=== PATIENT | female | born 1970 | race Caucasian/White ===

== ENCOUNTER 2019-09-27 11:13 | Outpatient (CLI) | payer OTHER, SELFPAY ==
--- NOTE | ~2019-09-27 | XR_ITS ---
EXAMINATION: XR chest 1V EXAM DATE: 09/27/2019 11:37 INDICATION: Left upper quadrant pain. TECHNIQUE: Frontal and lateral projections of the chest obtained and reviewed. Comparison is made to prior examination from 05/06/2005. FINDINGS: The lungs are clear. There are no pleural effusions. The cardiomediastinal silhouette is within normal limits. There is no pneumothorax suspected. Mild thoracic dextroscoliosis. IMPRESSION: No acute cardiopulmonary findings. Reviewed, dictated and finalized at location B.
--- NOTE | ~2019-09-27 | XR_ITS ---
EXAMINATION: XR abdomen obstructive series EXAM DATE: 09/27/2019 11:37 INDICATION: Left upper quadrant pain. TECHNIQUE: Frontal upright projection of the upper abdomen, frontal projection of the lower abdomen f or interpretation. There is no prior study for comparison. FINDINGS: There is expected amount of colonic stool and gas. No small bowel dilation, nonobstructiv e bowel gas pattern. There are no suspicious calcifications identified. There is no organomegaly suspected. Mild lumbar levoscoliosis. IMPRESSION: Unremarkable abdomen x-ray exam. Reviewed, dictated and finalized at location B.
== END 2019-09-27 11:14 | disposition home or self-care (01) ==
LOC: ANHIMG 11:23
PROVIDERS: PCP Nurse Practitioner; Visit Provider Nurse Practitioner
DX: R10.12 Left upper quadrant pain (principal)
CPT/HCPCS: 71045; 74019

== ENCOUNTER 2019-11-22 15:55 | Outpatient (CLI) | payer OTHER, SELFPAY ==
--- NOTE | ~2019-11-22 | MM_ITS ---
EXAMINATION: MM screening [facility] BI w ayesha HISTORY: Screening TECHNIQUE: Craniocaudal and mediolateral oblique 3-D tomosynthesis images were obtained and synthetic 2-D images were generated. CAD analysis was submitted and interpreted. COMPARISON: Comparison to multiple prior studies sequentially, with oldest reviewed study dated 09/2011. BREAST PARENCHYMAL COMPOSITION: There are scattered areas of fibroglandular density. FINDINGS: There is no evidence of suspicious mass, calcification, or architectural distortion to sugg est malignancy in either breast. There has been no suspicious interval change. IMPRESSION: 1. No mammographic evidence of malignancy. 2. Recommend routine screening mammography in one year. BI-RADS Category 1: Negative Reviewed, dictated and finalized at location A.
== END 2019-11-22 15:56 | disposition home or self-care (01) ==
LOC: ANHIMG 15:58
PROVIDERS: PCP Nurse Practitioner; Visit Provider Obstetrics & Gynecology
DX: Z12.31 Encounter for screening mammogram for malignant neoplasm of breast (principal)
CPT/HCPCS: 77063; 77067

== ENCOUNTER 2020-09-25 12:35 | Observation (INO) | payer OTHER, SELFPAY ==
--- NOTE | ~2020-09-25 | XR_ITS ---
XR chest 2V DATE: 09/25/2020 18:12 INDICATION: Syncope x2. Sternal chest pain towards the left side. TECHNIQUE: AP and lateral views COMPARISON: 09/27/2019 PA chest FINDINGS: There is dextro scoliosis of the thoracic spine. Normal heart size. No hilar or mediastinal enlargement. No pulmonary infiltrate or consolidation, ple ural effusion or pulmonary congestion or pneumothorax. IMPRESSION: No active cardiopulmonary disease Reviewed, dictated and finalized at location A.
--- NOTE | ~2020-09-25 | US_ITS ---
US renal BI 09/26/2020 09:50 Procedure: Realtime transabdominal ultrasound of the kidneys and bladder. Indication: Acute renal insufficiency. Comparison: 08/12/2016 Findings: Renal echotexture is normal bilaterally without hydronephrosis, contour deforming mass or r enal calculus. The right kidney measures 9.5 cm and left kidney measures 9.5 cm. Bladder is not well distended for evaluation. Impression: 1: Unremarkable renal ultrasound. No stones, masses or hydronephrosis. Reviewed, dictated and finalized at location A. Impression: 1: Unremarkable renal ultrasound. No stones, masses or hydronephrosis.
--- NOTE | ~2020-09-25 | CT_ITS ---
EXAMINATION: CT cervical spine wo con DATE: 09/25/2020 13:54 INDICATION: Syncope. TECHNIQUE: Computed tomography (CT) of the cervical spine was performed without intravenous contrast. Automated exposure control and iterative reconstruction technique were employed. The dose-length pro duct was 477.94 mGy-cm. COMPARISON: None FINDINGS: C1 ring is ununited posteriorly, a normal variant. Vertebral body heights are normal. There is mildly decreased disc height at C4-C5, severely decreased disc height at C5-C6, and moderately de creased disc height at C6-C7. The following disc levels are specifically discussed: C2-C3: There is no uncovertebral joint osteoarthritis. There is mild bilateral facet joint osteoarthr itis. There is no neural foraminal stenosis. There is no central canal stenosis. C3-C4: There is mild right and moderate left uncovertebral joint osteoarthritis. There is mild left f acet joint osteoarthritis. There is mild left neural foraminal stenosis. There is no central canal st enosis. C4-C5: There is severe right and mild left uncovertebral joint osteoarthritis. There is no facet join t osteoarthritis. There is mild bilateral neural foraminal stenosis. There is mild central canal sten osis. C5-C6: There is severe bilateral uncovertebral joint osteoarthritis. There is mild right facet joint osteoarthritis. There is moderate bilateral neural foraminal stenosis. There is mild central canal st enosis. C6-C7: There is severe bilateral uncovertebral joint osteoarthritis. There is mild right and severe l eft facet joint osteoarthritis. There is moderate right and mild left neural foraminal stenosis. Ther e is mild central canal stenosis. C7-T1: There is no uncovertebral joint osteoarthritis. There is severe bilateral facet joint osteoart hritis. There is mild bilateral neural foraminal stenosis. There is no central canal stenosis. IMPRESSION: 1. No fracture. 2. Severe cervical spondylosis. Reviewed, dictated and finalized at location B.
--- NOTE | ~2020-09-25 | CT_ITS ---
EXAMINATION: CT brain wo con DATE: 09/25/2020 13:54 INDICATION: Syncope. TECHNIQUE: Computed tomography (CT) of the head was performed without intravenous contrast. The mA wa s adjusted according to patient size. Iterative reconstruction technique was employed. The dose-lengt h product was 605.33 mGy-cm. COMPARISON: Head CT 07/01/2015 FINDINGS: There is no intracranial hemorrhage, acute infarction, or abnormal intracranial mass lesion . There are scattered areas of low attenuation in the cerebral white matter. The ventricles are chana l in size. There is complete opacification of the right frontal, right anterior ethmoid, and right ma xillary sinuses with thickening and sclerosis of the sinus alvarado, consistent with chronic sinusitis. The mastoid air cells are normal. The orbits are normal. IMPRESSION: 1. Mild nonspecific cerebral white matter disease, which likely represents chronic small vessel ische rafael disease. 2. Chronic sinusitis. Reviewed, dictated and finalized at location B. IMPRESSION: 1. Mild nonspecific cerebral white matter disease, which likely represents nail maker naomie small vessel ischemic disease. 2. Chronic sinusitis.
[2020-09-25 12:42] VITALS: PULSE 84; RESP 16; TEMP 36.4; O2SAT 100
[2020-09-25 15:36] VITALS: BP 103/70; PULSE 88; RESP 16; TEMP 36.3; O2SAT 99
[2020-09-25 17:48] VITALS: BP 114/76; PULSE 84; RESP 20; O2SAT 97
--- NOTE | 2020-09-25 17:50 | ECG_ITS ---
Measurements Intervals [place] Rate: 76 P: 50 RI: 173 QRS: -33 QRSD: 83 T: 201 QT: 384 QTc: 434 Interpretive Statements SINUS RHYTHM LEFT AXIS DEVIATION LEFT VENTRICULAR HYPERTROPHY WITH ST-T CHANGE CANNOT RULE OUT SEPTAL INFARCT, AGE INDETERMINATE BORDERLINE ST-T WAVE ABNORMALITY- ANTEROLAT/INF LEADS BASELINE ARTIFACT- I, II, AVR, V1 ABNORMAL ECG Electronically Signed On 09-25-2020 20:09:39 CDT by Renny Dai D.O.
--- NOTE | 2020-09-25 17:51 | ED.SYNCOPE ---
HPI - Syncope General Chief Complaint: Syncope Stated Complaint: syncope Time Seen by Provider: 09/25/20 17:35 Source: patient and RN notes reviewed Mode of arrival: ambulatory Limitations: no limitations History of Present Illness HPI narrative: This is a 50 year old female with history of migraines, fibromyalgia who presents for evaluation of syncopal episode. Patient states this morning she had a syncopal episode. She states she was walking to the kitchen to feed her cat. She reports opening the refrigeratory and she started feeling lightheaded and she passed out. She reports her was trying to help her up and she passed out again. Patient also reports intermittent nonradiating midsternal chest pain. She denies having chest at time of syncopal episode. She also reports her chest pain is not exertional and it only last 5 minutes. Related Data Home Medications Medication Instructions Recorded Confirmed testosterone 50 mg/5 gram (1 %) See Rx Instructions TRANSDERMAL 03/21/20 09/25/20 transdermal gel DAILY buspirone 15 mg PO HS 09/25/20 09/25/20 buspirone 30 mg PO BID 09/25/20 09/25/20 cetirizine [Zyrtec] 10 mg PO DAILY 09/25/20 09/25/20 clonazepam 0.5 mg PO QID PRN 09/25/20 09/25/20 cyclobenzaprine 10 mg PO QID PRN 09/25/20 09/25/20 dicyclomine 10 mg PO DAILY 09/25/20 09/25/20 fenofibrate 54 mg PO DAILY 09/25/20 09/25/20 gabapentin 300 mg PO TID 09/25/20 09/25/20 hydrocodone-acetaminophen 10 tablet PO Q4H PRN 09/25/20 09/25/20 hydroxyzine HCl 50 mg PO HS 09/25/20 09/25/20 levothyroxine [Euthyrox] 25 mcg PO DAILY 09/25/20 09/25/20 losartan-hydrochlorothiazide 50 tablet PO DAILY 09/25/20 09/25/20 meloxicam 7.5 mg PO DAILY 09/25/20 09/25/20 metformin 1,000 mg PO BID 09/25/20 09/25/20 omeprazole 40 mg PO DAILY 09/25/20 09/25/20 propranolol 120 mg PO HS 09/25/20 09/25/20 ropinirole 1 mg PO DAILY PRN 09/25/20 09/26/20 topiramate 50 mg PO DAILY 09/25/20 09/25/20 vilazodone [Viibryd] 40 mg PO HS 09/25/20 09/25/20 Allergies Allergy/AdvReac Type Severity Reaction Status Date / Time Penicillins Allergy Unknown Rash Verified 09/26/20 00:15 sumatriptan AdvReac Intermediate gi upset Verified 09/26/20 00:15 Review of Systems Review of Systems: All systems reviewed & are unremarkable except as noted in HPI and below Constitutional: Constitutional: Denies chills and Denies fever(s) Eyes: Eyes: Denies change in vision and Denies photophobia ENT: Reports nasal congestion and Denies sore throat Cardiovascular: Cardiovascular: Reports chest pain, Denies rapid heart rate and Denies radiating jaw, neck or arm pain Respiratory: Respiratory: Denies cough, Denies dyspnea and Denies wheezing Gastrointestinal: Gastrointestinal: Denies abdominal pain, Denies diarrhea, Denies nausea and Denies vomiting Neurologic: Reports syncope [facility] Past Medical History Medical History (Updated 09/26/20 @ 01:45 by Heidy Garcia MD) Acid reflux Anxiety Asthma Disorder of thyroid Fibromyalgia High cholesterol Surgical History Surgical History (Updated 12/03/19 @ 09:54 by Ingrid Craft) H/O removal of cyst tailbone H/O tubal ligation History of appendectomy History of colposcopy Family History Family History Mother Diabetes mellitus Hypertension Hyperlipidemia Father Hyperlipidemia Hypertension Social History Social History (Updated 12/03/19 @ 09:55 by Ingrid Craft) Smoking status: Never smoker Alcohol intake: never Substance use: current Substance use type: does not use Spiritual care concerns: No Exam Const: General: no acute distress and alert Nutritional Appearance: obese Eyes: Pupils: Equal, round and reactive pupils present EOM: EOMs intact bilaterally Chest: Chest palpation & inspection: normal inspection of the chest Resp: Effort & Inspection: normal respiratory effort and no retractions Auscultatio
[2020-09-25 18:09] LABS: Basophils Absolute Auto 0.1 K/mm3 (0.0-0.1); Basophils Percent Auto 0.5 % (0.2-1.2); Eosinophils Absolute Auto 0.2 K/mm3 (0-0.3); Eosinophils Percent Auto 1.6 % (0-4.4); Hematocrit 49.7 % (37.0-47.0); Hemoglobin 15.9 g/dL (12.0-15.0); Immature Granulocyte Absolute 0.03 K/mm3 (0.00-0.031); Immature Granulocyte Percent A 0.3 % (0-0.5); Lymphocytes Absolute Auto 6.43 K/mm3 (0.9-3.2); Lymphocytes Percent Auto 56.5 % (18.3-44.2); Mean Corpuscular Volume 90.5 fl (80-100); Mean Platelet Volume 10.6 fl (7.4-10.4); Monocytes Absolute Auto 0.9 K/mm3 (0.1-0.6); Monocytes Percent Auto 7.8 % (2.6-8.5); Neutrophils Absolute Auto 3.8 K/mm3 (1.3-6.7); Neutrophils Percent Auto 33.3 % (45.5-73.1); Platelet Count Result 359 k/mm3 (150-375); Red Blood Count 5.49 M/mm3 (4.2-5.4); Red Cell Distribution Width 12.8 % (11.5-14.5); White Blood Count 11.4 K/mm3 (4.5-10.0)
[2020-09-25 18:21] LABS: INR 0.9; Prothrombin Time 11.9 Seconds (11.1-14.7)
[2020-09-25 18:22] LABS: Partial Thromboplastin Time 24.6 SECONDS (22.3-36.8)
[2020-09-25 18:24] LABS: Alanine Aminotransferase 33 U/L (4-35); Albumin Level 4.8 g/dL (3.5-5.1); Alkaline Phosphatase 80 U/L (38-126); Anion Gap 12 mmol/L (8-16); Aspartate Amino Transferase 62 U/L (14-36); Bilirubin,Total 0.7 mg/dL (0.2-1.3); Blood Urea Nitrogen 29 mg/dL (7-17); Calcium 10.6 mg/dL (8.4-10.2); Carbon Dioxide 23 mmol/L (22-30); Chloride 108 mmol/L (98-107); D Dimer 0.36 ug/mL (<0.48); Estimated CRCL calculation 37 ml/min; Estimated Glomerular Filt Rate 25; Glucose 127 mg/dL (65-110); Potassium 4.6 mmol/L (3.4-5.0); Sodium 143 mmol/L (137-145)
[2020-09-25 18:36] LABS: Troponin I < 0.012 ng/mL (0.000-0.034)
[2020-09-25] MEDS: SODIUM CHLORIDE 0.9% IV 1,000 ML 999 ML IV CONT ×2 (18:42)
[2020-09-25 19:57] LABS: Add Urine Microscopic? YES; Appearance Urine Cloudy (Clear); Bilirubin Urine 2+ (Negative); Blood Urine Negative (Negative); Color Urine Amber (Yellow); Glucose Urine UA Negative (Negative); Ketones Urine Negative (Negative); Leukocyte Esterase Ur 3+ LEU/UL (Negative); Nitrate Urine Negative (Negative); Protein Urine 2+ mg/dL (Negative); RBC Urine 0-2 /hpf (0-2); Specific Grav Ur 1.027 (1.001-1.035); Squamous Epithelial Cell Urine Rare /hpf (Few); WBC Urine 0-3 /hpf
[2020-09-25 20:00] VITALS: PULSE 83
--- NOTE | 2020-09-25 20:41 | PM.IMHP ---
H&P: HPI History of Present Illness Date/Time: 09/25/20 20:41 Chief Complaint: Syncope Narrative: This is a 50-year-old female with past medical history significant for type 2 diabetes mellitus on metformin, hypertension, hypothyroidism, fibromyalgia, dyslipidemia, asthma, anxiety, GERD. Patient presented to the emergency room after she had a syncopal episode according to patient she was standing feeding the cat when she felt every sitting in turning black around her aunt neck is thin she was found laying on the floor by her who was in the house. Patient states that she has been her usual state of health prior to this. She denies any fevers, rigors ,chills, nausea, vomiting, diarrhea, shortness of breath, cough, sputum production, chest pain, dizziness, lightheadedness, headaches, tremors. Preliminary workup has been essentially nonrevealing. Patient has been placed in observation. Review of Systems Review of Systems: Patient brought to the hospital due to syncopal episode. Constitutional: Constitutional: Denies chills, Denies fatigue, Denies fever(s), Denies frequent falls, Denies headache(s), Denies malaise and Denies weakness Eyes: Eyes: Denies change in vision ENT: Denies dysphagia, Denies vertigo, Denies dizziness, Denies nasal congestion, Denies nasal discharge, Denies nasal obstruction and Denies odynophagia Cardiovascular: Cardiovascular: Reports syncope, Denies irregular heart rhythm, Denies leg edema, Reports lightheadedness, Denies radiating jaw, neck or arm pain, Denies palpitations, Denies dyspnea, Denies dyspnea on exertion and Denies orthopnea Respiratory: Respiratory: Denies cough and Denies dyspnea Gastrointestinal: Gastrointestinal: Denies dyspepsia, Denies heartburn, Denies diarrhea, Denies nausea and Denies vomiting Genitourinary: Genitourinary: Reports no additional female genitourinary complaints Musculoskeletal: Musculoskeletal: Reports no additional musculoskeletal complaints Integumentary/Breasts: Skin/Breast: Reports system reviewed and no additional complaints, except as docu Neurologic: Reports system reviewed and no additional complaints, except as documented Psychiatric: Psychiatric: Reports no additional psychiatric complaints Endocrine: Endocrine: Reports no additional endocrine complaints Hematologic/Lymphatic: Hematologic/Lymphatic: Reports no additional hematologic/lymphatic complaints Allergic/Immunologic: Allergic/Immunologic: Reports no additional allergic/immunologic complaints PMFSH Past Medical History Medical History (Updated 09/25/20 @ 22:47 by Aram Patricio MD) Acid reflux Anxiety Asthma Disorder of thyroid Fibromyalgia High cholesterol Surgical History Surgical History (Updated 12/03/19 @ 09:54 by Ingrid Craft) H/O removal of cyst tailbone H/O tubal ligation History of appendectomy History of colposcopy Family History Family History (Updated 12/03/19 @ 09:55 by Ingrid Craft) Mother Diabetes mellitus Hypertension Hyperlipidemia Father Hyperlipidemia Hypertension Social History Social History (Updated 12/03/19 @ 09:55 by Ingrid Craft) Smoking status: Never smoker Alcohol intake: never Substance use: never Meds Home Medications and Allergies Home Medications Medication Instructions Recorded Confirmed Type estradiol 1 g VAGINAL 3XW #42.5 g 12/28/19 09/25/20 Rx testosterone 50 mg/5 gram (1 %) See Rx Instructions TRANSDERMAL 03/21/20 09/25/20 History transdermal gel DAILY buspirone 15 mg PO HS 09/25/20 09/25/20 History buspirone 30 mg PO BID 09/25/20 09/25/20 History cetirizine [Zyrtec] 10 mg PO DAILY 09/25/20 09/25/20 History clonazepam 0.5 mg PO QID PRN 09/25/20 09/25/20 History cyclobenzaprine 10 mg PO QID PRN 09/25/20 09/25/20 History dicyclomine 10 mg PO DAILY 09/25/20 09/25/20 History fenofibrate 54 mg PO DAILY 09/25/20 09/25/20 History gabapentin 300 mg PO TID 09/25/20 09/25/20 History hydrocodone-
[2020-09-25 22:19] VITALS: PULSE 84; RESP 20; O2SAT 97
[2020-09-25 22:30] VITALS: BP 151/94; PULSE 78; RESP 20; TEMP 36.1; O2SAT 98; BMI 41.0
[2020-09-25] MEDS: SODIUM CHLORIDE 0.9% IV 1,000 ML 125 ML IV CONT (23:30)
[2020-09-26] VITALS (13 sets, daily range): BP systolic 111–145; BP diastolic 63–84; PULSE 63–86; RESP 18–20; TEMP 35.8–36.7; O2SAT 98–100
[2020-09-26] MEDS: GABAPENTIN 300 MG CAPSULE PO ×4 (00:06→16:43)
[2020-09-26] MEDS: PROPRANOLOL HCL 60 MG CAPSULE CR 120 MG PO ×2 (00:06→20:53)
[2020-09-26] MEDS: hydrOXYzine HCL 25 MG TABLET 50 MG PO ×2 (00:06→20:53)
[2020-09-26] MEDS: busPIRone HCL 5 MG TABLET 15 MG PO ×2 (00:08→20:53)
--- NOTE | 2020-09-26 00:12 | ADMGEN ---
This patient, Amrita Hartman, was admitted to Medical Room 252-01. Patient/family oriented to hospital policies and general routines including ID bracelet, bed and alarms, visiting hours, pain management, procedures, bathroom and other care routines, personal items, smoking policy, room service/diet, and visiting hours. Information on how to activate the Rapid Response Team has been discussed. Patient/Family are encouraged to report perceived risks to care and to ask questions if they do not understand what they are told or what they should do.
[2020-09-26] MEDS: LEVOTHYROXINE SODIUM 25 MCG TABLET PO (05:36)
[2020-09-26 05:54] LABS: Hematocrit 40.2 % (37.0-47.0); Hemoglobin 12.7 g/dL (12.0-15.0); Mean Corpuscular HGB Conc 31.6 g/dl (32-36); Mean Corpuscular Volume 91.8 fl (80-100); Mean Platelet Volume 10.3 fl (7.4-10.4); Platelet Count Result 280 k/mm3 (150-375); Red Blood Count 4.38 M/mm3 (4.2-5.4); Red Cell Distribution Width 12.8 % (11.5-14.5); White Blood Count 9.5 K/mm3 (4.5-10.0)
--- NOTE | 2020-09-26 07:16 | PM.IMPN ---
Progress Note: A&P Assessment and Plan (1) Syncope and collapse: Code(s): R55 - Syncope and collapse Status: Acute Assessment and Plan: Receiving IV fluids Unclear etiology. Need to rule out cardiac etiologies. Suspect secondary to large amount of psychotropic medications and sedatives that patient is taking. CT head reviewed which is negative for any acute intracranial pathology. Echocardiogram is pending. Cardiology has been consulted. Supportive care Up with assistance. PT OT will be consulted. (2) EZEQUIEL (acute kidney injury): Code(s): N17.9 - Acute kidney failure, unspecified Status: Acute Assessment and Plan: Renal parameters improving with creatinine of 1.6 today which is down from 2.1 yesterday. Holding lisinopril and hydrochlorothiazide Renal ultrasound has been ordered. Receiving IV fluids which will be continued. Repeat BMP in a.m. Subjective Date/time seen: 09/26/20 07:16 She is feeling better. She denied have any further episodes of syncope. He denied have any cough shortness of breath chest pain palpitation dizziness or lightheadedness. Review of Systems Review of Systems: A comprehensive review of systems has been reviewed with the patient and most of the symptoms are negative except the one's mentioned above in HPI. 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 oriented x3 Psychiatric cooperative appropriate mood and affect Extremities no edema Objective Data Vital Signs Vital Signs: Vital Signs - 24 hr 09/25/20 12:42 09/25/20 15:36 09/25/20 17:48 Temperature 36.4 C 36.3 C L Pulse Rate 84 88 84 Respiratory Rate 16 16 20 Blood Pressure 103/70 114/76 Pulse Oximetry 100 99 97 09/25/20 20:00 09/25/20 22:19 09/25/20 22:30 Temperature 36.1 C L Pulse Rate 83 84 78 Respiratory Rate 20 20 Blood Pressure 151/94 H Pulse Oximetry 97 98 09/26/20 00:00 09/26/20 00:06 09/26/20 04:00 Temperature Pulse Rate 85 74 71 Respiratory Rate Blood Pressure Pulse Oximetry Intake/Output Intake/Output: Intake & Output 08/17/21 08/18/21 08/19/21 08/20/21 23:59 23:59 23:59 23:59 Intake Total 1999 Balance 1999 Meds/Results Medications: Active Medications Generic Name Dose Route Start Last Admin Trade Name Freq PRN Reason Stop Dose Admin Hydrocodone Bitart/Acetaminophen 1 tab 09/26/20 05:02 Hydrocodone/Acetaminophen (*Crx) 10-325 Mg Tablet PO Q4H PRN Pain Rated 7-10 Buspirone HCl 30 mg 09/26/20 09:00 Buspirone Hcl 10 Mg Tablet PO BID ELLIS Buspirone HCl 15 mg 09/25/20 22:40 09/26/20 00:08 Buspirone Hcl 5 Mg Tablet PO 15 mg HS ELLIS Administration Clonazepam 0.5 mg 09/25/20 22:29 Clonazepam (*Crx) 0.5 Mg Tablet PO QID PRN Anxiety Cyclobenzaprine HCl 10 mg 09/25/20 22:29 Cyclobenzaprine Hcl 10 Mg Tablet PO QID PRN Muscle Spasm Dicyclomine HCl 10 mg 09/26/20 09:00 Dicyclomine Hcl 10 Mg Capsule PO DAILY ELLIS Gabapentin 300 mg 09/25/20 23:00 09/26/20 00:06 Gabapentin 300 Mg Capsule PO 300 mg TID ELLIS Administration Hydroxyzine HCl 50 mg 09/25/20 23:00 09/26/20 00:06 Hydroxyzine Hcl 25 Mg Tablet PO 50 mg HS ELLIS Administration Sodium Chloride 1,000 mls @ 125 mls/hr 09/25/20 19:00 09/25/20 23:30 Normal Saline Iv IV CONT 125 mls/hr .Q8H ELLIS Administration Levothyroxine Sodium 25 mcg 09/26/20 06:30 09/26/20 05:36 Levothyroxine Sodium 25 Mcg Tablet PO 25 mcg DAILY@0630 ELLIS Administration Loratadine 10 mg 09/26/20 09:00 Loratadine 10 Mg Tablet PO QAM ELLIS Non-Formulary Medication 54 mg 09/26/20 09:00 Fenofibrate PO 10/26/20 09:01 DAILY ELLIS Non-Formulary Medication 40 mg 09/26/20 21:00 Vilazodone [Viibryd] PO 10/26/20 21:01 H
[2020-09-26] MEDS: SODIUM CHLORIDE 0.9% IV 1,000 ML 125 ML IV CONT ×2 (08:39→17:31)
[2020-09-26] MEDS: PANTOPRAZOLE 40 MG TABLET PO (08:41)
[2020-09-26] MEDS: LORATADINE 10 MG TABLET PO (08:41)
[2020-09-26] MEDS: DICYCLOMINE HCL 10 MG CAPSULE PO (08:41)
[2020-09-26] MEDS: busPIRone HCL 10 MG TABLET 30 MG PO ×2 (08:41→16:43)
[2020-09-26] MEDS: TOPIRAMATE 25 MG TABLET 50 MG PO (08:41)
[2020-09-26 08:44] LABS: Alanine Aminotransferase 24 U/L (4-35); Albumin Level 3.7 g/dL (3.5-5.1); Alkaline Phosphatase 57 U/L (38-126); Anion Gap 7 mmol/L (8-16); Aspartate Amino Transferase 38 U/L (14-36); Bilirubin,Total 0.6 mg/dL (0.2-1.3); Blood Urea Nitrogen 27 mg/dL (7-17); Calcium 9.2 mg/dL (8.4-10.2); Carbon Dioxide 23 mmol/L (22-30); Chloride 109 mmol/L (98-107); Estimated CRCL calculation 48 ml/min; Estimated Glomerular Filt Rate 34; Glucose 105 mg/dL (65-110); Potassium 3.5 mmol/L (3.4-5.0); Sodium 139 mmol/L (137-145)
[2020-09-26 09:06] LABS: Glucose Point of Care 111 mg/dl (65-105)
[2020-09-26 09:47] LABS: Band Neutrophils Percent 1 % (0-6); Eosinophils Absolute Manual 0.47 K/mm3 (0.02-0.5); Eosinophils Percent Manual 5 % (0-4); Lymphocytes Absolute Manual 4.37 K/mm3 (1.1-4.5); Monocytes Absolute Manual 0.28 K/mm3 (0.1-0.90); Monocytes Percent Manual 3 % (3-9); Neutrophils Absolute Manual 4.37 K/mm3 (1.7-7.2); Neutrophils Percent Manual 45 % (46-73); Total Cells Counted 100
[2020-09-26 09:48] LABS: Platelet Estimate Adequate (Adequate)
[2020-09-26 12:46] LABS: Glucose Point of Care 150 mg/dl (65-105)
[2020-09-26] MEDS: FENOFIBRATE,MICRONIZED 48 MG TABLET PO (14:10)
--- NOTE | 2020-09-26 14:11 | PM.CNCAR ---
Assessment and Plan Assessment and plan (1) Syncope and collapse: Code(s): R55 - Syncope and collapse <STARLA Barlow - Last Filed: 09/26/20 14:47> Status: Acute <STARLA Barlow - Last Filed: 09/26/20 14:47> Assessment and Plan: Two episodes of syncope with brief periods of loss of consciousness per the who witnessed both events. Dizziness, diaphoresis, flushing associated with the first occurrence of syncope. She does report a history of palpitations but denies feeling any palpitations associated with either of these recent syncopal events. She is in normal sinus rhythm currently and has not had any tachy or carlos arrhythmias noted on telemetry. Unlikely that syncope has a cardiac cause. Continue to monitor on telemetry Check orthostatic vitals BUN/Cr elevated. Could be dehydrated although she says she drinks plenty of water. No excessive diuretic use. She's receiving IV fluids. Echo pending OP quality assurance monitor final Further recommendations to follow after echo reviewed. <STARLA Barlow - Last Filed: 09/26/20 14:47> (2) Hypertension: Code(s): I10 - Essential (primary) hypertension <STARLA Barlow - Last Filed: 09/26/20 14:47> Status: Acute <STARLA Barlow - Last Filed: 09/26/20 14:47> Assessment and Plan: At goal. Continue home antihypertensives. <STARLA Barlow - Last Filed: 09/26/20 14:47> (3) High cholesterol: Code(s): E78.00 - Pure hypercholesterolemia, unspecified <STARLA Barlow - Last Filed: 09/26/20 14:47> Status: Acute <STARLA Barlow - Last Filed: 09/26/20 14:47> Assessment and Plan: Continue Fenofibrate <STARLA Barlow - Last Filed: 09/26/20 14:47> Additional Plan Attending addendum: I have personally seen and examined patient at bedside. I agree with the above documentation and plan of care as outlined. Patient presents with 2 episodes of syncope most likely vasovagal etiology symptomatic initially. Earlier vitals this morning document mild orthostasis. Patient presented with acute renal insufficiency with evidence of prerenal azotemia, hemoconcentration with elevated hemoglobin appropriately reduced with IV fluids which are continue at this time. Patient denies dizziness lightheadedness currently. Urinalysis with 3+ leukocyte esterase no wbc's Or symptoms. Patient denies chest pain, palpitations or shortness of breath. Patient has no complaints. examination: no apparent distress alert orient x3 breathing comfortably speaking full sentences sitting upright in bed. Lungs clear to auscultation cardiac regular rate and rhythm normal S1-S2 no murmurs clicks rubs gallops. Abdomen is soft obese nontender extremities no edema clubbing or cyanosis neurologic nonfocal exam psychiatric mood, appropriate impression/plan most likely vasovagal etiology of syncope with evidence of acute renal insufficiency, mild orthostasis and multiple psychotropic medications as well as antihypertensives with hydrochlorothiazide. Discontinue diuretic. Adjustment antihypertensives as appropriate. Discontinue IV fluids, check orthostatics. Will review echocardiogram unavailable which has not yet been performed. Recommendation to follow after review of echo. If echo unremarkable patient remains asymptomatic discharge home to follow-up with primary care physician as an outpatient. Primary service to assess urinalysis. Telemetry unremarkable without pauses and/or tachyarrhythmias. Thank for this consultation. <Myles Ghotra MD - Last Filed: 09/26/20 17:14> History of Present Illness History of Present Illness Consult date/time: 09/26/20 14:11 <STARLA Barlow - Last Filed: 09/26/20 14:47> Requesting physician: Fredo Kirkpatrick MD <STARLA Barlow - Last Filed: 09/26/20 14:47> Consult reason: Other ([facility]co
[2020-09-26] MEDS: HYDROcodone/acetaminophen (*CRX) 10-325 MG TABLET 1 TAB PO (14:15)
[2020-09-26 16:59] LABS: Glucose Point of Care 132 mg/dl (65-105)
[2020-09-26] MEDS: rOPINIRole HCL 1 MG TABLET PO (20:54)
[2020-09-26 21:05] LABS: Glucose Point of Care 154 mg/dl (65-105)
[2020-09-27] VITALS: PULSE 73
[2020-09-27] MEDS: SODIUM CHLORIDE 0.9% IV 1,000 ML 125 ML IV CONT ×2 (01:03→08:31)
[2020-09-27 04:00] VITALS: PULSE 73
[2020-09-27] MEDS: LEVOTHYROXINE SODIUM 25 MCG TABLET PO (05:11)
[2020-09-27 06:00] VITALS: BP 154/82; PULSE 73; RESP 18; TEMP 36.5; O2SAT 99
--- NOTE | 2020-09-27 06:00 | ECHO_ITS ---
Patient Info Name: Amrita Hartman Age: 50 years : 1970 Gender: Female Ht: 66 in Wt: 254 lbs BSA: 2.37 m2 HR: 73 bpm BP: 136 / 74 mmHg Technical Quality: Good Exam Date: 09/27/2020 8:31 AM Exam Location: [facility] Patient Status: Outpatient Admit Date: 09/25/2020 Staff Ordering Physician: Heidy Garcia MD Industrial Hygiene Manager: Argenis Valenzuela RDCS Attending Provider: Fredo Kirkpatrick MD Referring Physician: Radha CONCEPCION; Exam Type: CA echo doppler color flow Study Info Complete two-dimensional, color flow and Doppler transthoracic echocardiogram is performed. Summary 1. Complete two-dimensional, color flow and Doppler transthoracic echocardiogram is performed. 2. Left ventricular chamber dimension is normal. 3. Left ventricular systolic function is normal, estimated at 55-60%. 4. Left ventricular septal wall motion is normal. 5. There is mildly increased left ventricular wall thickness. 6. The left ventricular diastolic function is normal. 7. Right ventricular chamber dimension is mildly enlarged. 8. Right ventricular systolic function is normal. Left Ventricle Left ventricular chamber dimension is normal. Left ventricular systolic function is normal, estimated at 55-60%. There is mildly increased left ventricular wall thickness. Left ventricular septal wall motion is normal. The left ventricular diastolic function is normal. Right Ventricle Right ventricular chamber dimension is mildly enlarged. Right ventricular systolic function is normal. Left Atria Left atrial chamber dimension is normal. Right Atria Right atrial chamber dimension is normal. Aortic Valve The aortic valve is trileaflet. There is no aortic valve sclerosis. There is no aortic valve stenosis. There is no aortic valve regurgitation. Pulmonic Valve The pulmonic valve is normal. There is no pulmonic valve stenosis. There is no pulmonic regurgitation. Mitral Valve The mitral valve has normal leaflets. There is no mitral valve stenosis. There is no mitral valve regurgitation. Tricuspid Valve The tricuspid valve leaflets are normal. There is no significant tricuspid valve stenosis. There is trace tricuspid valve regurgitation. No pulmonary hypertension, estimated pulmonary arterial systolic pressure is 26 mmHg. Pericardium/Pleural The pericardium appears normal. There is no pericardial effusion. Inferior Vena Cava Inferior vena cava is not well visualized. Aorta The aortic root size at the sinus of Valsalva is normal. The prox ascending aorta size is normal. Left Ventricular Outflow Tract Name Value Normal LVOT 2D LVOT Diameter 2.2 cm LVOT Doppler LVOT Peak Gradient 5 mmHg LVOT Mean Gradient 3 mmHg LVOT VTI 23 cm LVOT VTI/AV VTI Ratio 1.1 LVOT Stroke Volume 85 ml LVOT CO 4.2 l/min LVOT CI 1.8 l/min/m2 Pulmonic Valve
[2020-09-27 06:13] LABS: Basophils Absolute Auto 0.1 K/mm3 (0.0-0.1); Basophils Percent Auto 0.7 % (0.2-1.2); Eosinophils Absolute Auto 0.3 K/mm3 (0-0.3); Eosinophils Percent Auto 4.1 % (0-4.4); Hematocrit 37.4 % (37.0-47.0); Immature Granulocyte Absolute 0.01 K/mm3 (0.00-0.031); Immature Granulocyte Percent A 0.1 % (0-0.5); Lymphocytes Absolute Auto 4.78 K/mm3 (0.9-3.2); Lymphocytes Percent Auto 62.6 % (18.3-44.2); Mean Corpuscular HGB Conc 32.1 g/dl (32-36); Mean Corpuscular Hemoglobin 29.6 pg (26-34); Mean Corpuscular Volume 92.3 fl (80-100); Mean Platelet Volume 10.9 fl (7.4-10.4); Monocytes Absolute Auto 0.8 K/mm3 (0.1-0.6); Monocytes Percent Auto 10.7 % (2.6-8.5); Neutrophils Absolute Auto 1.7 K/mm3 (1.3-6.7); Neutrophils Percent Auto 21.8 % (45.5-73.1); Platelet Count Result 249 k/mm3 (150-375); Red Blood Count 4.05 M/mm3 (4.2-5.4); Red Cell Distribution Width 12.9 % (11.5-14.5); White Blood Count 7.6 K/mm3 (4.5-10.0)
[2020-09-27 06:29] LABS: Hemoglobin A1C 5.6 % (<5.7)
[2020-09-27 06:44] LABS: Anion Gap 6 mmol/L (8-16); Blood Urea Nitrogen 15 mg/dL (7-17); Carbon Dioxide 25 mmol/L (22-30); Chloride 111 mmol/L (98-107); Estimated CRCL calculation 69 ml/min; Estimated Glomerular Filt Rate 52; Glucose 102 mg/dL (65-110); Potassium 3.5 mmol/L (3.4-5.0); Sodium 142 mmol/L (137-145)
[2020-09-27] MEDS: busPIRone HCL 10 MG TABLET 30 MG PO (08:23)
[2020-09-27] MEDS: GABAPENTIN 300 MG CAPSULE PO ×2 (08:24→12:40)
[2020-09-27] MEDS: LORATADINE 10 MG TABLET PO (08:24)
[2020-09-27] MEDS: TOPIRAMATE 25 MG TABLET 50 MG PO (08:24)
[2020-09-27] MEDS: FENOFIBRATE,MICRONIZED 48 MG TABLET PO (08:24)
[2020-09-27] MEDS: DICYCLOMINE HCL 10 MG CAPSULE PO (08:24)
[2020-09-27] MEDS: PANTOPRAZOLE 40 MG TABLET PO (08:24)
[2020-09-27 08:25] VITALS: PULSE 71
[2020-09-27 08:45] LABS: Glucose Point of Care 102 mg/dl (65-105)
[2020-09-27 10:15] VITALS: BP 133/72; BP 146/81; BP 150/91
[2020-09-27 12:00] VITALS: PULSE 70
[2020-09-27 13:05] LABS: Glucose Point of Care 102 mg/dl (65-105)
--- NOTE | 2020-09-27 15:13 | PM.DS ---
DS: Admitting Diagnosis Admitting Diagnosis Syncope Fibromyalgia Hypothyroidism Asthma Anxiety GERD Acute kidney injury Dehydration Hypercholesterolemia DS: Discharge Diagnosis Discharge Diagnosis (1) Syncope and collapse: Code(s): R55 - Syncope and collapse Status: Acute Assessment and Plan: Unclear etiology. Seems vasovagal syncope in nature. Suspect secondary to large amount of psychotropic medications, dehydration and sedatives that patient is taking. She was mildly orthostatic as well. She was hydrated with IV fluids. CT head reviewed which is negative for any acute intracranial pathology. Echocardiogram was performed which did not show any significant findings. Ejection fraction was 55-60%. Cardiology has been consulted with no further workup recommended. She was hydrated with IV fluids. Diuretics was discontinued at the time of discharge. No significant event reported on telemetry. Supportive care She is ambulating with PT OT without any difficulty. (2) EZEQUIEL (acute kidney injury): Code(s): N17.9 - Acute kidney failure, unspecified Status: Acute Assessment and Plan: Renal parameters improved. Her creatinine was 1.1 today which was 2.1 at the time of presentation. Lisinopril will be resumed. Will continue to hold hydrochlorothiazide. Renal ultrasound was done which was negative for any obstructive uropathy. She was resuscitated with IV fluids. DS: Summary Hospital Course Hospital Course: As above Time Spent with Patient Time attestation: Total time spent providing and/or coordinating discharge services: > 35 minutes Exam Narrative: General awake and alert not in acute distress Neck supple CVS S1-S2 no murmur Respiratory no wheezes or crepitation GI soft nontender nondistended NOVELTY TWISTER TENDER alert oriented x3 Psychiatric cooperative appropriate mood and affect Extremities no edema DS: Data Data Completed and Pending Labs on day of discharge: Labs from last 24 hours 09/27/20 09/27/20 09/27/20 12:39 08:22 05:21 WBC RBC Hgb Hct MCV MCH MCHC RDW Plt Count MPV Immature Gran % (Auto) Neut % (Auto) Lymph % (Auto) Hanson % (Auto) Eos % (Auto) Baso % (Auto) Lymph # (Auto) Hanson # (Auto) Eos # (Auto) Baso # (Auto) Abs Immat Gran (auto) Absolute Neuts (auto) Absolute Nucleated RBC Nucleated RBC % Sodium Potassium Chloride Carbon Dioxide Anion Gap BUN Creatinine Estim Creat Clear Calc Estimated GFR Glucose POC Capillary Glucose 102 102 Hemoglobin A1c 5.6 Calcium 09/27/20 09/27/20 09/26/20 05:21 05:21 20:52 WBC 7.6 RBC 4.05 L Hgb 12.0 Hct 37.4 MCV 92.3 MCH 29.6 MCHC 32.1 RDW 12.9 Plt Count 249 MPV 10.9 H Immature Gran % (Auto) 0.1 Neut % (Auto) 21.8 L Lymph % (Auto) 62.6 H Hanson % (Auto) 10.7 H Eos % (Auto) 4.1 Baso % (Auto) 0.7 Lymph # (Auto) 4.78 H Hanson # (Auto) 0.8 H Eos # (Auto) 0.3 Baso # (Auto) 0.1 Abs Immat Gran (auto) 0.01 Absolute Neuts (auto) 1.7 Absolute Nucleated RBC 0.0 Nucleated RBC % 0.0 Sodium 142 Potassium 3.5 Chloride 111 H Carbon Dioxide 25 Anion Gap 6 L BUN 15 D Creatinine 1.10 H Estim Creat Clear Calc 69 Estimated GFR 52 L Glucose 102 POC Capillary Glucose 154 H Hemoglobin A1c Calcium 9.0 09/26/20 16:57 WBC RBC Hgb Hct MCV MCH MCHC RDW Plt Count MPV Immature Gran % (Auto) Neut % (Auto) Lymph % (Auto) Hanson % (Auto) Eos % (Auto) Baso % (Auto) Lymph # (Auto) Hanson # (Auto) Eos # (Auto) Baso # (Auto) Abs Immat Gran (auto) Absolute Neuts (auto) Absolute Nucleated RBC Nucleated RBC % Sodium Potassium Chloride Carbon Dioxide Anion Gap BUN Creatinine Estim Creat Clear Calc Estimated GFR Glucose POC Capillary Glucose 132 H Hemogl
== END 2020-09-27 15:20 | disposition home or self-care (01) ==
LOC: ANHED 18:26 → ANH2MED 20:30
PROVIDERS: Admitting Provider Internal Medicine Critical Care Medicine; Emergency Provider General Practice; PCP Nurse Practitioner; Visit Provider Internal Medicine Critical Care Medicine
DX: R55 Syncope and collapse (principal); N17.9 Acute kidney failure, unspecified; E11.9 Type 2 diabetes mellitus without complications; E03.9 Hypothyroidism, unspecified; E78.5 Hyperlipidemia, unspecified; F41.9 Anxiety disorder, unspecified; I10 Essential (primary) hypertension; J45.909 Unspecified asthma, uncomplicated; K21.9 Gastro-esophageal reflux disease without esophagitis; M79.7 Fibromyalgia; Z79.84 Long term (current) use of oral hypoglycemic drugs
CPT/HCPCS: 36415; 70450; 71046; 72125; 76775; 80048; 80053; 81001; 82948; 83036; 84484; 85025; 85380; 85610; 85730; 93005; 93306; 96360; 96361; 99285; A9270; G0378; G0379; J7030

== ENCOUNTER 2020-12-10 12:56 | Outpatient (CLI) | payer OTHER, SELFPAY ==
--- NOTE | ~2020-12-10 | MM_ITS ---
EXAMINATION: MM screening [facility] BI w ayesha HISTORY: Screening TECHNIQUE: Craniocaudal and mediolateral oblique 3-D tomosynthesis images were obtained and synthetic 2-D images were generated. CAD analysis was submitted and interpreted. COMPARISON: Comparison to multiple prior studies sequentially, with oldest reviewed study dated 09/2011. BREAST PARENCHYMAL COMPOSITION: There are scattered areas of fibroglandular density. FINDINGS: There is no evidence of suspicious mass, calcification, or architectural distortion to sugg est malignancy in either breast. There has been no suspicious interval change. IMPRESSION: 1. No mammographic evidence of malignancy. 2. Recommend routine screening mammography in one year. BI-RADS Category 1: Negative Reviewed, dictated and finalized at location A.
== END 2020-12-10 12:57 | disposition home or self-care (01) ==
LOC: ANHIMG 12:59
PROVIDERS: PCP Nurse Practitioner; Visit Provider Obstetrics & Gynecology
DX: Z12.31 Encounter for screening mammogram for malignant neoplasm of breast (principal)
CPT/HCPCS: 77063; 77067

== ENCOUNTER 2021-08-22 11:55 | Emergency (ER) | payer OTHER, SELFPAY ==
--- NOTE | ~2021-08-22 | CT_ITS ---
EXAMINATION: CT brain wo con DATE: 08/22/2021 14:01 INDICATION: Intermittent headache for one month. Hypertension. TECHNIQUE: Computed tomography (CT) of the head was performed without intravenous contrast. The mA wa s adjusted according to patient size. Iterative reconstruction technique was employed. Exam dose: 60 5.33 mGy-cm total exam DLP. COMPARISON: 09/25/2020 CT brain FINDINGS: No intracranial mass lesion or hemorrhage or cerebrovascular accident is detected. No midli ne shift or mass effect effect. There is nonspecific mild diminished attenuation of the cerebral white matter, likely due to chronic small vessel ischemic changes. No subdural or epidural hematoma is detected. The orbital contents are unremarkable. Chronic opacification of right maxillary sinus, right ethmoid air cells and right frontal sinus, unch anged since 09/25/2020. The remaining paranasal sinuses and the mastoid air cells are normally develop ed and aerated. No fracture or bone destruction of the cranial vault. IMPRESSION: Chronic opacification of right frontal, ethmoid and maxillary sinuses No acute intracranial finding Reviewed, dictated and finalized at Location [facility]. Reviewed, dictated and finalized at location A. IMPRESSION: Chronic opacification of right frontal, ethmoid and maxillary sinu ses No acute intracranial finding
[2021-08-22 11:56] VITALS: BP 185/104; PULSE 95; RESP 16; TEMP 36.5; O2SAT 97
[2021-08-22 12:37] VITALS: BP 167/100; O2SAT 92
[2021-08-22 13:01] VITALS: BP 186/100; PULSE 79; RESP 18; O2SAT 94
--- NOTE | 2021-08-22 13:05 | ECG_ITS ---
Measurements Intervals [place] Rate: 74 P: 48 SD: 161 QRS: -18 QRSD: 107 T: 27 QT: 390 QTc: 435 Interpretive Statements SINUS RHYTHM LEFT VENTRICULAR HYPERTROPHY AND ST-T CHANGE BORDERLINE R WAVE PROGRESSION, ANTERIOR LEADS INFERIOR INFARCT, AGE INDETERMINATE BORDERLINE ST-T WAVE ABNORMALITY- ANTEROLATERAL LEADS ABNORMAL ECG Electronically Signed On 08-22-2021 15:26:22 CDT by Renny Dai D.O.
--- NOTE | 2021-08-22 13:25 | ED.RECABL ---
HPI - Recheck/Abnormal Lab/Rx General Chief Complaint: Recheck/Abnormal Lab/Rx <Lisa Nugent PA-C - Last Filed: 08/22/21 16:53> Stated Complaint: HTN <Lisa Nugent PA-C - Last Filed: 08/22/21 16:53> Time Seen by Provider: 08/22/21 12:33 <Lisa Nugent PA-C - Last Filed: 08/22/21 16:53> Source: patient <Lisa Nugent PA-C - Last Filed: 08/22/21 16:53> Mode of arrival: ambulatory <LAZ Kerr Last Filed: 08/22/21 16:53> Limitations: no limitations <Lisa Nugent PA-C - Last Filed: 08/22/21 16:53> History of Present Illness HPI narrative: This is a 51-year-old female that presents to the emergency department for hypertension. Reports she saw her primary doctor a couple of days ago. Her blood pressure was noted to be elevated at that time. She told her to continue to monitor at home. It has continued to be elevated which prompted her to be seen. She has had intermittent headaches associated with this. She has been taking her antihypertensive as prescribed. Denies chest pain, shortness of breath, or lower extremity edema. <Lisa Nugent PA-C - Last Filed: 08/22/21 16:53> Related Data Home Medications: Home Medications Medication Instructions Recorded Confirmed testosterone 50 mg/5 gram (1 %) See Rx Instructions transdermal 03/21/20 12/24/20 transdermal gel DAILY buspirone 15 mg tablet 15 mg PO HS 09/25/20 12/24/20 buspirone 30 mg tablet 30 mg PO BID 09/25/20 12/24/20 cetirizine 10 mg capsule (Zyrtec) 10 mg PO DAILY 09/25/20 12/24/20 clonazepam 0.5 mg tablet 0.5 mg PO QID PRN Anxiety 09/25/20 12/24/20 cyclobenzaprine 10 mg tablet 10 mg PO QID PRN Muscle Spasm 09/25/20 12/24/20 dicyclomine 10 mg capsule 10 mg PO DAILY 09/25/20 12/24/20 fenofibrate 54 mg tablet 54 mg PO DAILY 09/25/20 12/24/20 gabapentin 100 mg capsule 300 mg PO TID 09/25/20 12/24/20 hydrocodone 10 mg-acetaminophen 10 tablet PO Q4H PRN Pain (Scale 09/25/20 12/24/20 325 mg tablet Score 4-6) hydroxyzine HCl 50 mg tablet 50 mg PO HS 09/25/20 12/24/20 levothyroxine 25 mcg tablet 25 mcg PO DAILY 09/25/20 12/24/20 (Euthyrox) meloxicam 7.5 mg tablet 7.5 mg PO DAILY 09/25/20 12/24/20 metformin 1,000 mg tablet 1,000 mg PO BID 09/25/20 12/24/20 omeprazole 40 mg capsule,delayed 40 mg PO DAILY 09/25/20 12/24/20 release propranolol 120 mg capsule,24 120 mg PO HS 09/25/20 12/24/20 hr,extended release ropinirole 1 mg tablet 1 mg PO DAILY PRN Restless Leg(S) 09/25/20 12/24/20 topiramate 50 mg tablet 50 mg PO DAILY 09/25/20 12/24/20 vilazodone 40 mg tablet (Viibryd) 40 mg PO HS 09/25/20 12/24/20 <Lisa Nugent PA-C - Last Filed: 08/22/21 16:53> Allergies/Adverse Reactions: Allergies Allergy/AdvReac Type Severity Reaction Status Date / Time Penicillins Allergy Unknown Rash Verified 12/24/20 12:15 <Lisa Nugent PA-C - Last Filed: 08/22/21 16:53> Review of Systems Review of Systems: CONSTITUTIONAL: Denies fever EYES: Denies visual changes CARDIOVASCULAR: Denies chest pain, or edema. RESPIRATORY: Denies dyspnea. GASTROINTESTINAL: Denies vomiting NEUROLOGIC: Reports headache. Denies numbness, or weakness. <Lisa Nugent PA-C - Last Filed: 08/22/21 16:53> All systems reviewed & are unremarkable except as noted in HPI and below <Lisa Nugent PA-C - Last Filed: 08/22/21 16:53> [facility] Past Medical History Medical History: Medical History (Updated 08/22/21 @ 16:49 by Lisa Nugent PA-C) Acid reflux Anxiety Asthma Disorder of thyroid Fibromyalgia High cholesterol Vaginal delivery x2 <Lisa Nugent PA-C - Last Filed: 08/22/21 16:53> Surgical History Surgical History: Surgical History H/O removal of cyst tailbone H/O tubal ligation History of appendectomy History of colposcopy <Lisa Nugent PA-C - Last Filed: 08/22/21 16:53> Family History Family History:
[2021-08-22 13:29] LABS: Basophils Percent Auto 0.6 % (0.2-1.2); Eosinophils Absolute Auto 0.4 K/mm3 (0-0.3); Eosinophils Percent Auto 5.4 % (0-4.4); Hematocrit 42.3 % (37.0-47.0); Hemoglobin 13.4 g/dL (12.0-15.0); Immature Granulocyte Absolute 0.03 K/mm3 (0.00-0.031); Immature Granulocyte Percent A 0.5 % (0-0.5); Lymphocytes Absolute Auto 3.25 K/mm3 (0.9-3.2); Mean Corpuscular HGB Conc 31.7 g/dl (32-36); Mean Corpuscular Hemoglobin 29.1 pg (26-34); Mean Corpuscular Volume 91.8 fl (80-100); Mean Platelet Volume 10.4 fl (7.4-10.4); Monocytes Absolute Auto 0.7 K/mm3 (0.1-0.6); Neutrophils Absolute Auto 2.2 K/mm3 (1.3-6.7); Neutrophils Percent Auto 33.5 % (45.5-73.1); Platelet Count Result 300 k/mm3 (150-375); Red Blood Count 4.61 M/mm3 (4.2-5.4); White Blood Count 6.6 K/mm3 (4.5-10.0)
[2021-08-22 13:42] LABS: Alanine Aminotransferase 24 U/L (6-35); Albumin Level 4.1 g/dL (3.5-5.1); Alkaline Phosphatase 70 U/L (38-126); Anion Gap 8 mmol/L (8-16); Aspartate Amino Transferase 40 U/L (14-36); Bilirubin,Total 0.3 mg/dL (0.2-1.3); Blood Urea Nitrogen 20 mg/dL (7-17); Calcium 9.5 mg/dL (8.4-10.2); Carbon Dioxide 26 mmol/L (22-30); Chloride 108 mmol/L (98-107); Estimated CRCL calculation 63 ml/min; Estimated Glomerular Filt Rate 47; Glucose 113 mg/dL (65-110); Potassium 4.1 mmol/L (3.4-5.0); Sodium 142 mmol/L (137-145)
[2021-08-22 14:10] VITALS: BP 168/111; PULSE 74; RESP 13; O2SAT 93
[2021-08-22 14:31] VITALS: BP 160/93; PULSE 70; RESP 18; O2SAT 93
[2021-08-22 14:35] LABS: Troponin I < 0.012 ng/mL (0.000-0.034)
--- NOTE | 2021-08-22 15:18 | PC.NURSE ---
Patient resting with eyes closed, equal chest rise and fall noted.
== END 2021-08-22 17:04 | disposition home or self-care (01) ==
PROVIDERS: Physician Assistant; Emergency Provider Emergency Medicine; PCP Nurse Practitioner
DX: I10 Essential (primary) hypertension (principal); J45.909 Unspecified asthma, uncomplicated; E78.00 Pure hypercholesterolemia, unspecified; M79.7 Fibromyalgia; E07.9 Disorder of thyroid, unspecified; K21.9 Gastro-esophageal reflux disease without esophagitis; F41.9 Anxiety disorder, unspecified; Z79.84 Long term (current) use of oral hypoglycemic drugs; R94.31 Abnormal electrocardiogram [ECG] [EKG]; I51.7 Cardiomegaly
CPT/HCPCS: 36415; 70450; 80053; 84484; 85025; 93005; 99284

== ENCOUNTER 2022-01-21 17:19 | Outpatient (CLI) | payer OTHER, SELFPAY ==
--- NOTE | ~2022-01-21 | MM_ITS ---
EXAMINATION: MM screening [facility] BI w ayesha HISTORY: Screening TECHNIQUE: Craniocaudal and mediolateral oblique 3-D tomosynthesis images were obtained and synthetic 2-D images were generated. CAD analysis was submitted and interpreted. COMPARISON: Comparison to multiple prior studies sequentially, with oldest reviewed study dated 08/30. BREAST PARENCHYMAL COMPOSITION: The breasts are almost entirely fatty. FINDINGS: There is no evidence of suspicious mass, calcification, or architectural distortion to sugg est malignancy in either breast. There has been no suspicious interval change. IMPRESSION: 1. No mammographic evidence of malignancy. 2. Recommend routine screening mammography in one year. BI-RADS Category 1: Negative Reviewed, dictated and finalized at location B. [employer]TAIN
== END 2022-01-21 17:20 | disposition home or self-care (01) ==
PROVIDERS: PCP Nurse Practitioner; Visit Provider Student in an Organized Health Care Education/Training Program
DX: Z12.31 Encounter for screening mammogram for malignant neoplasm of breast (principal)
CPT/HCPCS: 77063; 77067

== ENCOUNTER 2023-05-31 09:34 | Outpatient (CLI) | payer OTHER, SELFPAY ==
--- NOTE | ~2023-05-31 | MM_ITS ---
EXAMINATION: MM screening [facility] BI w ayesha HISTORY: Screening mammogram TECHNIQUE: Craniocaudal and mediolateral oblique 3-D tomosynthesis images were obtained and synthetic 2-D images were generated. CAD analysis was submitted and interpreted. COMPARISON: 01/21/2022, 12/27/2020 bilateral screening mammogram examinations BREAST PARENCHYMAL COMPOSITION: The breasts are almost entirely fatty. FINDINGS: There is no evidence of suspicious mass, calcification, or architectural distortion to sugg est malignancy in either breast. There has been no suspicious interval change. IMPRESSION: 1. No mammographic evidence of malignancy. 2. Recommend routine screening mammography in one year. BI-RADS Category 1: Negative Reviewed, dictated and finalized at location A.
== END 2023-05-31 09:35 | disposition home or self-care (01) ==
LOC: ANHIMG 09:36
PROVIDERS: PCP Nurse Practitioner; Visit Provider Registered Nurse
DX: Z12.31 Encounter for screening mammogram for malignant neoplasm of breast (principal)
CPT/HCPCS: 77063; 77067

== ENCOUNTER 2023-08-08 16:54 | Emergency (ER) | payer OTHER, SELFPAY ==
--- NOTE | ~2023-08-08 | CT_ITS ---
EXAMINATION: CT cervical spine wo con DATE: 08/08/2023 18:07 INDICATION: fall, hi TECHNIQUE: Computed tomography (CT) of the cervical spine was performed without intravenous contrast. Automated exposure control and iterative reconstruction technique were employed. The dose-length pro duct was 605.33 mGy-cm. COMPARISON: 09/25/2020. FINDINGS: Vertebral Body Alignment: Intact. Craniocervical and atlantoaxial alignment: Mild degenerative change. Alignment intact. Osseous structures/fracture: No evidence of a lytic or blastic process in the visualized spine. No e vidence of acute fracture. Unfused posterior C1 arch Cervical soft tissues: The paraspinal soft tissues planes are maintained. Degenerative changes: Multilevel degenerative disc disease. Bilateral C5-6 and right-sided C6-7 moder ate-severe neural foraminal narrowing secondary to degenerative disc and uncovertebral joint change. No severe central canal narrowing. IMPRESSION: No acute fracture or traumatic malalignment in the cervical spine. Reviewed, dictated and finalized at location K.
--- NOTE | ~2023-08-08 | XR_ITS ---
EXAM: XR tibia fibula LT 2V DATE: 08/08/2023 17:57 HISTORY: fall, pain . COMPARISON: None available. FINDINGS: Normal mineralization. No fracture or dislocation. No lytic or blastic lesion. Joint space s are maintained. No erosion or periosteal change. Soft tissues within normal limits. IMPRESSION: No acute osseous finding in the left tibia/fibula. Reviewed, dictated and finalized at location K.
--- NOTE | ~2023-08-08 | XR_ITS ---
EXAM: XR ankle RT min 3V, XR foot RT min 3V DATE: 08/08/2023 17:57 HISTORY: fall, pain . COMPARISON: None available. FINDINGS: Normal mineralization. Oblique, minimally displaced fracture of the distal right fibula ex tending to the joint line. No lytic or blastic lesion. Mild lateral widening of the ankle joint space . Achilles and plantar enthesopathy. Small os navicularis. No erosion or periosteal change. Lateral s oft tissue swelling. IMPRESSION: Oblique minimally displaced distal right fibular fracture (Sebastian B fracture). Reviewed, dictated and finalized at location K. IMPRESSION: Oblique minimally displaced distal right fibular fracture (Sebastian B fracture).
--- NOTE | ~2023-08-08 | CT_ITS ---
EXAMINATION: CT brain wo con DATE: 08/08/2023 18:07 INDICATION: fall, hi . TECHNIQUE: Computed tomography (CT) of the head was performed without intravenous contrast. The mA wa s adjusted according to patient size. Iterative reconstruction technique was employed. The dose-lengt h product was 605.33 mGy-cm. COMPARISON: 08/22/2021. FINDINGS: No acute intracranial hemorrhage or extra-axial fluid collection. No hydrocephalus, mass, or herniation. No acute ischemic infarct. Unremarkable dural venous sinus attenuation. No acute osseous abnormality. Right frontal, ethmoid, sphenoid, and maxillary sinus opacification with sclerosis, aerated spaces ar e clear. IMPRESSION: No acute intracranial process. Chronic right frontal, ethmoid, sphenoid, and maxillary sinusitis. Reviewed, dictated and finalized at location K. IMPRESSION: No acute intracranial process. Chronic right frontal, ethmoid, sphenoid, and ma xillary sinusitis.
[2023-08-08 16:56] VITALS: BP 132/81; PULSE 76; RESP 16; TEMP 36.5; O2SAT 97
--- NOTE | 2023-08-08 18:04 | ED.FALL ---
HPI - Fall General Chief Complaint: Fall Stated Complaint: fall Time Seen by Provider: 08/08/23 17:26 Source: patient Mode of arrival: ambulatory Limitations: no limitations History of Present Illness HPI Narrative: patient is a 53-year-old female who presents to the ED with report of a fall. Patient reports she was standing up from her table when her right leg gave out on her causing her to fall. States she felt as though the wind knocked her over. She rolled her right ankle in the fall. Did hit her head. Denied LOC. Denies syncope, prodromal symptoms prior to the fall. denies dizziness, lightheadedness, vision changes. Denies chest pain, shortness of breath, palpitations. complains of pain to her right ankle, left posterior calf. Related Data Home Medications Medication Instructions Recorded Confirmed fenofibrate 54 mg tablet 54 mg PO DAILY 09/25/20 12/24/20 gabapentin 100 mg capsule 300 mg PO TID 09/25/20 12/24/20 hydrocodone 10 mg-acetaminophen 10 tablet PO Q4H PRN Pain (Scale 09/25/20 12/24/20 325 mg tablet Score 4-6) hydroxyzine HCl 50 mg tablet 50 mg PO HS 09/25/20 12/24/20 levothyroxine 25 mcg tablet 25 mcg PO DAILY 09/25/20 12/24/20 (Euthyrox) meloxicam 7.5 mg tablet 7.5 mg PO DAILY 09/25/20 12/24/20 metformin 1,000 mg tablet 1,000 mg PO BID 09/25/20 12/24/20 omeprazole 40 mg capsule,delayed 40 mg PO DAILY 09/25/20 12/24/20 release propranolol 120 mg capsule,24 120 mg PO HS 09/25/20 12/24/20 hr,extended release topiramate 50 mg tablet 50 mg PO DAILY 09/25/20 12/24/20 vilazodone 40 mg tablet (Viibryd) 40 mg PO HS 09/25/20 12/24/20 amlodipine 10 mg tablet 10 mg PO DAILY 01/07/22 metoclopramide HCl 10 mg tablet 10 mg PO Q6H PRN 01/07/22 ropinirole 1 mg tablet 2 mg PO DAILY PRN Restless Leg(S) 01/07/22 buspirone 30 mg tablet 30 mg PO TID 01/11/23 Allergies Allergy/AdvReac Type Severity Reaction Status Date / Time Penicillins Allergy Unknown Rash Verified 08/08/23 17:17 Review of Systems Review of Systems: CONSTITUTIONAL: Denies fever, chills, or sweats. CARDIOVASCULAR: Denies chest pain, palpitations, or edema. RESPIRATORY: Denies dyspnea. MUSCULOSKELETAL: See HPI. NEUROLOGIC: See HPI. All systems reviewed & are unremarkable except as noted in HPI and below PMFSH Past Medical History Medical History Acid reflux Anxiety Asthma Disorder of thyroid Fibromyalgia High cholesterol Vaginal delivery x2 Surgical History Surgical History H/O removal of cyst tailbone H/O tubal ligation History of appendectomy History of colposcopy Family History Family History Mother Diabetes mellitus Hypertension Hyperlipidemia Father Hyperlipidemia Hypertension Social History Social History Smoking status: Never smoker Alcohol intake: never Substance use: current Substance use type: does not use Lack of Transportation: No Lack of Food: Never True Current Housing: I Have Housing Concerned About Future Housing: No Difficulty Paying Gas/Electric Bills: No Difficulty Paying for Meds: No Currently Unemployed: No Education: High School Diploma/GED Difficulty w/ Childcare or Family Care: No Spiritual care concerns: No Exam Narrative: GENERAL: Well appearing, morbidly obese with BMI of 40.2, non-toxic, in no acute distress. HEAD: Normocephalic, atraumatic. RESPIRATORY: Airway patent, respirations nonlabored. Clear to auscultation bilaterally, no rales, rhonchi, wheezing. CARDIOVASCULAR: Regular rate and rhythm without murmurs, rubs, or gallops. pedal pulses intact. MUSCULOSKELETAL: Moves all extremities. No gross deformities. No midline cervical, thoracic, lumbar spinal tenderness. No palpable bony deformities.
[2023-08-08] MEDS: HYDROcodone/acetaminophen (*CRX) 5-325 MG TABLET 1 TAB PO (18:48)
--- NOTE | 2023-08-09 15:21 | PCCARD ---
EKG ORDERED 08/08/23 @1747 WAS CHARTED BEING DONE AND SHOWN TO ER DOCTOR. NO EKG TRACING WAS SCANNED INTO ECHART AND EKG NOT ON MACHINES IN THE ED. ALSO, WAS NOT TRANSMITTED INTO THE EKG SYSTEM. I HAVE NO CHOICE BUT TO CANCEL EKG 'NOT DONE'.
--- NOTE | 2023-08-17 20:06 | PC.NURSE ---
Late Entry Note: Pt had a short leg posterior fiber glass splint applied to the right leg on 08/08/23 around 5.
== END 2023-08-08 19:34 | disposition home or self-care (01) ==
PROVIDERS: Emergency Provider Physician Assistant; PCP Nurse Practitioner
DX: S82.831A Other fracture of upper and lower end of right fibula, initial encounter for closed fracture (principal); S09.90XA Unspecified injury of head, initial encounter; W19.XXXA Unspecified fall, initial encounter
CPT/HCPCS: 29515; 70450; 72125; 73590; 73610; 73630; 99284; A9270

== ENCOUNTER 2023-08-12 01:26 | Day surgery (SDC) | payer OTHER, SELFPAY ==
[2023-08-10 10:57] VITALS: BMI 41.2
--- NOTE | 2023-08-10 11:03 | PC.NURSE ---
Report to the Outpatient Waiting Room, entrance under the green pavilion located off [facility], at time _0600_ on date _[id number]_. Planned Procedure Time: _0730_. Time changes happen often and if your time is changed the preop area will call you the afternoon before. - You and your visitor will be asked to self-screen and do not enter if you have any COVID symptoms. - A mask is optional within the hospital at this time. Patients may have clear liquids (water, carbonated beverages, clear teas, apple juice) until 3 hours prior to surgery with a maximum of 20 ounces. - No food from midnight until time of surgery Take the following medications with a SIP of water the morning of surgery: ___Amlodipine, Aripiprazole, Buspirone, Flonase, Levothyroxine and topiramate. DO NOT STOP ANY OF YOUR OTHER PRESCRIPTION MEDICATIONS PRIOR TO SURGERY ?EXCEPT THE FOLLOWING Medications to discontinue per physician ____All vitamins and supplements Date to take last dose____Stop now. Please no make-up, nail french, hairspray, perfume, deodorant, or body powder the day of surgery. No jewelry (including any body piercings) or valuables the day of surgery, leave them at home. Please take a shower or bath the night before, or the morning of, surgery with an antibacterial soap. Wear comfortable, loose fitting clothing. - Jewelry must be removed prior to entering the operating room. Rings and piercings that are not removed may be cut off. - The hospital will not accept responsibility for valuables. - Please leave all valuables, including medications, at home the day of surgery. If you are going home after surgery, a licensed industrial truck driver must drive you home. - NO public transportation without another adult if you receive anesthesia. - We recommend that an adult stay with you for 24 hours following discharge. - We also recommend that you do not drive, make important decision, drink alcoholic beverages, or take any drugs that were not prescribed by your health care provider for at least 24 hours after your discharge time. Follow any additional instructions given to you from your surgeon. If you or anyone in your household have experienced Covid symptoms in the past week, please notify your surgeon or the nurse liaison at the phone number below for possible testing. Telephone instructions given to __Robert/husband____and asked if any additional questions and then verbalized understanding. Patient advised to call surgeon office or pre surgery nurse liaison [phone] if any additional questions.
[2023-08-12] VITALS (18 sets, daily range): BP systolic 79–115; BP diastolic 52–73; PULSE 65–79; RESP 12–20; TEMP 35.8–36.1; O2SAT 90–97
--- NOTE | ~2023-08-12 | XR_ITS ---
EXAMINATION: XR surgery orthopedic DATE: 08/16/2023 08:23 INDICATION: ORIF right ankle fracture TECHNIQUE: 5 fluoroscopic images of the right ankle were obtained during procedure performed by Dr. Nathaly evans. Radiologist was not present for the imaging or procedure. The amount of fluoroscopy time use d during this procedure was 0.6 minutes. COMPARISON: None. FINDINGS: Interval open reduction internal fixation of an oblique fracture of the lateral malleolus with interf ragmentary screw and lateral plate and screws. Alignment post fixation appears near-anatomic. No othe r fractures identified. Joint spaces are normal. IMPRESSION: 1. Near-anatomic alignment post internal fixation of a lateral malleolar fracture, negative for posto perative purposes. Reviewed, dictated and finalized at location A. IMPRESSION: 1. Near-anatomic alignment post internal fixation of a lateral malleolar fractu re, negative for postoperative purposes.
--- NOTE | 2023-08-12 05:56 | ECG_ITS ---
Test Date: 2023-08-12 06:56:19 Measurements Intervals Pound Rate: 74 P: 40 WA: 178 QRS: -18 QRSD: 98 T: 7 QT: 400 QTc: 444 Interpretive Statements SINUS RHYTHM LEFT VENTRICULAR HYPERTROPHY AND ST-T CHANGE BORDERLINE R WAVE PROGRESSION, ANTERIOR LEADS INFERIOR INFARCT, AGE INDETERMINATE BORDERLINE ST-T WAVE ABNORMALITY- ANTEROLATERAL LEADS ABNORMAL ECG No previous ECG available for comparison Electronically Signed On 08-12-2023 07:28:52 CDT by Renny Dai D.O.
--- NOTE | 2023-08-12 06:40 | WPDHPUPDATE1 ---
History and Physical Update Update Date/Time: 08/12/23 06:40 History and Physical has been reviewed, including an updated exam of the patient. There are NO changes in the patient's condition. Risks, benefits, and alternatives have been discussed and questions answered. Patient agrees to proceed with procedure. Plan is Open Reduction, Internal Fixation of her Right ankle. Discussed and reemphasized Obesity with wound problems and Non weight bearing with compliance.
--- NOTE | 2023-08-12 06:41 | PM.IMHP ---
H&P: HPI History of Present Illness Date/Time: 08/12/23 06:41 Chief Complaint: Bimalleolar Ankle Fracture RIGHT Review of Systems Musculoskeletal: Musculoskeletal: Reports arthralgias, Reports joint swelling and Reports stiffness [facility] Past Medical History Medical History Acid reflux Anxiety Asthma Disorder of thyroid Fibromyalgia High cholesterol Vaginal delivery x2 Surgical History Surgical History H/O removal of cyst tailbone H/O tubal ligation History of appendectomy History of colposcopy Family History Family History Mother Diabetes mellitus Hypertension Hyperlipidemia Father Hyperlipidemia Hypertension Social History Social History (Updated 08/09/23 @ 13:53 by Yudy Sow CMA) Smoking status: Never smoker Alcohol intake: never Substance use: current Substance use type: does not use Do You Feel Safe in your Home?: Yes Lack of Transportation: No Lack of Food: Never True Current Housing: I Have Housing Concerned About Future Housing: No Difficulty Paying Gas/Electric Bills: No Difficulty Paying for Meds: No Currently Unemployed: No Education: High School Diploma/GED Difficulty w/ Childcare or Family Care: No Living arrangements: with family Occupation/Education: unemployed Additional occupation/education comments: disabled Gender identity (if verbalized by the patient): Female Spiritual care concerns: No Meds Home Medications and Allergies Home Medications Medication Instructions Recorded Confirmed Type fenofibrate 54 mg tablet 54 mg PO DAILY 09/25/20 08/10/23 History hydroxyzine HCl 50 mg tablet 50 mg PO HS 09/25/20 08/10/23 History levothyroxine 25 mcg tablet 25 mcg PO DAILY 09/25/20 08/10/23 History (Euthyrox) metformin 1,000 mg tablet 1,000 mg PO BID 09/25/20 08/10/23 History omeprazole 40 mg capsule,delayed 40 mg PO DAILY 09/25/20 08/10/23 History release propranolol 120 mg capsule,24 120 mg PO HS 09/25/20 08/10/23 History hr,extended release topiramate 50 mg tablet 50 mg PO DAILY 09/25/20 08/10/23 History vilazodone 40 mg tablet (Viibryd) 40 mg PO HS 09/25/20 08/10/23 History losartan 100 mg tablet 100 mg PO DAILY 1 week #7 tabs 08/22/21 08/10/23 Rx amlodipine 10 mg tablet 10 mg PO DAILY 01/07/22 08/10/23 History metoclopramide HCl 10 mg tablet 10 mg PO Q6H PRN Abdominal Pain 01/07/22 08/10/23 History ropinirole 1 mg tablet 2 mg PO DAILY PRN Restless Leg(S) 01/07/22 08/10/23 History buspirone 30 mg tablet 30 mg PO TID 01/11/23 08/10/23 History nystatin 100,000 unit/gram topical 1 applic topical DAILY #30 grams 01/13/23 08/10/23 Rx powder nystatin 100,000 unit/gram topical 1 applic topical BID #30 grams 08/04/23 08/10/23 Rx cream hydrocodone 5 mg-acetaminophen 325 1 tablet PO Q6H PRN pain #15 tabs 08/08/23 08/10/23 Rx mg tablet albuterol sulfate 90 mcg/actuation 1 inh inhalation Q4H PRN Dyspnea 08/09/23 08/10/23 History aerosol inhaler aripiprazole 5 mg tablet 5 mg PO DAILY 08/09/23 08/10/23 History aspirin 81 mg tablet,delayed 81 mg PO DAILY 08/09/23 08/10/23 History release cyclobenzaprine 10 mg tablet 10 mg PO TID PRN Spasms 08/09/23 08/10/23 History dicyclomine 10 mg capsule 10 mg PO TID 08/09/23 08/10/23 History fluticasone propionate 50 1 spray intranasal DAILY 08/09/23 08/10/23 History mcg/actuation nasal spray,suspension (Flonase Allergy Relief) pregabalin 100 mg capsule 100 mg PO TID 08/09/23 08/10/23 History trazodone 50 mg tablet 50 mg PO QHS PRN Insomnia 08/09/23 08/10/23 History ascorbic acid (vitamin C) 500 mg 500 mg PO DAILY 08/10/23 08/10/23 History tablet (Vitamin C) cholecalciferol (vitamin D3) 25 25 mcg PO DAILY 07/03/24 07/03/24 History mcg (1,000 unit) capsule (Vitamin D3) magnesium 250 mg tablet 250 mg
[2023-08-12] MEDS: ACETAMINOPHEN 500 MG TABLET 1000 MG PO (06:45)
[2023-08-12] MEDS: LACTATED RINGERS 1,000 ML 30 ML IV CONT ×2 (06:50→08:56)
[2023-08-12] MEDS: KETOROLAC 15 MG/ML VIAL (*BKC) IV PUSH (06:52)
[2023-08-12 06:55] LABS: Glucose Point of Care 137 mg/dl (65-105)
--- NOTE | 2023-08-12 07:12 | WPDANESEPPF ---
Anes - Initial Pre Proc Eval Procedure: Operation Date: 08/12/23 07:30 Proposed Procedures p Open Reduction Internal Fixation Right Ankle Fracture - Sudeep Calvin MD Date/Time: 08/12/23 07:12 Surgeon: Sudeep Calvin MD Pre Op Diagnosis: bimalleolar right ankle fracture Patient Data Age: 53 Gender: F Height: 1.68 m Weight: 116.2 kg Last Vital Signs Temp 36.1 C L 08/12/23 06:36 Pulse 79 08/12/23 06:36 Resp 18 08/12/23 06:36 BP 115/73 08/12/23 06:36 Pulse Ox 96 08/12/23 06:36 O2 Del Method Room Air 08/12/23 06:36 Allergies Allergy/AdvReac Type Severity Reaction Status Date / Time Penicillins Allergy Unknown Rash Verified 08/12/23 06:59 Home Medications Medication Instructions Recorded Confirmed Type fenofibrate 54 mg tablet 54 mg PO DAILY 09/25/20 08/12/23 History hydroxyzine HCl 50 mg tablet 50 mg PO HS 09/25/20 08/12/23 History levothyroxine 25 mcg tablet 25 mcg PO DAILY 09/25/20 08/12/23 History (Euthyrox) metformin 1,000 mg tablet 1,000 mg PO BID 09/25/20 08/12/23 History omeprazole 40 mg capsule,delayed 40 mg PO DAILY 09/25/20 08/12/23 History release propranolol 120 mg capsule,24 120 mg PO HS 09/25/20 08/12/23 History hr,extended release topiramate 50 mg tablet 50 mg PO DAILY 09/25/20 08/12/23 History vilazodone 40 mg tablet (Viibryd) 40 mg PO HS 09/25/20 08/12/23 History losartan 100 mg tablet 100 mg PO DAILY 1 week #7 tabs 08/22/21 08/12/23 Rx amlodipine 10 mg tablet 10 mg PO DAILY 01/07/22 08/12/23 History metoclopramide HCl 10 mg tablet 10 mg PO Q6H PRN Abdominal Pain 01/07/22 08/12/23 History ropinirole 1 mg tablet 2 mg PO DAILY PRN Restless Leg(S) 01/07/22 08/12/23 History buspirone 30 mg tablet 30 mg PO TID 01/11/23 08/12/23 History nystatin 100,000 unit/gram topical 1 applic topical DAILY #30 grams 01/13/23 08/12/23 Rx powder nystatin 100,000 unit/gram topical 1 applic topical BID #30 grams 08/04/23 08/12/23 Rx cream hydrocodone 5 mg-acetaminophen 325 1 tablet PO Q6H PRN pain #15 tabs 08/08/23 08/12/23 Rx mg tablet albuterol sulfate 90 mcg/actuation 1 inh inhalation Q4H PRN Dyspnea 08/09/23 08/12/23 History aerosol inhaler aripiprazole 5 mg tablet 5 mg PO DAILY 08/09/23 08/12/23 History aspirin 81 mg tablet,delayed 81 mg PO DAILY 08/09/23 08/12/23 History release cyclobenzaprine 10 mg tablet 10 mg PO TID PRN Spasms 08/09/23 08/12/23 History dicyclomine 10 mg capsule 10 mg PO TID 08/09/23 08/12/23 History fluticasone propionate 50 1 spray intranasal DAILY 08/09/23 08/12/23 History mcg/actuation nasal spray,suspension (Flonase Allergy Relief) pregabalin 100 mg capsule 100 mg PO TID 08/09/23 08/12/23 History trazodone 50 mg tablet 50 mg PO QHS PRN Insomnia 08/09/23 08/12/23 History ascorbic acid (vitamin C) 500 mg 500 mg PO DAILY 08/10/23 08/12/23 History tablet (Vitamin C) cholecalciferol (vitamin D3) 25 25 mcg PO DAILY 08/10/23 08/12/23 History mcg (1,000 unit) capsule (Vitamin D3) magnesium 250 mg tablet 250 mg PO DAILY 08/10/23 08/12/23 History melatonin 10 mg tablet 10 mg PO HS PRN Insomnia 08/10/23 08/12/23 History multivitamin 1 tablet PO DAILY 08/10/23 08/12/23 History vitamin B complex 1 tablet PO DAILY 08/10/23 08/12/23 History Laboratory Tests 08/12/23 08/12/23 06:50 06:53 Sodium Pending Potassium Pending Chloride Pending Carbon Dioxide Pending Anion Gap Pending BUN Pending Creatinine Pending Estim Creat Clear Calc Pending Estimated GFR Pending Glucose Pending POC Capillary Glucose 137 H mg/dl (65-105) Calcium Pending Patient hx anesthesia problems: none Family hx anesthesia problems: none Results Review: All pre-operative results and documents have been reviewed as part of the pre-operative evaluation. FOR[facility], [facility] Past Medical History Medical History (Reviewed 08/12/23 @ 07:12 by
[2023-08-12 07:24] LABS: Anion Gap 12 mmol/L (4-12); Blood Urea Nitrogen 27 mg/dL (7-17); Calcium 9.5 mg/dL (8.4-10.2); Carbon Dioxide 18 mmol/L (22-30); Chloride 113 mmol/L (98-107); Estimated CRCL calculation 57 ml/min; Estimated Glomerular Filt Rate 43; Glucose 140 mg/dL (65-110); Potassium 4.4 mmol/L (3.4-5.0); Sodium 143 mmol/L (137-145)
[2023-08-12] MEDS: ceFAZolin 2 GM/D5W 50 ML 2 GM/50 ML BAG IVPB (07:30)
--- NOTE | 2023-08-12 08:21 | W.PM.PROC2 ---
Procedure Note - Detailed Date of Procedure 08/12/23 Pre-op Diagnosis Bimalleolar right ankle fracture Post-op Diagnosis Same Procedure Performed Open reduction internal fixation right ankle Surgeon Sudeep Calvin MD Anesthesia General Findings Ankle Fracture RIGHT Description of Procedure Patient brought to operating room 8. A general anesthetic was administered. She was sterilely prepped and draped fracture table. A longitudinal incision made over the lateral malleolus. Dissection carried down to the bone. The fracture was identified. The fracture was reduced and held with a lobster claw. A 6 hole plate was placed with an interfragmentary screw. This gave excellent alignment and fixation of the fracture. At this point the ankle did not open medially hence I did not repair the medial side. The wound irrigated and closed 2-0 Vicryl and palma a sterile dressing and splint were applied. Patient tolerated procedure well left the operating room satisfactory condition. The patient was placed in a cam walker boot for further fixation. Implants Synthesis Estimated Blood Loss 50 Packing No Complications No immediate complications Condition Stable Disposition PACU [facility] Billing Surgery - Charge Forward: Surgery Billing ([place] [id number]. Fixation lateral malleoulus)
[2023-08-12 08:51] LABS: Glucose Point of Care 135 mg/dl (65-105)
== END 2023-08-12 12:20 | disposition home or self-care (01) ==
PROVIDERS: Anesthesiology; PCP Nurse Practitioner; Visit Provider Orthopaedic Surgery
PROC: (CPT 27814; principal; 2023-08-12 07:30)
DX: S82.841A Displaced bimalleolar fracture of right lower leg, initial encounter for closed fracture (principal); K21.9 Gastro-esophageal reflux disease without esophagitis; F41.9 Anxiety disorder, unspecified; J45.909 Unspecified asthma, uncomplicated; E78.00 Pure hypercholesterolemia, unspecified; E66.01 Morbid (severe) obesity due to excess calories; Z68.41 Body mass index [BMI] 40.0-44.9, adult; Z79.84 Long term (current) use of oral hypoglycemic drugs; Z79.891 Long term (current) use of opiate analgesic; Z79.51 Long term (current) use of inhaled steroids; Z79.82 Long term (current) use of aspirin; Z98.890 Other specified postprocedural states; Z98.51 Tubal ligation status; X58.XXXA Exposure to other specified factors, initial encounter
CPT/HCPCS: 27814; 36415; 80048; 82948; 93005; 99199; A9270; C1713; J0690; J1885; J2250; J2270; J2371; J2704; J7120; L2116

== ENCOUNTER 2023-10-12 16:10 | Inpatient (IN) | payer OTHER, SELFPAY ==
--- NOTE | ~2023-10-12 | XR_ITS ---
EXAMINATION: XR foot RT 2V DATE: 10/12/2023 20:35 INDICATION: Right foot infection and swelling. TECHNIQUE: 2 views of right foot were obtained. COMPARISON: Right foot radiographs 08/08/2023 FINDINGS: Alignment is normal. There is plate and screw fixation of distal fibula. No acute fracture. There is mild osteoarthritis of first metatarsophalangeal joint and some of the midfoot joints. Ther e are enthesophytes at the posterior and plantar aspects of calcaneal tuberosity. IMPRESSION: 1. Mild polyarticular osteoarthritis. Reviewed, dictated and finalized at location A.
--- NOTE | ~2023-10-12 | CT_ITS ---
EXAMINATION: CTA chest PE protocol DATE: 10/12/2023 21:47 INDICATION: Elevated d-dimer. Lower extremity swelling. TECHNIQUE: Computed tomography angiography (CTA) of the chest was performed with 100 mL Omnipaque-350 intravenous contrast timed to evaluate the pulmonary arteries. Coronal maximum intensity projection 3D-reconstructions were created by the technologist. Automated exposure control and iterative reconst ruction technique were employed. The dose-length product was 763.26 mGy-cm. COMPARISON: None. FINDINGS: The lung volumes are small. The lungs demonstrate mild atelectasis. No pleural effusion. Th e heart size is normal. No pericardial effusion. There is no pulmonary embolus. There is a gallstone in the gallbladder, which is normal in size. There is mild thoracic spondylosis. IMPRESSION: 1. No pulmonary embolus. Reviewed, dictated and finalized at location A. IMPRESSION: 1. No pulmonary embolus.
--- NOTE | ~2023-10-12 | US_ITS ---
EXAMINATION: US venous doppler LE RT DATE: 10/12/2023 21:05 INDICATION: Right lower limb swelling. TECHNIQUE: Grayscale ultrasound images without and with compression and Doppler ultrasound images of the right lower extremity veins were obtained. COMPARISON: None. FINDINGS: The visualized portions of right common femoral vein, profunda (deep) femoral vein, femoral vein, pop liteal vein, peroneal veins, posterior tibial veins, and greater saphenous vein outflow are patent. IMPRESSION: 1. No deep venous thrombosis. Reviewed, dictated and finalized at location A.
[2023-10-12 16:23] VITALS: BP 142/99; PULSE 92; RESP 18; TEMP 36.8; O2SAT 98
--- NOTE | 2023-10-12 20:04 | ED.GENADULT ---
HPI - General Adult General Chief complaint: Skin/Abscess/Foreign Body Stated complaint: r ankle incision infection? Time Seen by Provider: 10/12/23 18:28 Source: patient and family Mode of arrival: wheelchair Limitations: physical limitation History of Present Illness HPI narrative: Pt is a 53-year-old female who presents to the ER with concerns for infection in her R lower extremity. She reports she broke her R ankle on August 07 and had surgery to repair it on August 11. Her reports they placed a plate and seven screws in her R foot. Pt reports this morning she woke up and her sheets were covered in blood. She reports her RLE is swollen, red, and oozing. Pt reports she has kept it covered with a bandaid all day. She reports she had the surgery done at this hospital and called her surgeon, who advised her to come into the ER. Pt denies shortness of breath, chest pain, numbness/tingling in her extremities. She reports she has just started learning how to walk again. Related Data Home Medications Medication Instructions Recorded Confirmed fenofibrate 54 mg tablet 54 mg PO DAILY 09/25/20 10/13/23 hydroxyzine HCl 50 mg tablet 50 mg PO BID PRN Anxiety 09/25/20 10/13/23 levothyroxine 25 mcg tablet 25 mcg PO DAILY 09/25/20 10/13/23 (Euthyrox) metformin 1,000 mg tablet 1,000 mg PO BID 09/25/20 10/13/23 omeprazole 40 mg capsule,delayed 40 mg PO DAILY 09/25/20 10/13/23 release propranolol 120 mg capsule,24 120 mg PO DAILY 09/25/20 10/13/23 hr,extended release topiramate 50 mg tablet 100 mg PO BID 09/25/20 10/13/23 vilazodone 40 mg tablet (Viibryd) 40 mg PO HS 09/25/20 10/13/23 amlodipine 10 mg tablet 10 mg PO DAILY 01/07/22 10/13/23 metoclopramide HCl 10 mg tablet 10 mg PO BID 01/07/22 10/13/23 ropinirole 1 mg tablet 4 mg PO DAILY 01/07/22 10/13/23 buspirone 30 mg tablet 30 mg PO TID 01/11/23 10/13/23 albuterol sulfate 90 mcg/actuation 1 inh inhalation Q4H PRN Dyspnea 08/09/23 10/13/23 aerosol inhaler aripiprazole 5 mg tablet 5 mg PO DAILY 08/09/23 10/13/23 aspirin 81 mg tablet,delayed 81 mg PO DAILY 08/09/23 10/13/23 release dicyclomine 10 mg capsule 10 mg PO TID 08/09/23 10/13/23 fluticasone propionate 50 1 spray intranasal DAILY 08/09/23 10/13/23 mcg/actuation nasal spray,suspension (Flonase Allergy Relief) pregabalin 100 mg capsule 100 mg PO TID 08/09/23 10/13/23 trazodone 50 mg tablet 50 mg PO QHS PRN Insomnia 08/09/23 10/13/23 ascorbic acid (vitamin C) 500 mg 500 mg PO DAILY 08/10/23 10/13/23 tablet (Vitamin C) cholecalciferol (vitamin D3) 25 25 mcg PO DAILY 08/10/23 10/13/23 mcg (1,000 unit) capsule (Vitamin D3) magnesium 250 mg tablet 250 mg PO DAILY 08/10/23 10/13/23 multivitamin 1 tablet PO DAILY 08/10/23 10/13/23 vitamin B complex 1 tablet PO DAILY 08/10/23 10/13/23 biotin 1,000 mcg chewable tablet 1,000 mcg PO DAILY 10/13/23 10/13/23 Allergies Allergy/AdvReac Type Severity Reaction Status Date / Time Penicillins Allergy Unknown Rash Verified 09/27/23 11:12 Review of Systems Review of Systems: All systems reviewed & are unremarkable except as noted in HPI and below PMFSH Past Medical History Medical History Acid reflux Anxiety Asthma Disorder of thyroid Fibromyalgia High cholesterol Vaginal delivery x2 Surgical History Surgical History H/O removal of cyst tailbone H/O tubal ligation History of appendectomy History of colposcopy Family History Family History Mother Diabetes mellitus Hypertension Hyperlipidemia Father Hyperlipidemia Hypertension ALS (amyotrophic lateral sclerosis) Sibling , MVC No problems noted. Sibling No problems noted. Social History Social History (Updated 10/13/23 @ 14:21 by Maryana Ferrera, [employer]) Social History: Patient live
[2023-10-12] MEDS: SODIUM CHLORIDE 0.9% IV 1,000 ML 999 ML IV CONT (20:17)
[2023-10-12] MEDS: HYDROcodone/acetaminophen (*CRX) 5-325 MG TABLET 1 TAB PO (20:18)
[2023-10-12 20:21] LABS: Basophils Absolute Auto 0.1 K/mm3 (0.0-0.1); Basophils Percent Auto 0.6 % (0.2-1.2); Eosinophils Absolute Auto 0.3 K/mm3 (0-0.3); Eosinophils Percent Auto 2.2 % (0-4.4); Hematocrit 41.8 % (37.0-47.0); Hemoglobin 13.8 g/dL (12.0-15.0); Immature Granulocyte Absolute 0.03 K/mm3 (0.00-0.031); Immature Granulocyte Percent A 0.2 % (0-0.5); Lymphocytes Percent Auto 29.2 % (18.3-44.2); Mean Corpuscular Hemoglobin 29.6 pg (26-34); Mean Corpuscular Volume 89.5 fl (80-100); Mean Platelet Volume 11.2 fl (7.4-10.4); Monocytes Percent Auto 7.6 % (2.6-8.5); Neutrophils Absolute Auto 7.7 K/mm3 (1.3-6.7); Neutrophils Percent Auto 60.2 % (45.5-73.1); Platelet Count Result 374 k/mm3 (150-375); Red Blood Count 4.67 M/mm3 (4.2-5.4); Red Cell Distribution Width 13.4 % (11.5-14.5); White Blood Count 12.7 K/mm3 (4.5-10.0)
[2023-10-12 20:29] LABS: Lactic Acid Reflex 1.2 mmol/L (0.7-2.0); Prothrombin Time 13.9 Seconds (11.1-14.7)
[2023-10-12 20:30] LABS: Partial Thromboplastin Time 30.4 Seconds (22.3-36.8)
[2023-10-12 20:32] LABS: Alanine Aminotransferase 15 U/L (6-35); Albumin Level 4.3 g/dL (3.5-5.1); Alkaline Phosphatase 98 U/L (38-126); Anion Gap 12 mmol/L (4-12); Aspartate Amino Transferase 31 U/L (14-36); Bilirubin,Total 0.6 mg/dL (0.2-1.3); Blood Urea Nitrogen 20 mg/dL (7-17); CRP 7.3 mg/dL (<1.0); Calcium 9.7 mg/dL (8.4-10.2); Carbon Dioxide 24 mmol/L (22-30); Chloride 104 mmol/L (98-107); Estimated CRCL calculation 72 ml/min; Estimated Glomerular Filt Rate 58; Glucose 125 mg/dL (65-110); Potassium 3.8 mmol/L (3.4-5.0); Sodium 140 mmol/L (137-145)
[2023-10-12 20:33] LABS: D Dimer 0.72 ug/mL (<0.48)
[2023-10-12 21:12] VITALS: BP 153/109; PULSE 84; RESP 14; TEMP 36.6; O2SAT 91
[2023-10-12 23:00] VITALS: BP 148/70; PULSE 87; RESP 16; TEMP 36.6; O2SAT 95; O2SAT 96
[2023-10-12] MEDS: VANCOMYCIN 1,500 MG/NS 500 ML 1,500 MG/500 ML BAG 250 MG IVPB (23:06)
[2023-10-13 00:53] VITALS: BP 142/89; PULSE 90; RESP 16; TEMP 36.6; O2SAT 93
[2023-10-13 00:54] LABS: Estimated CRCL calculation 66 ml/min; Estimated Glomerular Filt Rate 52
[2023-10-13 02:30] VITALS: BMI 40.3
--- NOTE | 2023-10-13 02:30 | ADMGEN ---
This patient, Amrita Hartman, was admitted to Medical Room 259-01. Patient/family oriented to hospital policies and general routines including ID bracelet, bed and alarms, visiting hours, pain management, procedures, bathroom and other care routines, personal items, smoking policy, room service/diet, and visiting hours. Information on how to activate the Rapid Response Team has been discussed. Patient/Family are encouraged to report perceived risks to care and to ask questions if they do not understand what they are told or what they should do.
--- NOTE | 2023-10-13 02:57 | PC.NURSE ---
PT DOES NOT KNOW HOME MEDICATIONS AND UNABLE TO GET TO ANSWER HIS PHONE, WILL CONTINUE TO ATTEMPT TO GET AHOLD OF
[2023-10-13] MEDS: HYDROcodone/acetaminophen (*CRX) 5-325 MG TABLET 1 TAB PO ×3 (03:40→16:28)
[2023-10-13 04:57] VITALS: BP 147/95; PULSE 85; RESP 20; TEMP 35.9; O2SAT 96
--- NOTE | 2023-10-13 06:57 | PM.CNOR ---
Assessment and Plan Assessment and plan (1) History of ankle surgery: Code(s): Z98.890 - Other specified postprocedural states Status: Acute Assessment and Plan: Patient prevents with presents with cellulitis of the right ankle small bit of drainage from the wound. This happened over the last several days. She did not call for some reason until yesterday afternoon. She went to the emergency room was admitted. She is getting antibiotics at this time. I think it is reasonable chance she will need surgical debridement if this does not settle down. Will try antibiotics and elevation first. (2) Infected surgical wound: Code(s): T81.49XA - Infection following a procedure, other surgical site, initial encounter Status: Acute History of Present Illness HPI Consult date: 10/13/23 Chief complaint: Cellulitis RLE Review of Systems Review of Systems: All systems reviewed & are unremarkable except as noted in HPI and below PMFSH Past Medical History Medical History Acid reflux Anxiety Asthma Disorder of thyroid Fibromyalgia High cholesterol Vaginal delivery x2 Surgical History Surgical History H/O removal of cyst tailbone H/O tubal ligation History of appendectomy History of colposcopy Family History Family History Mother Diabetes mellitus Hypertension Hyperlipidemia Father Hyperlipidemia Hypertension ALS (amyotrophic lateral sclerosis) Sibling , MVC No problems noted. Sibling No problems noted. Social History Social History Smoking status: Never smoker Second hand tobacco smoke exposure: Yes Alcohol intake: never Substance use: never Substance use type: does not use Do You Feel Safe in your Home?: Yes Lack of Transportation: No Lack of Food: Never True Current Housing: I Have Housing Concerned About Future Housing: No Difficulty Paying Gas/Electric Bills: YES Difficulty Paying for Meds: No Currently Unemployed: No Education: High School Diploma/GED Difficulty w/ Childcare or Family Care: No Living arrangements: with family Occupation/Education: unemployed Additional occupation/education comments: disabled Gender identity (if verbalized by the patient): Female Spiritual care concerns: No Meds Home Medications and Allergies Home Medications Medication Instructions Recorded Confirmed Type fenofibrate 54 mg tablet 54 mg PO DAILY 09/25/20 09/27/23 History hydroxyzine HCl 50 mg tablet 50 mg PO HS 09/25/20 09/27/23 History levothyroxine 25 mcg tablet 25 mcg PO DAILY 09/25/20 09/27/23 History (Euthyrox) metformin 1,000 mg tablet 1,000 mg PO BID 09/25/20 09/27/23 History omeprazole 40 mg capsule,delayed 40 mg PO DAILY 09/25/20 09/27/23 History release propranolol 120 mg capsule,24 120 mg PO HS 09/25/20 09/27/23 History hr,extended release topiramate 50 mg tablet 50 mg PO DAILY 09/25/20 09/27/23 History vilazodone 40 mg tablet (Viibryd) 40 mg PO HS 09/25/20 09/27/23 History losartan 100 mg tablet 100 mg PO DAILY 1 week #7 tabs 08/22/21 09/27/23 Rx amlodipine 10 mg tablet 10 mg PO DAILY 01/07/22 09/27/23 History metoclopramide HCl 10 mg tablet 10 mg PO Q6H PRN Abdominal Pain 01/07/22 09/27/23 History ropinirole 1 mg tablet 2 mg PO DAILY PRN Restless Leg(S) 01/07/22 09/27/23 History buspirone 30 mg tablet 30 mg PO TID 01/11/23 09/27/23 History nystatin 100,000 unit/gram topical 1 applic topical BID #30 grams 08/04/23 09/27/23 Rx cream albuterol sulfate 90 mcg/actuation 1 inh inhalation Q4H PRN Dyspnea 08/09/23 09/27/23 History aerosol inhaler aripiprazole 5 mg tablet 5 mg PO DAILY 08/09/23 09/27/23 History aspirin 81 mg tablet,delayed 81 mg PO DAILY 08/09/23
[2023-10-13 06:59] LABS: Hematocrit 37.4 % (37.0-47.0); Mean Corpuscular HGB Conc 32.1 g/dl (32-36); Mean Corpuscular Hemoglobin 29.1 pg (26-34); Mean Corpuscular Volume 90.8 fl (80-100); Mean Platelet Volume 11.5 fl (7.4-10.4); Platelet Count Result 326 k/mm3 (150-375); Red Blood Count 4.12 M/mm3 (4.2-5.4); Red Cell Distribution Width 13.2 % (11.5-14.5); White Blood Count 11.7 K/mm3 (4.5-10.0)
[2023-10-13 07:08] LABS: Anion Gap 10 mmol/L (4-12); Blood Urea Nitrogen 18 mg/dL (7-17); Calcium 9.3 mg/dL (8.4-10.2); Carbon Dioxide 24 mmol/L (22-30); Chloride 107 mmol/L (98-107); Estimated CRCL calculation 72 ml/min; Estimated Glomerular Filt Rate 58; Glucose 128 mg/dL (65-110); Potassium 3.3 mmol/L (3.4-5.0); Sodium 141 mmol/L (137-145)
[2023-10-13 08:00] VITALS: O2SAT 96
--- NOTE | 2023-10-13 08:14 | PM.IMHP ---
H&P: HPI History of Present Illness Date/Time: 10/13/23 08:14 Chief Complaint: Right lower extremity swelling and drainage Narrative: This is a 53-year-old female with a past medical history significant for GERD, anxiety, asthma, hypothyroidism, fibromyalgia, high cholesterol, hypertension, and depression. The patient provides the following history which is limited as she is stressed regarding her hospitalization and has delayed responses as she has not had her normal medications today. She also reports that she is tired from not sleeping. Back and in August on 08/07 the patient presented to the emergency room after a fall. She says she was standing at her kitchen table and she she heard a pop which caused her to fall. She was found to have a right comminuted fracture of the lateral malleolus. Dr. Calvin with Orthopedics performed an ORIF of the right ankle. She had repeat imaging completed on 08/24 and 09-26 which showed healed showed a with good alignment. She was seen on 09/26 in clinic for her 6 week postop appointment and was cleared for full weight-bearing as tolerated. Yesterday 10/11 the patient states that her right ankle exploded with bloody drainage. She states she was told by Dr. Calvin to call if she had concerns for infection but she states she did not take him for his word as she did not think it would be possible for the ankle to become infected as she had surgery and the incision was healed. The patient states her ankle has been becoming more red and edematous over the course of a few weeks. She did not seek medical treatment until yesterday when the drainage started. She denies fever or chills. She reports some increased pain to the ankle that she describes as sharp and shooting at times. She thinks she may have been having some numbness but she is not sure. She is up independently home with a cane and can complete all ADLs. In the ED labs were fairly insignificant this by a leukocytosis of 12.7 and elevated CRP of 7.3. Lactic acid was normal and procalcitonin 0.1. She did have an elevated D-dimer 0.72. A Venous Doppler was performed which showed no DVT. Foot x-ray showed mild polyarticular osteoarthritis. CTA of the chest was completed which showed no pulmonary embolism. A wound culture was obtained as well as blood cultures which are pending. She was started on vancomycin and received a bolus of normal saline. She was admitted to the floor with orthopedic consult. Review of Systems Review of Systems: All systems reviewed & are unremarkable except as noted in HPI and below PMFSH Past Medical History Medical History Acid reflux Anxiety Asthma Disorder of thyroid Fibromyalgia High cholesterol Vaginal delivery x2 Surgical History Surgical History H/O removal of cyst tailbone H/O tubal ligation History of appendectomy History of colposcopy Family History Family History Mother Diabetes mellitus Hypertension Hyperlipidemia Father Hyperlipidemia Hypertension ALS (amyotrophic lateral sclerosis) Sibling , MVC No problems noted. Sibling No problems noted. Social History Social History (Updated 10/13/23 @ 14:21 by Maryana Ferrera APRN) Social History: Patient lives with her Jaun mendenhallates as her emergency contact. She is disabled and does not work. She has 2 living children. she reports smoking in the past but stopped 20 years ago. Smoking status: Former smoker Tobacco type: cigarettes Second hand tobacco smoke exposure: Yes Alcohol intake: never Substance use: never Substance use type: does not use Do You Feel Safe in your Home?: Yes Lack of Transportation: No Lack of Food: Never True Current Housing: I Have Housing Concerned About Future Housing: No
[2023-10-13] MEDS: GENTAMICIN SULFATE INJ 405 MG in DEXTROSE 5% 100 ML 100 MG IVPB (08:22)
[2023-10-13] MEDS: POTASSIUM CHLORIDE 20 MEQ ER TABLET 40 MEQ PO (09:27)
[2023-10-13 10:24] LABS: Procalcitonin 0.1 ng/mL
[2023-10-13] MEDS: hydrOXYzine HCL 25 MG TABLET 50 MG PO (11:37)
[2023-10-13] MEDS: amLODIPine BESYLATE 10 MG TABLET PO (11:52)
[2023-10-13] MEDS: LOSARTAN POTASSIUM 100 MG TABLET PO (11:52)
[2023-10-13] MEDS: LEVOTHYROXINE SODIUM 25 MCG TABLET PO (11:52)
[2023-10-13] MEDS: ARIPiprazole 5 MG TABLET PO (11:52)
[2023-10-13] MEDS: ASPIRIN 81 MG ENTERIC TABLET PO (11:52)
[2023-10-13] MEDS: ASCORBIC ACID 500 MG TABLET PO (11:52)
[2023-10-13] MEDS: metFORMIN HCL 500 MG TABLET 1000 MG PO ×2 (11:52→16:24)
[2023-10-13] MEDS: CHOLECALCIFEROL 1,000 UNITS TABLET 1000 UNITS PO (11:52)
[2023-10-13] MEDS: PREGABALIN (*CRX) 50 MG CAPSULE 100 MG PO ×2 (11:53→16:24)
[2023-10-13] MEDS: TOPIRAMATE 100 MG TABLET PO ×2 (11:53→17:09)
[2023-10-13] MEDS: MULTIVITAMINS THERAPEUTIC TAB (*BKC) 1 TABLET PO (11:53)
[2023-10-13] MEDS: PANTOPRAZOLE 40 MG TABLET PO (11:53)
[2023-10-13] MEDS: busPIRone HCL 10 MG TABLET 30 MG PO ×2 (11:53→16:24)
[2023-10-13] MEDS: MAGNESIUM OXIDE 200 MG TABLET PO (11:53)
[2023-10-13] MEDS: VITAMIN B COMPLEX CAPSULE 1 CAP PO (11:53)
[2023-10-13] MEDS: DICYCLOMINE HCL 10 MG CAPSULE PO ×2 (11:54→16:24)
[2023-10-13 14:00] VITALS: BP 141/73; PULSE 94; RESP 20; TEMP 35.7; O2SAT 94
[2023-10-13 15:09] VITALS: PULSE 90
[2023-10-13] MEDS: PROPRANOLOL HCL 60 MG CAPSULE CR 120 MG PO (15:09)
[2023-10-13] MEDS: FENOFIBRATE,MICRONIZED 48 MG TABLET PO (15:09)
--- NOTE | 2023-10-13 15:50 | PHAR ---
Pharmacy verified home med: * Use from home * Vilazodone [Viibryd] 40 mg tablet take 1 tablet by mouth at bedtime
[2023-10-13] MEDS: VANCOMYCIN 1,500 MG/NS 500 ML 1,500 MG/500 ML BAG 250 MG IVPB (16:22)
[2023-10-13 16:55] LABS: Glucose Point of Care 114 mg/dl (65-105)
[2023-10-13] MEDS: METOCLOPRAMIDE HCL 10 MG TABLET PO (17:09)
[2023-10-13 20:02] LABS: Gentamicin Random 3.6 ug/mL (5.0-12.0)
[2023-10-13] MEDS: SODIUM CHLORIDE 0.9% IV 1,000 ML 999 ML IV CONT (20:04)
[2023-10-13 20:45] VITALS: BP 142/92; PULSE 87; RESP 22; TEMP 36.7; O2SAT 96
[2023-10-13] MEDS: TOLNAFTATE 1% POWDER 45 GM BTL 1 APPLIC TOPICAL (21:02)
[2023-10-13] MEDS: MICONAZOLE NITRATE 2% CREAM 30 GM TUBE 1 APPLIC TOPICAL (21:02)
[2023-10-13] MEDS: SODIUM CHLORIDE 0.9% IV 1,000 ML 100 ML IV CONT (21:05)
[2023-10-13 21:09] LABS: Glucose Point of Care 99 mg/dl (65-105)
[2023-10-14] MEDS: HYDROcodone/acetaminophen (*CRX) 5-325 MG TABLET 1 TAB PO ×3 (00:36→14:19)
[2023-10-14] MEDS: traZODone HCL 50 MG TABLET PO ×2 (01:35→22:14)
[2023-10-14] MEDS: hydrOXYzine HCL 25 MG TABLET 50 MG PO (01:35)
[2023-10-14 05:56] VITALS: BP 128/72; PULSE 85; RESP 20; TEMP 36.6; O2SAT 95
[2023-10-14] MEDS: LEVOTHYROXINE SODIUM 25 MCG TABLET PO (06:30)
[2023-10-14] MEDS: METOCLOPRAMIDE HCL 10 MG TABLET PO ×2 (06:30→17:40)
[2023-10-14 06:46] LABS: Basophils Absolute Auto 0.1 K/mm3 (0.0-0.1); Basophils Percent Auto 0.7 % (0.2-1.2); Eosinophils Absolute Auto 0.5 K/mm3 (0-0.3); Eosinophils Percent Auto 5.8 % (0-4.4); Hematocrit 36.6 % (37.0-47.0); Hemoglobin 11.7 g/dL (12.0-15.0); Immature Granulocyte Absolute 0.03 K/mm3 (0.00-0.031); Immature Granulocyte Percent A 0.4 % (0-0.5); Lymphocytes Absolute Auto 3.21 K/mm3 (0.9-3.2); Lymphocytes Percent Auto 37.7 % (18.3-44.2); Mean Corpuscular Hemoglobin 29.2 pg (26-34); Mean Corpuscular Volume 91.3 fl (80-100); Mean Platelet Volume 11.2 fl (7.4-10.4); Monocytes Absolute Auto 0.9 K/mm3 (0.1-0.6); Neutrophils Absolute Auto 3.9 K/mm3 (1.3-6.7); Neutrophils Percent Auto 45.4 % (45.5-73.1); Platelet Count Result 328 k/mm3 (150-375); Red Blood Count 4.01 M/mm3 (4.2-5.4); Red Cell Distribution Width 13.4 % (11.5-14.5); White Blood Count 8.5 K/mm3 (4.5-10.0)
[2023-10-14 06:56] LABS: Alanine Aminotransferase 34 U/L (6-35); Albumin Level 3.8 g/dL (3.5-5.1); Alkaline Phosphatase 120 U/L (38-126); Anion Gap 13 mmol/L (4-12); Aspartate Amino Transferase 81 U/L (14-36); Bilirubin,Total 0.3 mg/dL (0.2-1.3); Blood Urea Nitrogen 10 mg/dL (7-17); Calcium 9.7 mg/dL (8.4-10.2); Carbon Dioxide 20 mmol/L (22-30); Chloride 109 mmol/L (98-107); Estimated CRCL calculation 79 ml/min; Estimated Glomerular Filt Rate > 60; Glucose 112 mg/dL (65-110); Magnesium 1.4 mg/dL (1.6-2.3); Potassium 3.5 mmol/L (3.4-5.0); Sodium 142 mmol/L (137-145)
--- NOTE | 2023-10-14 07:31 | PM.IMPN ---
Progress Note: A&P Assessment and Plan (1) Infected surgical wound: Code(s): T81.49XA - Infection following a procedure, other surgical site, initial encounter Status: Acute Assessment and Plan: Right lower extremity cellulitis. Patient has a history of ORIF to right ankle with repair done on 08/12/23. She reports increased erythema, warmth, and increased pain over the last few weeks. Leukocytosis 12.7 on admission, afebrile, lactic 1.2, procal 0.1 Leukocytosis has resolved, 8.5 Wound culture taken, blood cultures pending Patient was started on Vancomycin and Gentamicin. Vancomycin stopped and switched to Levaquin. Orthopedics was consulted, recs appreciated Conservative treatment for now with elevation and IV antibiotic therapy Wound care consulted, recs appreciated May need wash out depending on how she responds Tylenol PRN for fever, mild pain. [place] versus Tramadol for pain control (2) Depression with anxiety: Code(s): F41.8 - Other specified anxiety disorders Status: Acute Assessment and Plan: Stable but she is anxious and has difficult concentrating during history. She attributes to not having her medications today and not having great sleep overnight. Home medications resumed (3) Diabetes: Code(s): E11.9 - Type 2 diabetes mellitus without complications Status: Acute Assessment and Plan: Patient is normally on metformin 1000 mg daily. Holding metformin while inpatient ACHS accu checks, hypoglycemia protocol High dose SSI Repeating Hgb A1C 5.5% Plan DVT prophylaxis: SCD Glycemic control: Patient is typically on metformin. Holding while inpatient. Hypoglycemia protocol. ACHS Accu checks. High dose SSI. Repeating Hgb A1C now. Code Status: FULL CODE Disposition: This is a 53 year old female who presents with right lower ankle drainage and swelling with concerns for cellulitis after ORIF in August. Orthopedics is being consulted. She is being treated with IV antibiotics and conservative measures. May end up needing debridement. Medication reconciliation obtained via the following: Nurse completed on admission The file time of this note does not necessarily represent the time the patient was seen. Subjective Date/time seen: 10/14/23 07:31 Interval history: This is a 53-year-old female with a past medical history significant for GERD, anxiety, asthma, hypothyroidism, fibromyalgia, high cholesterol, hypertension, and depression. She presents with right lower foot erythema, edema, and drainage from a previously healed surgical incision from a right ankle ORIF in 08/2023. 10/13: No acute events overnight. She is having some nausea this morning. She also is having some loose stools. Her reports she has a history of IBS. Dressing changed by myself and her nurse. Review of Systems Review of Systems: All systems reviewed & are unremarkable except as noted in HPI and below Exam Narrative: General: well appearing, anxious at times, appears stated age. HEENT: normocephalic, atraumatic. Mucous membranes moist. EOMI, PERRLA, bilateral sclera anicteric, no conjunctival injection. Neck supple without JVD, lymphadenopathy, or bruit. Respiratory: clear to auscultation bilaterally. No rales/rhonic/wheezes. Cardiovascular: Regular rate and rhythm, normal S1-S2 upon auscultation. No murmurs, rubs, or clicks. PMI is nondisplaced, capillary refill less than 3 second. Abdomen: Soft, round, no pulsatile masses, nondistended and nontender. No rebound, no guarding. No CVA tenderness, no hepatosplenomegaly. Bowel sounds present to all four quadrants. No high pitch or tinkling sounds, resonant to percussion. Extremities: No cyanosis, clubbing. Right lower extremity is elevated and wrapped with Leandro bandage per Ortho. Patient can freely move toes and has les
[2023-10-14 08:07] LABS: Glucose Point of Care 105 mg/dl (65-105)
[2023-10-14 09:12] VITALS: BP 144/90; PULSE 84; RESP 16; O2SAT 95
[2023-10-14] MEDS: TOPIRAMATE 100 MG TABLET PO ×2 (09:15→17:39)
[2023-10-14] MEDS: VITAMIN B COMPLEX CAPSULE 1 CAP PO (09:15)
[2023-10-14 09:16] VITALS: PULSE 82
[2023-10-14] MEDS: MAGNESIUM OXIDE 400 MG TABLET PO (09:16)
[2023-10-14] MEDS: PROPRANOLOL HCL 60 MG CAPSULE CR 120 MG PO (09:16)
[2023-10-14] MEDS: PREGABALIN (*CRX) 50 MG CAPSULE 100 MG PO ×3 (09:16→17:39)
[2023-10-14] MEDS: PANTOPRAZOLE 40 MG TABLET PO (09:16)
[2023-10-14] MEDS: ASCORBIC ACID 500 MG TABLET PO (09:16)
[2023-10-14] MEDS: MAGNESIUM OXIDE 200 MG TABLET PO (09:16)
[2023-10-14] MEDS: DICYCLOMINE HCL 10 MG CAPSULE PO ×3 (09:16→17:39)
[2023-10-14] MEDS: MULTIVITAMINS THERAPEUTIC TAB (*BKC) 1 TABLET PO (09:16)
[2023-10-14] MEDS: amLODIPine BESYLATE 10 MG TABLET PO (09:16)
[2023-10-14] MEDS: CHOLECALCIFEROL 1,000 UNITS TABLET 1000 UNITS PO (09:16)
[2023-10-14] MEDS: ASPIRIN 81 MG ENTERIC TABLET PO (09:16)
[2023-10-14] MEDS: LOSARTAN POTASSIUM 100 MG TABLET PO (09:16)
[2023-10-14] MEDS: busPIRone HCL 10 MG TABLET 30 MG PO ×3 (09:16→17:40)
[2023-10-14] MEDS: ARIPiprazole 5 MG TABLET PO (09:16)
[2023-10-14] MEDS: POTASSIUM CHLORIDE 20 MEQ ER TABLET 40 MEQ PO (09:17)
[2023-10-14] MEDS: rOPINIRole HCL 1 MG TABLET 4 MG PO (09:17)
[2023-10-14] MEDS: GENTAMICIN SULFATE INJ 405 MG in DEXTROSE 5% 100 ML 100 MG IVPB (09:17)
[2023-10-14] MEDS: FENOFIBRATE,MICRONIZED 48 MG TABLET PO (09:23)
[2023-10-14 11:34] LABS: Glucose Point of Care 133 mg/dl (65-105)
[2023-10-14 12:21] LABS: Hemoglobin A1C 5.5 % (<5.7)
[2023-10-14] MEDS: ONDANSETRON HCL ODT 4 MG TABLET PO (12:39)
[2023-10-14] MEDS: levoFLOXacin 750 MG/D5W 150 ML 750 MG/150 ML BAG 100 MG IVPB (12:39)
[2023-10-14] MEDS: MICONAZOLE NITRATE 2% CREAM 30 GM TUBE 1 APPLIC TOPICAL ×2 (12:40→20:41)
[2023-10-14] MEDS: TOLNAFTATE 1% POWDER 45 GM BTL 1 APPLIC TOPICAL ×2 (12:40→20:41)
[2023-10-14 14:00] VITALS: BP 138/80; PULSE 76; RESP 18; TEMP 35.8; O2SAT 94
[2023-10-14 16:53] LABS: Glucose Point of Care 105 mg/dl (65-105)
[2023-10-14 20:00] VITALS: PULSE 78; RESP 20; O2SAT 96
[2023-10-14 20:24] VITALS: BP 151/96; PULSE 78; RESP 20; TEMP 36.4; O2SAT 96
[2023-10-14 20:31] LABS: Glucose Point of Care 148 mg/dl (65-105)
[2023-10-15 04:59] LABS: Basophils Absolute Auto 0.1 K/mm3 (0.0-0.1); Basophils Percent Auto 0.8 % (0.2-1.2); Eosinophils Absolute Auto 0.5 K/mm3 (0-0.3); Eosinophils Percent Auto 6.8 % (0-4.4); Hematocrit 38.2 % (37.0-47.0); Immature Granulocyte Absolute 0.02 K/mm3 (0.00-0.031); Immature Granulocyte Percent A 0.3 % (0-0.5); Lymphocytes Absolute Auto 3.45 K/mm3 (0.9-3.2); Lymphocytes Percent Auto 46.7 % (18.3-44.2); Mean Corpuscular HGB Conc 31.4 g/dl (32-36); Mean Corpuscular Hemoglobin 28.9 pg (26-34); Monocytes Absolute Auto 0.6 K/mm3 (0.1-0.6); Monocytes Percent Auto 8.5 % (2.6-8.5); Neutrophils Absolute Auto 2.7 K/mm3 (1.3-6.7); Neutrophils Percent Auto 36.9 % (45.5-73.1); Platelet Count Result 338 k/mm3 (150-375); Red Blood Count 4.15 M/mm3 (4.2-5.4); Red Cell Distribution Width 13.4 % (11.5-14.5); White Blood Count 7.4 K/mm3 (4.5-10.0)
[2023-10-15 05:27] LABS: Alanine Aminotransferase 23 U/L (6-35); Albumin Level 3.6 g/dL (3.5-5.1); Alkaline Phosphatase 91 U/L (38-126); Anion Gap 8 mmol/L (4-12); Aspartate Amino Transferase 42 U/L (14-36); Bilirubin,Total 0.3 mg/dL (0.2-1.3); Blood Urea Nitrogen 9 mg/dL (7-17); Calcium 9.9 mg/dL (8.4-10.2); Carbon Dioxide 25 mmol/L (22-30); Chloride 109 mmol/L (98-107); Estimated CRCL calculation 66 ml/min; Estimated Glomerular Filt Rate 52; Glucose 109 mg/dL (65-110); Magnesium 1.6 mg/dL (1.6-2.3); Sodium 142 mmol/L (137-145)
[2023-10-15] MEDS: LEVOTHYROXINE SODIUM 25 MCG TABLET PO (05:45)
[2023-10-15] MEDS: METOCLOPRAMIDE HCL 10 MG TABLET PO ×2 (05:45→17:43)
[2023-10-15 06:00] VITALS: BP 137/75; PULSE 73; RESP 20; TEMP 36.2; O2SAT 91
--- NOTE | 2023-10-15 07:39 | PM.IMPN ---
Progress Note: A&P Assessment and Plan (1) Infected surgical wound: Code(s): T81.49XA - Infection following a procedure, other surgical site, initial encounter Status: Acute Assessment and Plan: Right lower extremity cellulitis. Patient has a history of ORIF to right ankle with repair done on 08/12/23. She reports increased erythema, warmth, and increased pain over the last few weeks. Leukocytosis 12.7 on admission, afebrile, lactic 1.2, procal 0.1 Leukocytosis has resolved, 8.5-->7.4 Wound culture with no WBC or organism seen, blood cultures with no growth Patient was started on Vancomycin and Gentamicin. Vancomycin stopped and switched to Levaquin. Orthopedics was consulted, recs appreciated Conservative treatment for now with elevation and IV antibiotic therapy Wound care consulted, recs appreciated May need wash out depending on how she responds Tylenol PRN for fever, mild pain. [place] versus Tramadol for pain control (2) Depression with anxiety: Code(s): F41.8 - Other specified anxiety disorders Status: Acute Assessment and Plan: Stable but she is anxious and has difficult concentrating during history. She attributes to not having her medications today and not having great sleep overnight. Home medications resumed (3) Diabetes: Code(s): E11.9 - Type 2 diabetes mellitus without complications Status: Acute Assessment and Plan: Patient is normally on metformin 1000 mg daily. Holding metformin while inpatient ACHS accu checks, hypoglycemia protocol High dose SSI Repeating Hgb A1C 5.5% Plan DVT prophylaxis: SCD Glycemic control: Patient is typically on metformin. Holding while inpatient. Hypoglycemia protocol. ACHS Accu checks. High dose SSI. Repeating Hgb A1C now. Code Status: FULL CODE Disposition: This is a 53 year old female who presents with right lower ankle drainage and swelling with concerns for cellulitis after ORIF in August. Orthopedics is being consulted. She is being treated with IV antibiotics and conservative measures. May end up needing debridement. Medication reconciliation obtained via the following: Nurse completed on admission The file time of this note does not necessarily represent the time the patient was seen. Subjective Date/time seen: 10/15/23 07:39 Interval history: This is a 53-year-old female with a past medical history significant for GERD, anxiety, asthma, hypothyroidism, fibromyalgia, high cholesterol, hypertension, and depression. She presents with right lower foot erythema, edema, and drainage from a previously healed surgical incision from a right ankle ORIF in 08/2023. 10/13: No acute events overnight. She is having some nausea this morning. She also is having some loose stools. Her reports she has a history of IBS. Dressing changed by myself and her nurse. 10/14: No significant changes overnight. Nursing and already changed her dressing prior to me seeing her today. The patient says that the redness and swelling is going down since she 1st presented but there is still redness surrounding the healed incision. She states there was less drainage today. Review of Systems Review of Systems: All systems reviewed & are unremarkable except as noted in HPI and below Exam Narrative: General: well appearing, anxious at times, appears stated age. HEENT: normocephalic, atraumatic. Mucous membranes moist. EOMI, PERRLA, bilateral sclera anicteric, no conjunctival injection. Neck supple without JVD, lymphadenopathy, or bruit. Respiratory: clear to auscultation bilaterally. No rales/rhonic/wheezes. Cardiovascular: Regular rate and rhythm, normal S1-S2 upon auscultation. No murmurs, rubs, or clicks. PMI is nondisplaced, capillary refill less than 3 second. Abdomen: Soft, round, no pulsatile masses, nondistended
[2023-10-15 08:04] LABS: Glucose Point of Care 106 mg/dl (65-105)
[2023-10-15 09:18] VITALS: BP 140/76; PULSE 86; RESP 16
[2023-10-15] MEDS: PREGABALIN (*CRX) 50 MG CAPSULE 100 MG PO ×3 (09:19→17:43)
[2023-10-15] MEDS: FENOFIBRATE,MICRONIZED 48 MG TABLET PO (09:20)
[2023-10-15] MEDS: DICYCLOMINE HCL 10 MG CAPSULE PO ×3 (09:20→17:43)
[2023-10-15] MEDS: ASCORBIC ACID 500 MG TABLET PO (09:20)
[2023-10-15] MEDS: LOSARTAN POTASSIUM 100 MG TABLET PO (09:20)
[2023-10-15] MEDS: amLODIPine BESYLATE 10 MG TABLET PO (09:20)
[2023-10-15] MEDS: ARIPiprazole 5 MG TABLET PO (09:20)
[2023-10-15] MEDS: TOPIRAMATE 100 MG TABLET PO ×2 (09:20→17:43)
[2023-10-15] MEDS: VITAMIN B COMPLEX CAPSULE 1 CAP PO (09:20)
[2023-10-15] MEDS: ASPIRIN 81 MG ENTERIC TABLET PO (09:20)
[2023-10-15] MEDS: CHOLECALCIFEROL 1,000 UNITS TABLET 1000 UNITS PO (09:20)
[2023-10-15] MEDS: busPIRone HCL 10 MG TABLET 30 MG PO ×3 (09:20→17:43)
[2023-10-15] MEDS: MULTIVITAMINS THERAPEUTIC TAB (*BKC) 1 TABLET PO (09:20)
[2023-10-15] MEDS: PANTOPRAZOLE 40 MG TABLET PO (09:20)
[2023-10-15 09:21] VITALS: PULSE 84
[2023-10-15] MEDS: MAGNESIUM OXIDE 200 MG TABLET PO (09:21)
[2023-10-15] MEDS: rOPINIRole HCL 1 MG TABLET 4 MG PO (09:21)
[2023-10-15] MEDS: PROPRANOLOL HCL 60 MG CAPSULE CR 120 MG PO (09:21)
[2023-10-15] MEDS: GENTAMICIN SULFATE INJ 405 MG in DEXTROSE 5% 100 ML 100 MG IVPB (09:22)
[2023-10-15] MEDS: TOLNAFTATE 1% POWDER 45 GM BTL 1 APPLIC TOPICAL ×2 (09:22→21:13)
[2023-10-15 11:52] LABS: Glucose Point of Care 194 mg/dl (65-105)
[2023-10-15] MEDS: levoFLOXacin 750 MG/D5W 150 ML 750 MG/150 ML BAG 100 MG IVPB (12:45)
[2023-10-15 14:00] VITALS: BP 130/62; PULSE 80; RESP 18; TEMP 36.4; O2SAT 92
[2023-10-15] MEDS: HYDROcodone/acetaminophen (*CRX) 5-325 MG TABLET 1 TAB PO (14:21)
[2023-10-15 17:09] LABS: Glucose Point of Care 114 mg/dl (65-105)
[2023-10-15 20:00] VITALS: PULSE 78; RESP 20; O2SAT 96
[2023-10-15 20:32] VITALS: BP 128/71; PULSE 78; RESP 20; TEMP 36.3; O2SAT 96
[2023-10-15 20:48] LABS: Glucose Point of Care 120 mg/dl (65-105)
[2023-10-15] MEDS: traZODone HCL 50 MG TABLET PO (21:13)
[2023-10-15] MEDS: MICONAZOLE NITRATE 2% CREAM 30 GM TUBE 1 APPLIC TOPICAL (21:13)
[2023-10-15] MEDS: traMADol HCL (*CRX) 50 MG TABLET PO (21:13)
[2023-10-16 04:44] VITALS: BP 142/76; PULSE 75; RESP 20; TEMP 36.5; O2SAT 92
[2023-10-16] MEDS: METOCLOPRAMIDE HCL 10 MG TABLET PO ×2 (05:05→18:18)
[2023-10-16] MEDS: LEVOTHYROXINE SODIUM 25 MCG TABLET PO (05:05)
[2023-10-16] MEDS: HYDROcodone/acetaminophen (*CRX) 5-325 MG TABLET 1 TAB PO ×2 (05:45→18:19)
--- NOTE | 2023-10-16 06:58 | PM.IMPN ---
Progress Note: A&P Assessment and Plan (1) Infected surgical wound: Code(s): T81.49XA - Infection following a procedure, other surgical site, initial encounter Status: Acute Assessment and Plan: Right lower extremity cellulitis. Patient has a history of ORIF to right ankle with repair done on 08/12/23. She reports increased erythema, warmth, and increased pain over the last few weeks. Leukocytosis 12.7 on admission, afebrile, lactic 1.2, procal 0.1 Leukocytosis has resolved, 8.5-->7.4 Wound culture with no WBC or organism seen, blood cultures with no growth Patient was started on Vancomycin and Gentamicin. Vancomycin stopped and switched to Levaquin. Orthopedics was consulted, recs appreciated Conservative treatment for now with elevation and IV antibiotic therapy Wound care consulted, recs appreciated May need wash out depending on how she responds Tylenol PRN for fever, mild pain. [place] versus Tramadol for pain control (2) Depression with anxiety: Code(s): F41.8 - Other specified anxiety disorders Status: Acute Assessment and Plan: Stable but she is anxious and has difficult concentrating during history. She attributes to not having her medications today and not having great sleep overnight. Home medications resumed (3) Diabetes: Code(s): E11.9 - Type 2 diabetes mellitus without complications Status: Acute Assessment and Plan: Patient is normally on metformin 1000 mg daily. Holding metformin while inpatient ACHS accu checks, hypoglycemia protocol High dose SSI Repeating Hgb A1C 5.5% Plan DVT prophylaxis: SCD Glycemic control: Patient is typically on metformin. Holding while inpatient. Hypoglycemia protocol. ACHS Accu checks. High dose SSI. Repeating Hgb A1C now. Code Status: FULL CODE Disposition: This is a 53 year old female who presents with right lower ankle drainage and swelling with concerns for cellulitis after ORIF in August. Orthopedics is being consulted. She is being treated with IV antibiotics and conservative measures. May end up needing debridement. Medication reconciliation obtained via the following: Nurse completed on admission The file time of this note does not necessarily represent the time the patient was seen. Subjective Date/time seen: 10/16/23 06:58 Interval history: This is a 53-year-old female with a past medical history significant for GERD, anxiety, asthma, hypothyroidism, fibromyalgia, high cholesterol, hypertension, and depression. She presents with right lower foot erythema, edema, and drainage from a previously healed surgical incision from a right ankle ORIF in 08/2023. 10/13: No acute events overnight. She is having some nausea this morning. She also is having some loose stools. Her reports she has a history of IBS. Dressing changed by myself and her nurse. 10/14: No significant changes overnight. Nursing and already changed her dressing prior to me seeing her today. The patient says that the redness and swelling is going down since she 1st presented but there is still redness surrounding the healed incision. She states there was less drainage today. 10/15: No acute events overnight. Your seen to her free lateral ankle has shown improvement since admission. There is less drainage today as well. Slight bump in her creatinine but historically within normal limits. Encouraged PO fluids. Anticipating Dr Calvin to weigh in tomorrow about whether or not she will need surgery. Review of Systems Review of Systems: All systems reviewed & are unremarkable except as noted in HPI and below Exam Narrative: General: well appearing, anxious at times, appears stated age. HEENT: normocephalic, atraumatic. Mucous membranes moist. EOMI, PERRLA, bilateral sclera anicteric, no conjunctival injection. Neck supple
[2023-10-16 07:28] LABS: Alanine Aminotransferase 23 U/L (6-35); Albumin Level 3.7 g/dL (3.5-5.1); Alkaline Phosphatase 89 U/L (38-126); Anion Gap 8 mmol/L (4-12); Aspartate Amino Transferase 41 U/L (14-36); Bilirubin,Total 0.3 mg/dL (0.2-1.3); Blood Urea Nitrogen 15 mg/dL (7-17); Calcium 9.9 mg/dL (8.4-10.2); Carbon Dioxide 28 mmol/L (22-30); Chloride 104 mmol/L (98-107); Estimated CRCL calculation 60 ml/min; Estimated Glomerular Filt Rate 47; Glucose 111 mg/dL (65-110); Magnesium 1.6 mg/dL (1.6-2.3); Potassium 3.9 mmol/L (3.4-5.0); Sodium 140 mmol/L (137-145)
[2023-10-16 07:38] LABS: Basophils Absolute Auto 0.1 K/mm3 (0.0-0.1); Eosinophils Absolute Auto 0.5 K/mm3 (0-0.3); Eosinophils Percent Auto 6.5 % (0-4.4); Hematocrit 38.6 % (37.0-47.0); Hemoglobin 12.3 g/dL (12.0-15.0); Immature Granulocyte Absolute 0.08 K/mm3 (0.00-0.031); Lymphocytes Percent Auto 38.5 % (18.3-44.2); Mean Corpuscular HGB Conc 31.9 g/dl (32-36); Mean Corpuscular Hemoglobin 28.9 pg (26-34); Mean Corpuscular Volume 90.8 fl (80-100); Mean Platelet Volume 11.2 fl (7.4-10.4); Monocytes Absolute Auto 0.8 K/mm3 (0.1-0.6); Monocytes Percent Auto 9.8 % (2.6-8.5); Neutrophils Absolute Auto 3.5 K/mm3 (1.3-6.7); Neutrophils Percent Auto 43.2 % (45.5-73.1); Platelet Count Result 363 k/mm3 (150-375); Red Blood Count 4.25 M/mm3 (4.2-5.4); Red Cell Distribution Width 13.5 % (11.5-14.5); White Blood Count 8.1 K/mm3 (4.5-10.0)
[2023-10-16 07:59] LABS: Glucose Point of Care 104 mg/dl (65-105)
[2023-10-16 08:52] LABS: Gentamicin Random 1.7 ug/mL (5.0-12.0)
[2023-10-16 09:18] VITALS: BP 130/84; PULSE 80; RESP 16; O2SAT 94
[2023-10-16 09:21] VITALS: PULSE 80
[2023-10-16] MEDS: VITAMIN B COMPLEX CAPSULE 1 CAP PO (09:21)
[2023-10-16] MEDS: PROPRANOLOL HCL 60 MG CAPSULE CR 120 MG PO (09:21)
[2023-10-16] MEDS: amLODIPine BESYLATE 10 MG TABLET PO (09:21)
[2023-10-16] MEDS: ASCORBIC ACID 500 MG TABLET PO (09:21)
[2023-10-16] MEDS: LOSARTAN POTASSIUM 100 MG TABLET PO (09:21)
[2023-10-16] MEDS: FENOFIBRATE,MICRONIZED 48 MG TABLET PO (09:21)
[2023-10-16] MEDS: TOPIRAMATE 100 MG TABLET PO ×2 (09:21→18:19)
[2023-10-16] MEDS: ARIPiprazole 5 MG TABLET PO (09:21)
[2023-10-16] MEDS: MAGNESIUM OXIDE 200 MG TABLET PO (09:21)
[2023-10-16] MEDS: CHOLECALCIFEROL 1,000 UNITS TABLET 1000 UNITS PO (09:21)
[2023-10-16] MEDS: busPIRone HCL 10 MG TABLET 30 MG PO ×3 (09:21→18:33)
[2023-10-16] MEDS: ASPIRIN 81 MG ENTERIC TABLET PO (09:21)
[2023-10-16] MEDS: PANTOPRAZOLE 40 MG TABLET PO (09:21)
[2023-10-16] MEDS: PREGABALIN (*CRX) 50 MG CAPSULE 100 MG PO ×3 (09:21→18:19)
[2023-10-16] MEDS: MULTIVITAMINS THERAPEUTIC TAB (*BKC) 1 TABLET PO (09:22)
[2023-10-16] MEDS: rOPINIRole HCL 1 MG TABLET 4 MG PO (09:22)
[2023-10-16] MEDS: DICYCLOMINE HCL 10 MG CAPSULE PO ×3 (09:22→18:18)
[2023-10-16] MEDS: MICONAZOLE NITRATE 2% CREAM 30 GM TUBE 1 APPLIC TOPICAL ×2 (09:22→21:12)
[2023-10-16] MEDS: TOLNAFTATE 1% POWDER 45 GM BTL 1 APPLIC TOPICAL ×2 (09:22→21:12)
[2023-10-16] MEDS: GENTAMICIN SULFATE INJ 405 MG in DEXTROSE 5% 100 ML 100 MG IVPB (09:30)
[2023-10-16 12:27] LABS: Glucose Point of Care 175 mg/dl (65-105)
[2023-10-16] MEDS: levoFLOXacin 750 MG/D5W 150 ML 750 MG/150 ML BAG 100 MG IVPB (13:01)
[2023-10-16 14:00] VITALS: BP 116/81; PULSE 75; RESP 19; TEMP 36.5; O2SAT 97
[2023-10-16 17:21] LABS: Glucose Point of Care 87 mg/dl (65-105)
[2023-10-16 20:00] VITALS: PULSE 75; RESP 19; O2SAT 97
[2023-10-16 20:27] LABS: Gentamicin Random 5.8 ug/mL (5.0-12.0)
[2023-10-16 20:51] LABS: Glucose Point of Care 120 mg/dl (65-105)
[2023-10-16] MEDS: traZODone HCL 50 MG TABLET PO (21:12)
[2023-10-16 22:00] VITALS: BP 126/67; PULSE 75; RESP 18; TEMP 36.2; O2SAT 93
[2023-10-17] MEDS: METOCLOPRAMIDE HCL 10 MG TABLET PO (05:46)
[2023-10-17] MEDS: LEVOTHYROXINE SODIUM 25 MCG TABLET PO (05:46)
[2023-10-17 06:00] VITALS: BP 134/70; PULSE 76; RESP 18; TEMP 36.6; O2SAT 92
[2023-10-17 06:15] LABS: Basophils Absolute Auto 0.1 K/mm3 (0.0-0.1); Basophils Percent Auto 1.2 % (0.2-1.2); Eosinophils Absolute Auto 0.6 K/mm3 (0-0.3); Eosinophils Percent Auto 7.1 % (0-4.4); Hematocrit 39.1 % (37.0-47.0); Hemoglobin 12.6 g/dL (12.0-15.0); Immature Granulocyte Absolute 0.02 K/mm3 (0.00-0.031); Immature Granulocyte Percent A 0.2 % (0-0.5); Lymphocytes Absolute Auto 3.56 K/mm3 (0.9-3.2); Lymphocytes Percent Auto 43.8 % (18.3-44.2); Mean Corpuscular HGB Conc 32.2 g/dl (32-36); Mean Corpuscular Hemoglobin 29.4 pg (26-34); Mean Corpuscular Volume 91.1 fl (80-100); Monocytes Absolute Auto 0.8 K/mm3 (0.1-0.6); Monocytes Percent Auto 10.1 % (2.6-8.5); Neutrophils Absolute Auto 3.1 K/mm3 (1.3-6.7); Neutrophils Percent Auto 37.6 % (45.5-73.1); Platelet Count Result 387 k/mm3 (150-375); Red Blood Count 4.29 M/mm3 (4.2-5.4); Red Cell Distribution Width 13.4 % (11.5-14.5); White Blood Count 8.1 K/mm3 (4.5-10.0)
[2023-10-17 06:22] LABS: Alanine Aminotransferase 21 U/L (6-35); Albumin Level 3.7 g/dL (3.5-5.1); Alkaline Phosphatase 85 U/L (38-126); Anion Gap 12 mmol/L (4-12); Aspartate Amino Transferase 40 U/L (14-36); Bilirubin,Total 0.3 mg/dL (0.2-1.3); Blood Urea Nitrogen 12 mg/dL (7-17); Calcium 9.8 mg/dL (8.4-10.2); Carbon Dioxide 25 mmol/L (22-30); Chloride 106 mmol/L (98-107); Estimated CRCL calculation 66 ml/min; Estimated Glomerular Filt Rate 52; Glucose 108 mg/dL (65-110); Magnesium 1.8 mg/dL (1.6-2.3); Potassium 3.8 mmol/L (3.4-5.0); Sodium 143 mmol/L (137-145)
--- NOTE | 2023-10-17 07:13 | PM.PNORT ---
Progress Note: A&P Assessment and Plan (1) Infected surgical wound: Code(s): T81.49XA - Infection following a procedure, other surgical site, initial encounter Status: Acute Assessment and Plan: Patient is showing slow progress. Swelling is better. She has some erythema about the wound little bit of drainage. During her time here she has been: 1 afebrile 2 cultures have been negative 3 she has been relatively comfortable I had a long discussion with her regarding possible treatment options. She can either go home on potentially Keflex and doxycycline. Her 2nd option would be surgical debridement. I discussed these options in detail. She is going to think about it. Subjective Subjective Date/Time Seen: 10/17/23 07:13 Principal diagnosis: Surgical site infections from an ankle fracture right Review of Systems Musculoskeletal: Musculoskeletal: Reports arthralgias, Reports joint swelling and Reports stiffness Exam Narrative: The wound shows mild erythema. Couple areas of drainage. Drainage is severe. Swelling in the leg has decreased. Objective Data Vital Signs Vital Signs: Vital Signs - 24 hr 10/16/23 09:18 10/16/23 09:21 10/16/23 09:30 Temperature Pulse Rate 80 80 Respiratory Rate 16 Blood Pressure 130/84 Pulse Oximetry 94 Oxygen Delivery Room Air 10/16/23 14:00 10/16/23 20:00 10/16/23 22:00 Temperature 97.7 F 97.2 F L Pulse Rate 75 75 75 Respiratory Rate 19 19 18 Blood Pressure 116/81 126/67 Pulse Oximetry 97 97 93 Oxygen Delivery Room Air 10/17/23 06:00 Temperature 97.9 F Pulse Rate 76 Respiratory Rate 18 Blood Pressure 134/70 Pulse Oximetry 92 Oxygen Delivery Intake/Output Intake/Output: Intake & Output 10/14/23 10/15/23 10/16/23 10/17/23 23:59 23:59 23:59 23:59 Intake Total 7814.970 5281.125 1892.125 Balance 9825.879 2572.125 1892.125 Meds/Results Medications: Active Medications Generic Name Dose Route Start Last Admin Trade Name Freq PRN Reason Stop Dose Admin Acetaminophen 500 mg 10/13/23 03:15 Acetaminophen 500 Mg Tablet PO Q6H PRN Mild Pain (1-3) or Fever Hydrocodone Bitart/Acetaminophen 1 tab 10/13/23 03:17 10/16/23 18:19 Hydrocodone/Acetaminophen (*Crx) 5-325 Mg Tablet PO 1 tab Q4H PRN Administration Pain Rated 7-10 Albuterol 1 puff 10/13/23 11:22 Albuterol Sulfate (*Sp) Aerosol 1 Puff INHALATION Q4H PRN Dyspnea Amlodipine Besylate 10 mg 10/13/23 11:35 10/16/23 09:21 Amlodipine Besylate 10 Mg Tablet PO 10 mg DAILY ELLIS Administration Aripiprazole 5 mg 10/13/23 11:35 10/16/23 09:21 Aripiprazole 5 Mg Tablet PO 5 mg DAILY ELLIS Administration Ascorbic Acid 500 mg 10/13/23 11:35 10/16/23 09:21 Ascorbic Acid 500 Mg Tablet PO 500 mg DAILY ELLIS Administration Aspirin 81 mg 10/13/23 11:35 10/16/23 09:21 Aspirin 81 Mg Enteric Tablet PO 81 mg DAILY ELLIS Administration Buspirone HCl 30 mg 10/13/23 13:00 10/16/23 18:33 Buspirone Hcl 10 Mg Tablet PO 30 mg TID ELLIS Administration Dextrose 12.5 gm 10/13/23 16:34 Dextrose 50% 25 Gm/50 Ml Syringe IV PUSH PRN PRN Hypoglycemia Protocol Dicyclomine HCl 10 mg 10/13/23 13:00 10/16/23 18:18 Dicyclomine Hcl 10 Mg Capsule PO 10 mg TID ELLIS Administration Fenofibrate 48 mg 10/13/23 12:05 10/16/23 09:21 Fenofibrate,Micronized 48 Mg Tablet PO 48 mg QAM ELLIS Administration Fluticasone Propionate 1 spray 10/13/23 11:35 10/16/23 09:22 Fluticasone Propionate 0.05% Na Spr 16 Gm Btl (*Bkc) NASAL Not Given DAILY ELLIS Glucagon 1 mg 10/13/23 16:34 Glucagon For Inj 1 Mg Vial IM PRN PRN Hypoglycemia Protocol Glucose 15 gm 10/13/23 16:34 Glucose Oral Gel 15 Gm Of Glucse In 37.5 Gm Tube PO PRN PRN Hypoglycemia Protocol Hydroxyzine HCl 50 mg 10/13/23 11:22 10/14/23 01:35 Hydroxyzine Hc
[2023-10-17 07:54] LABS: Glucose Point of Care 105 mg/dl (65-105)
[2023-10-17 08:43] LABS: CRP 0.5 mg/dL (<1.0)
--- NOTE | 2023-10-17 08:46 | PM.DS ---
DS: Admitting Diagnosis Discharge Date 10/16 Admitting Diagnosis Foot infection DS: Discharge Diagnosis Discharge Diagnosis (1) Infected surgical wound: Code(s): T81.49XA - Infection following a procedure, other surgical site, initial encounter Status: Acute Assessment and Plan: Right lower extremity cellulitis. Patient has a history of ORIF to right ankle with repair done on 08/12/23. She reports increased erythema, warmth, and increased pain over the last few weeks. Leukocytosis 12.7 on admission, afebrile, lactic 1.2, procal 0.1 Leukocytosis has resolved, 8.5-->7.4 Wound culture with no WBC or organism seen, blood cultures with no growth Patient was started on Vancomycin and Gentamicin. Vancomycin stopped and switched to Levaquin. Orthopedics was consulted, recs appreciated Conservative treatment for now with elevation and IV antibiotic therapy Wound care consulted, recs appreciated May need wash out depending on how she responds Tylenol PRN for fever, mild pain. [place] versus Tramadol for pain control (2) Depression with anxiety: Code(s): F41.8 - Other specified anxiety disorders Status: Acute Assessment and Plan: Stable but she is anxious and has difficult concentrating during history. She attributes to not having her medications today and not having great sleep overnight. Home medications resumed (3) Diabetes: Code(s): E11.9 - Type 2 diabetes mellitus without complications Status: Acute Assessment and Plan: Patient is normally on metformin 1000 mg daily. Holding metformin while inpatient ACHS accu checks, hypoglycemia protocol High dose SSI Repeating Hgb A1C 5.5% Plan DVT prophylaxis: SCD Glycemic control: Patient is typically on metformin. Holding while inpatient. Hypoglycemia protocol. ACHS Accu checks. High dose SSI. Repeating Hgb A1C now. Code Status: FULL CODE Disposition: This is a 53 year old female who presents with right lower ankle drainage and swelling with concerns for cellulitis after ORIF in August. Orthopedics is being consulted. She is being treated with IV antibiotics and conservative measures. May end up needing debridement. Medication reconciliation obtained via the following: Nurse completed on admission The file time of this note does not necessarily represent the time the patient was seen. DS: Summary Hospital Course Reason for hospitalization: Infected surgical wound Hospital Course: This is a 53-year-old female with a past medical history significant for GERD, anxiety, asthma, hypothyroidism, fibromyalgia, high cholesterol, hypertension, and depression. The patient provides the following history which is limited as she is stressed regarding her hospitalization and has delayed responses as she has not had her normal medications today. She also reports that she is tired from not sleeping. Back and in August on 08/07 the patient presented to the emergency room after a fall. She says she was standing at her kitchen table and she she heard a pop which caused her to fall. She was found to have a right comminuted fracture of the lateral malleolus. Dr. Calvin with Orthopedics performed an ORIF of the right ankle. She had repeat imaging completed on 08/24 and 09-26 which showed healed showed a with good alignment. She was seen on 09/26 in clinic for her 6 week postop appointment and was cleared for full weight-bearing as tolerated. Yesterday 10/11 the patient states that her right ankle exploded with bloody drainage. She states she was told by Dr. Calvin to call if she had concerns for infection but she states she did not take him for his word as she did not think it would be possible for the ankle to become infected as she had surgery and the incision was healed. The patient states her ankle has been becoming more red an
[2023-10-17] MEDS: VITAMIN B COMPLEX CAPSULE 1 CAP PO (09:03)
[2023-10-17] MEDS: rOPINIRole HCL 1 MG TABLET 4 MG PO (09:03)
[2023-10-17] MEDS: ASPIRIN 81 MG ENTERIC TABLET PO (09:03)
[2023-10-17] MEDS: PREGABALIN (*CRX) 50 MG CAPSULE 100 MG PO ×2 (09:04→12:21)
[2023-10-17] MEDS: ASCORBIC ACID 500 MG TABLET PO (09:04)
[2023-10-17] MEDS: ARIPiprazole 5 MG TABLET PO (09:04)
[2023-10-17] MEDS: busPIRone HCL 10 MG TABLET 30 MG PO ×2 (09:04→12:21)
[2023-10-17] MEDS: LOSARTAN POTASSIUM 100 MG TABLET PO (09:05)
[2023-10-17] MEDS: TOPIRAMATE 100 MG TABLET PO (09:05)
[2023-10-17] MEDS: MAGNESIUM OXIDE 200 MG TABLET PO (09:05)
[2023-10-17] MEDS: PANTOPRAZOLE 40 MG TABLET PO (09:05)
[2023-10-17] MEDS: DICYCLOMINE HCL 10 MG CAPSULE PO ×2 (09:05→12:21)
[2023-10-17] MEDS: MULTIVITAMINS THERAPEUTIC TAB (*BKC) 1 TABLET PO (09:05)
[2023-10-17 09:06] VITALS: PULSE 73
[2023-10-17] MEDS: amLODIPine BESYLATE 10 MG TABLET PO (09:06)
[2023-10-17] MEDS: CHOLECALCIFEROL 1,000 UNITS TABLET 1000 UNITS PO (09:06)
[2023-10-17] MEDS: PROPRANOLOL HCL 60 MG CAPSULE CR 120 MG PO (09:06)
[2023-10-17] MEDS: TOLNAFTATE 1% POWDER 45 GM BTL 1 APPLIC TOPICAL (09:14)
[2023-10-17] MEDS: MICONAZOLE NITRATE 2% CREAM 30 GM TUBE 1 APPLIC TOPICAL (09:14)
[2023-10-17] MEDS: FLUTICASONE PROPIONATE 0.05% NA SPR 16 GM BTL (*BKC) 1 SPRAY NASAL (09:16)
[2023-10-17] MEDS: FENOFIBRATE,MICRONIZED 48 MG TABLET PO (09:17)
[2023-10-17 12:02] LABS: Glucose Point of Care 100 mg/dl (65-105)
--- NOTE | 2023-10-17 13:03 | P.CDI_ITS ---
CDI Query Clarification Request Patient with a BMI of 40.3 please provide a diagnosis to accompany this finding: * Overweight * Obesity * Morbid Obesity * Other/Unknown <Kristen Jay RN - Last Filed: 10/17/23 13:04> Clarified Diagnosis Clarified Diagnosis: obesity <Maryana Ferrera APRN - Last Filed: 10/17/23 13:13>
== END 2023-10-17 13:02 | disposition home or self-care (01) | DRG 721 ==
LOC: ANHED 19:02 → ANH2MED 10-13 01:41
PROVIDERS: Orthopaedic Surgery; Admitting Provider Internal Medicine; Emergency Provider Registered Nurse; PCP Nurse Practitioner; Visit Provider Nurse Practitioner Acute Care
DX: T81.49XA Infection following a procedure, other surgical site, initial encounter (principal); L03.115 Cellulitis of right lower limb; K21.9 Gastro-esophageal reflux disease without esophagitis; E11.9 Type 2 diabetes mellitus without complications; E78.00 Pure hypercholesterolemia, unspecified; J45.909 Unspecified asthma, uncomplicated; M79.7 Fibromyalgia; F32.A Depression, unspecified; F41.9 Anxiety disorder, unspecified; W19.XXXD Unspecified fall, subsequent encounter; S82.61XD Displaced fracture of lateral malleolus of right fibula, subsequent encounter for closed fracture with routine healing; Z79.82 Long term (current) use of aspirin; Z87.891 Personal history of nicotine dependence
CPT/HCPCS: 36415; 71275; 73620; 80048; 80053; 80170; 82565; 82948; 83036; 83605; 83735; 84145; 85025; 85027; 85380; 85610; 85730; 86140; 87040; 87070; 87205; 93971; 96361; 96365; 99285; A9270; G0378; G0379; J1580; J1956; J3370; J7030; Q9967

== ENCOUNTER 2024-05-03 16:08 | Observation (INO) | payer OTHER, SELFPAY ==
[2024-05-03] VITALS (26 sets, daily range): BP systolic 119–168; BP diastolic 72–127; PULSE 71–93; RESP 15–28; TEMP 36.3–36.5; O2SAT 88–100; BMI 37.5
--- NOTE | ~2024-05-03 | CT_ITS ---
EXAMINATION: CT diagnostic chest wo con DATE: 05/03/2024 20:15 INDICATION: History of heart failure TECHNIQUE: Computed tomography (CT) of the chest was performed without intravenous contrast. The dose -length product was 295.74 mGy-cm. Automated exposure control and iterative reconstruction technique were employed. COMPARISON: CT dated 10/12/2023 and chest x-ray dated 05/04/2019 FINDINGS: No focal airspace consolidation. No evidence for edema. No endobronchial lesions. No pneumo thorax. No significant pleural or pericardial effusion. The upper abdomen is unremarkable. No suspici ous pulmonary nodules or masses. There is scoliosis. No acute osseous abnormality. IMPRESSION: 1. No acute cardiopulmonary disease. Reviewed, dictated and finalized at location A.
--- NOTE | ~2024-05-03 | US_ITS ---
EXAMINATION:US venous doppler LE BI INDICATION:Calf pain TECHNIQUE: Multiple grayscale, color flow and Doppler images of the right and left lower extremity de ep venous systems were obtained and reviewed. COMPARISON:No prior studies for comparison. FINDINGS: The common femoral, superficial femoral and popliteal veins demonstrate normal respiratory variation, augmentation and compressibility. Color flow is also seen within the posterior tibial, pe roneal, greater saphenous and profunda veins. IMPRESSION: 1: No lower extremity deep venous thrombosis. Reviewed, dictated and finalized at location A.
--- NOTE | ~2024-05-03 | XR_ITS ---
XR chest 1V portable 05/03/2024 16:49 Indication: Shortness of breath Procedure: AP portable chest Comparison: 09/25/2020 Findings: Cardiomegaly with mild interstitial edema. No pleural effusion or pneumothorax. No acute os seous abnormality. Impression: 1: Cardiomegaly with mild interstitial edema. Differential diagnosis includes atypical pneumonia. Reviewed, dictated and finalized at location A. Impression: 1: Cardiomegaly with mild interstitial edema. Differential diagnosis includes a typical pneumonia.
--- OUTSIDE RECORDS SUMMARY | 2024-05-03 16:26 | XMS_ITS | CONTINUITY OF CARE DOCUMENT ---
Author Name aditya burgess Address Unknown Organization [facility] Address [id number] [place] [address] [address] [place] [address] Phone [phone] Care Team Providers Care Boat Loader Name Role Phone Yuriy Pakr MD Unavailable LYNETTE WILKINS MD Unavailable [phone] LYNETTE CUTLER MD Unavailable INSURANCE PROVIDERS Payer name Policy type / Coverage type [place] red [employer] [place] [id number] MEDICAID (2) Medicaid [id number]
--- OUTSIDE RECORDS SUMMARY | 2024-05-03 16:26 | XMS_ITS | Clinical Summary ---
Author Organization [facility] [place] Address [address] [place] [address] Care Team Providers Care Software Business Analyst Name Role Phone Unavailable Primary Care Provider Unavailabl e Source Comments [facility],non-owned Affiliates and Associated Physician Practices is amultiple site organization consisting of ambulatory clinics and hospital sitesin [place], [place], [place] and [place]. This disclosure is being madepursuant to the Care Everywhere program and may not contain all information available regarding this patient. Last updated 17.[facility] [place] Allergies Active Allergy Reactions Criticality Noted Date Comments Penicillins Urticaria Medium Medications * Be aware that medications may not be up to date on this document. Alwaysverify current medications with the patient. Medication Sig Dispensed Refills Start Date End Date Status sulindac (CLINORIL) 150 MG tablet Take 150 mg by mouth 2 times daily Active HYDROcodone-acetaminophen (NORCO) 10-325 MG tablet Take 1 tablet by mouth every 4 hours as needed Active cyclobenzaprine (FLEXERIL) 10 MG tablet Take 10 mg by mouth 3 times daily as needed Active gabapentin (NEURONTIN) 100 MG capsule Take 100 mg by mouth 3 times daily Active busPIRone (BUSPAR) 10 MG tablet Take 10 mg by mouth 3 times daily Active zonisamide (ZONEGRAN) 100 MG capsule Take 100 mg by mouth once daily Active vilazodone (VIIBRYD) 40 MG tablet Take 40 mg by mouth daily with breakfast Active hydrOXYzine hcl (ATARAX) 50 MG tablet Take 50 mg by mouth 4 times daily as needed Active metFORMIN CR 24hr modified (GLUMETZA) 1000 MG (MOD) tablet Take 1,000 mg by mouth daily with dinner Active raNITIdine (ZANTAC) 300 MG capsule Take 300 mg by mouth once daily Active fenofibrate (LOFIBRA) 54 MG tablet Take 54 mg by mouth once daily Take with largest meal of the day. Active propranolol CR 24hr (INDERAL LA) 120 MG capsule Take 120 mg by mouth once daily Active losartan - hydroCHLOROthiazide (HYZAAR) 50-12.5 MG tablet Take 1 tablet by mouth once daily Active levothyroxine (SYNTHROID) 25 MCG tablet Take 25 mcg by mouth daily before breakfast Active Turmeric 500 MG Active Vitamin D, Cholecalciferol, 1000 units CAPS Active Multiple Vitamins-Minerals (MULTIVITAL PO) Active Magnesium 500 MG Active Social History Tobacco Use Types Packs/Day Years Used Date Smoking Tobacco: Never Smokeless Tobacco: Never Alcohol Use Standard Drinks/Week Comments No 0 (1 standard drink = 0.6 oz pur e alcohol) Sex and Gender Information Value Date Recorded Sex Assigned at Not on file Gender Identity Not on file Sexual Orientation Not on file Last Filed Vital Signs Vital Sign Reading Time Taken Comments Blood Pressure 127/91 06/19/2018 2:33 PM CDT Pulse 78 06/19/2018 2:33 PM CDT Temperature - - Respiratory Rate - - Oxygen Saturation - - Inhaled Oxygen Concentration - - Weight 117.9 kg (260 lb) 06/19/2018 2:33 PM CDT Height 167.6 cm (5' 6 ) 06/19/2018 2:33 PM CDT Body Mass Index 41.97 06/19/2018 2:33 PM CDT Plan of Treatment Health Maintenance Due Date Last Done Comments COLOGUARD (AGES 45-75) - COL ON CA SCREENING 1968 COLON MONITORING 1968 COLONOSCOPY - COLON CA SCREENING 1968 CT COLONOGRAPHY - COLON CA SCREENING 1968 Colorectal Cancer Screening 1968 FIT - COLON CA SCREENING 1968 FLEX SIG - COLON CA SCREENING 1968 LIPID TESTING 1968 MAMMOGRAM 1968 PAP SMEAR 1968 HIV SCREENING 02/12/1983 HEPATITIS C SCREENING 02/08/1986 DTAP/TDAP/TD VACCINES (1 - Tdap) 02/12/1987 HEPATITIS B VACCINE (1 of 3 - 19+ 3-dose series) 02/12/1987 PNEUMOCOCCAL VACCINE 50+ (1 of 1 - PCV) 02/12/2018 ZOSTER VACCINE (1 of 2) 02/12/2018 SCREENING FOR DIABETES 06/19/2018 COVID-19 VACCINE (2023-2 5 season) 2023 INFLUENZA VACCINE (#1) 2023 DEPRESSION SCREENING 02/08/2024 HIB VACCINE Aged Out No longer eligi ble based on patient's age to complete this topic HPV VACCINE Aged Out No longer eligi ble based on patient's age to complete this topic MENINGOCOCCAL (Group B) VACC INE SHARED DECISION-MAKING Aged Out No longer eligibl e based on patient's age to complete this topic MENINGOCOCCAL GROUPS A/C/Y/W VACCINE Aged Out No longer eligible b ased on patient's age to complete this topic PNEUMOCOCCAL VACCINE Aged Out No long er eligible based on patient's age to complete this topic
--- OUTSIDE RECORDS SUMMARY | 2024-05-03 16:26 | XMS_ITS | Data Portability ---
[facility] Organization [facility] Address [address] [place] [address] Assessment No assessment recorded. Plan of Treatment Reminders Order Date Submit Date Provider Last Modified By Organization Details Last Modified Time Details Appointments None recorded. Lab SARS CoV 2 RNA (COVID-19) , QL, cotton tipper-PCR, respirator y specimen - cough for one week, denies having any other COVID-19 symptoms. Denies being exposed to pos COVID-19. [address] 2019 020 [facility] (Lab), [facility] [place], [address], 0 12:36:11 CMP, serum or plasma 2016 017 [facility], [address], [address], [place], [address], 7 16:11:49 lipid panel, serum 2016 017 [facility], [address] [facility], [address], [place], [address], 7 16:11:49 Referral pain management referral 2016 017 [facility] Not available 7 19:55:[address] referral - [facility] to schedule [facility] Not [facility] 7 10:55:46 Procedures None recorded. Surgeries None recorded. Imaging None recorded. Medication Orders omeprazole 40 mg capsule,de layed release 2016 017 [id number], [address] [place], [address], 7 16:10:09 lisinopril 20 mg tablet 2016 017 [id number], [address] [place], [address], 12:07:33 Patient TargetsNo targets recorded. Patient Instructions Encounter Date Encounter Id Patient Instructions Last Modified By Organization Details Last Modified Time 03/26/2016 [id number] bipolar disorder: care instructions [facility] Not available 03/26/2016 16:10:17 learning about mood disorders si Not available 03/26/2016 16:10:17 polycystic ovary syndrome: care instructions [facility] Not available 03/26/2016 16:10:17 When You Want to Lose Weight: Care Instructions [facility] Not available 03/26/2016 16:10:17 learning about high blood pressure si Not available 03/26/2016 16:10:17 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 before the moammogram screening. [facility] Not available 03/26/2016 16:31:19 07/23/2019 [id number] Reviewed the following recommendations: -Stay home and separate from others as much as possible. -Monitor your symptoms and seek medical attention for trouble breathing, persistent chest pain, confusion, or bluish lips or face. -Wear a mask if you must be around other people. -Wash your hands often for 20 seconds with soap and water and clean high-touch surfaces daily -You may discontinue home isolation if your symptoms are improving and it has been 10 days since symptoms started. 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 ovaries Patient to schedule Referring Physician: Jill Ramirez, Internal Medicine, Encounter Date: 03/26/2016 Pain Management Referral for Chronic low back pain Referring Physician: Jill Ramirez, Internal Medicine, Encounter Date: 03/26/2016 Results Created Date Observation Date Name Description Value Unit Range Abnormal Flag Note LastModifiedBy Organization Detail LastModifiedTime 07/23/19 20 07/23/2019 SARS CoV 2 RNA (COVI D-19) , QL, cotton tipper-P CR, respi rator y speci men sars - cov - 2 PCR NEGATI VE mL Not Available [facility] (Lab) [address], [place], [address], 08/01/2019 08:06:38 07/23/19 20 07/23/2019 SARS CoV 2 RNA (COVI D-19) , QL, cotton tipper-P CR, respi rator y speci men covidcom1 COMME NTS: This assay is desig jean-pierre to detec t the RdRp and N genes of SARS- CoV-2 using nucle ic acid ampli ficat ion. A negat saray resul t does not precl ude the possi bilit y of 2019- nCoV infec tion since the adequ acy of sampl e colle ction and/o r low viral burde n may resul t in the prese nce of viral nucle ic acids level s below the chloe tical sensi tivit y of this test metho d. Not Available [facility] (Lab) [address], [place], [address], 08/01/2019 08:06:38 07/23/19 20 07/23/2019 SARS CoV 2 RNA (COVI D-19) , QL, cotton tipper-P CR, respi rator y speci men covidcom2 Posit saray resul ts are indic ative of the prese nce of SARS- CoV-2 RNA and do not rule out bacte rial infec tion or co-in fecti on with other virus es. Not Available [facility] (Lab) [address], [place], [address], 08/01/2019 08:06:38 07/23/19 20 07/23/2019 SARS CoV 2 RNA (COVI D-19) , QL, cotton tipper-P CR, respi rator y speci men covidcom3 Test resul ts shoul d be used along with other clini luc obser vatio ns, patie nt histo ry, epide miolo gical infor matio n and labor atory data in [facility] g the diagn osis. Not Available [facility] (Lab) [address] [place], [address], 08/01/2019 08:06:38 07/23/19 20 07/23/2019 SARS CoV 2 RNA (COVI D-19) , QL, cotton tipper-P CR, respi rator y speci men covidcom4 This test has recei oxana FDA Emerg ency Use Autho rizat ion and [facility] . This test is only autho rized for the durat ion of the decla ratio n and the circu mstan jaqueline that exist to justi fy the autho rizat ion of the emerg ency use of in vitro diagn ostic tests for the detec tion of SARS- CoV-2 virus and/o r diagn osis of COVID -19 infec tion under secti on 564 (b) (1) of the Act. 11 U.S.C . 360bb b-3 (b) (1), unles s the autho rizat ion is termi nated or revok ed soone r. Not Available [facility] (Lab) [address], [place], [address], 08/01/2019 08:06:38 07/23/19 20 07/23/2019 SARS CoV 2 RNA (COVI D-19) , QL, cotton tipper-P CR, respi rator y speci men covidcom5 [facility] Labor atory is certi fied under CLIA- 88 as quali fied to perfo rm high compl exity testi ng. This testi ng was perfo rmed in the [facility] [place] [address] (CLIA Licen se #[id number] 5, CAP #[id number], AU-ID #[id number]). Not Available [facility] (Lab) [address], [place], [address], 08/01/2019 08:06:38 07/23/19 20 07/23/2019 SARS CoV 2 RNA (COVI D-19) , QL, cotton tipper-P CR, respi rator y speci men covidcom6 Facts heet for healt hcare provi ders: https ://ww w.fda .gov/ media /1362 56/do wnloa d Facts heet for mirela nts: https ://ww w.fda .gov/ media /1362 57/do wnloa d Not Available [facility] ([facility]) [address] [place], [address], 08/01/2019 08:06:38 Result Notes None recorded. Procedures Surgical History Date Name Laterality Status Provider Name and Address Organization Details Recorded Time Appendectomy completed Ras Rizvi MA [facility] 03/26/2016 14:25:25 Tubal Ligation completed Ras Rizvi MA [facility] 03/26/2016 14:25:32 Removal of ovarian cyst(s) completed Ras Rizvi MA [facility] 03/26/2016 14:26:19 Imaging Results None recorded. Procedure Notes None recorded. Medical Equipment None Reported. Allergies Allergen ID Allergen Name Allergen Category Reaction Reaction Severity Criticality Documentation Date Start Date Code Code System Note Provider Name and Address Organization Details Recorded Time 77333 Product containin g penicilli n (product) medicatio n hives Not available Not available 03/26/2016 35562 8001 SNOMED Not Available Not Available Not Available Medications Name Sig Start Date Stop Date Status Note LastModified by Organization Details LastModified Time losartan 50 mg tablet active Not Available Not Available No t Available cyclobenzapr ine 10 mg tablet Take 1 tablet 3 times a day by oral route. active Not Available Not Available No t Available clonidine HCl 0.1 mg tablet active Not Available Not Available Not Available ranitidine 300 mg tablet active Not Available Not Available Not Available lisinopril 20 mg tablet Take 1 tablet every day by oral route before meals for 30 days. 04/12 completed Not Available Not Available Not Available famotidine 40 mg tablet active Not Available Not Available Not Available metoprolol succinate ER 100 mg tablet,exten ded release 24 hr active Not Available Not Available Not Available venlafaxine ER 150 mg capsule,exte nded release 24 hr active Not Available Not Available Not Available sulindac 150 mg tablet Take 1 tablet twice a day by oral route. active Not Available Not Available No t Available hydroxyzine HCl 50 mg tablet active Not Available Not Available Not Available hydrocodone 10 mg-acetamino phen 325 mg tablet Take 1 tablet every 4 hours by oral route. active Not Available Not Available No t Available omeprazole 40 mg capsule,trista yed release Take 1 capsule every day by oral route before meals for 30 days. 2016 active Not Available Not Available Not Avai lable zonisamide 100 mg capsule Take 1 capsule every day by oral route. active Not Available Not Available No t Available Euthyrox 25 mcg tablet active Not Available Not Available N ot Available famotidine 20 mg tablet active Not Available Not Available Not Available DOK 100 mg capsule active Not Available Not Available Not Available benzonatate 100 mg capsule active Not Available Not Available Not Available erythromycin 5 mg/gram (0.5 %) eye ointment active Not Available Not Available Not Available metformin 1,000 mg tablet Take 1 tablet twice a day by oral route. active Not Available Not Available No t Available Norvasc 5 mg tablet active Not Available Not Available Not Available buspirone 10 mg tablet active Not Available Not Available No t Available montelukast 10 mg tablet Take 1 tablet(s ) every day by oral route. active Not Available Not Available No t Available hydrochlorot hiazide 25 mg tablet active Not Available Not Available No t Available gabapentin 100 mg capsule active Not Available Not Available Not Available propranolol ER 120 mg capsule,24 hr,extended release active Not Available Not Available Not Available estradiol 0.01% (0.1 mg/gram) vaginal cream active Not Available Not Available Not Available zolpidem 10 mg tablet Take 1 tablet every day by oral route. active Not Available Not Available No t Available losartan 50 mg-hydrochlo rothiazide 12.5 mg tablet active Not Available Not Available Not Available propranolol 20 mg tablet Take 1 tablet twice a day by oral route. active Not Available Not Available No t Available fluticasone propionate 50 mcg/actuatio n nasal spray,suspen kaleb active Not Available Not Available Not Available Vitamin D3 25 mcg (1,000 unit) capsule Take by oral route. active Not Available Not Available No t Available aripiprazole 5 mg tablet active Not Available Not Available Not Available topiramate 50 mg tablet active Not Available Not Available Not Available nitrofuranto in monohydrate/ macrocrystal s 100 mg capsule active Not Available Not Available Not Available Effexor active Not Available Not Avail able Not Available B Complex active Not Available Not Raven ilable Not Available Abilify active Not Available Not Avail able Not Available ProAir HFA 90 mcg/actuatio n aerosol inhaler active Not Available Not Available Not Available aripiprazole 2 mg tablet active Not Available Not Available Not Available fenofibrate 54 mg tablet active Not Available Not Available Not Available Viibryd 40 mg tablet active Not Available Not Available No t Available turmeric root extract 500 mg capsule Take by oral route. active Not Available Not Available No t Available ProAir RespiClick 90 mcg/actuatio n breath activated active Not Available Not Available No t Available Vitals Date Recorded Body height Body weight Body mass index (BMI) Body temperature Oxygen saturation Oxygen saturation in Arterial blood by Pulse oximetry Heart rate Systolic blood pressure Diastolic blood pressure Provider Name and Address Organization Details Last Updated DateTime 7 167.64 cm 616167. 11 g 41.6 kg/m2 98.2 [degF] 99 % 99 % 89 /min 156 mm[Hg] 112 mm[Hg] Ras Rizvi MA [facility] 7 14:34:37 Social History Question Answer Notes LastModified by Organizat ion Details LastModified Time Tobacco Smoking Status Former Smoker cigarettes Ras Rizvi MA null, [facility] 03/26/2016 14:29:25 What Is Your Level Of Alcohol Consumption? Occasional Wine @ 1 -2 Glasses Per Month Information not available 03/26/2016 How Many Years Have You Smoked Tobacco? 1 Information not available 03/26/2016 Sex: Unknown Functional Status None recorded. Mental Status None recorded. Family History Relationship Description Onset Age of this Age Resolved Age Notes LastModified by Organization Details LastModified Time Father Depressive disorder Not available 03/26 14:26:50 Father Hypertensive disorder Not available 03/26 14:27:50 Mother Depressive disorder Not available 03/26 14:26:50 Mother Diabetes mellitus Not available 03/26 14:27:00 Mother Hypertensive disorder Not available 03/26 14:27:50 Mother Hypercholest erolemia Not available 03/26 14:28:10 Mother Migraine Not availab le 03/26/2016 14:28:35 Sister Depressive disorder Not available 03/26 14:26:50 Sister Hypertensive disorder Not available 03/26 14:27:50 Sister Hypercholest erolemia Not available 03/26 14:28:10 Sister Migraine Not availab le 03/26/2016 14:28:35 Notes:Neuropathy (Mother) Medical History Condition Response High Blood Pressure Y Depression Y Anxiety Disorder Y Muscle, Joint, or Bone Problems Y Acid Reflux (GERD) Y High Cholesterol Y Headaches Y Asthma Y Allergies Y Gynecological HistoryNo gynecological history recorded. Obstetrics History GPAL:G 0 P 0 0 0 0 Past Encounters Encounter ID Performer Location Encounter Start Date Encounter Closed Date Diagnosis/Indication Diagnosis SNOMED-CT Code Diagnosis ICD10 Code Diagnosis Note [id number] [facility] [address] [place] [phone] 03/26/2016 13:59:19 03/26/2016 16:16:17 Vitamin D deficiency 52761914 E55.9 sHE IS ON otc CALCIUM/ TAMIN DAILY. Bipolar disorder 1618390 4 F31.9 sHE HAS SEEN A psychiatri st [place] [facility] Polycystic ovaries 88456 008 E28.2 oN mETFORMIN 1000 MG TWICE /DAY FROM HER GYNECOLOGI ST. Essential hypertension 61759219 I10 History of gastroesophageal reflux disease 0600009266 9106 Z87.19 Acid reflux 562233102 K2 1.9 Chronic low back pain 27 7463656 M54.5 Morbid obesity 868849668 E66.01 Adult heal th examination 348144114 Z00.01 [id number] KATERINA [facility] [place] [address] [place] [address] 07/23/2019 12:57:17 07/24/2019 11:22:50 Suspected COVID-19 607401766 Z03.818 D/w pt the current pandemic of COVID-19 and call for social isolation in order to blunt the curve and minimize risk and spread. Encouraged patient and family to take restrictio ns seriously. They have verbalized understand ing of such. Viral syndrome 267176117 B34.9 Health Concerns Section Related Observation LastModified by Organization Detai ls LastModified Time None Recorded Concern Status LastModified by Organization Details LastModified Time None Recorded Advance Directives Directive None Recorded Payers Encounter Date Sequence Insurance Name Policy Number Policy Yun Covered Member ID Yun Member ID Guarantor Name 03/26/2016 1 [facility] [id number] Amrita R Orahood [id number] Amrita R Orahood 03/26/2016 2 [place] [employer] Amrita R Orahood [id number] Amrita R Orahood 07/23/2019 1 [facility] [id number] Amrita R Orahood [id number] Amrita R Orahood 07/23/2019 2 MED[place]: [employer] Amrita R Orahood [id number] Amrita R Orahood Notes Date Note Type Note Provider Name and Address Organization Details Recorded Time 07/23/2019 text/html COVID ScreeningReported bypatient.Associated Symptoms:cough ComorbiditiesHeart Disease(HTN)COVID-19 Symptoms April 2019Reported bypatient.COVID-19 Signs and Symptomscough worsening; fever resolved; shortness of breath resolved Quality:dry cough Context:chronic bronchitis Associated Symptoms:no sputum production; no shortness of breath; no wheezing; no fever; no runny nose; no sore throat; no vomiting; no diarrhea; no body aches; no nausea; no change in mental status; no hypotension; no tachycardia 49 yo female ,spoke via phone with C/O, cough for one week, denies having any other COVID-19 symptoms. Denies being exposed to pos COVID-19. ZACHARY Diaz NP Attn: Accounting,[address], [place], [address], [facility] 07/23/2019 14:15:23 OBGyn Episode No OBEpisode recorded.
--- NOTE | 2024-05-03 16:35 | ECG_ITS ---
Test Date: 2024-05-03 16:41:53 Measurements Intervals Luck Rate: 70 P: 57 RI: 156 QRS: -71 QRSD: 94 T: -59 QT: 383 QTc: 415 Interpretive Statements SINUS RHYTHM POSSIBLE LEFT ATRIAL ENLARGEMENT [-0.1mV P WAVE IN V1/V2] MARKED LEFT AXIS DEVIATION [QRS AXIS < -30] SEPTAL MYOCARDIAL INFARCTION , OF INDETERMINATE AGE [40+ ms Q WAVE IN V1/V2] MODERATE T-WAVE ABNORMALITY, CONSIDER ANTEROLATERAL ISCHEMIA [-0.1+ mV T WAVE IN V3-V6] MODERATE T-WAVE ABNORMALITY, CONSIDER INFERIOR ISCHEMIA [-0.1+ mV T WAVE IN II/aVF] Compared to ECG 08/12/2023 06:56:19 NO SIGNIFICANT CHANGES Electronically Signed On 05-04-2024 10:39:43 CDT by Jaymie Ricks M.D.
--- OUTSIDE RECORDS SUMMARY | 2024-05-03 16:49 | XMS_ITS | Clinical Summary ---
Author Organization [facility] [place] Address [address] [place] [address] Care Team Providers Care Shock Absorber Installer Name Role Phone Unavailable Primary Care Provider Unavailabl e Source Comments [facility],non-owned Affiliates and Associated Physician Practices is amultiple site organization consisting of ambulatory clinics and hospital sitesin [place], [place], [place] and [place]. This disclosure is being madepursuant to the Care Everywhere program and may not contain all information available regarding this patient. Last updated 17.[facility] Allergies Active Allergy Reactions Criticality Noted Date [...]
--- OUTSIDE RECORDS SUMMARY | 2024-05-03 16:49 | XMS_ITS | CONTINUITY OF CARE DOCUMENT ---
Author Name aditya burgess Address Unknown Organization [facility] Address [address] [place] [address] [address] [place] [address] Phone [phone] Care Team Providers Care Customer Experience Strategist Name Role Phone Yuriy Park MD Unavailable LYNETTE WILKINS MD Unavailable LYNETTE CUTLER MD Unavailable [phone] INSURANCE PROVIDERS Payer name Policy type / Coverage type [place] red [place] MEDICAID (2) Medicaid [id number]
[2024-05-03 16:53] LABS: Basophils Absolute Auto 0.1 K/mm3 (0.0-0.1); Basophils Percent Auto 0.8 % (0.2-1.2); Eosinophils Absolute Auto 0.3 K/mm3 (0-0.3); Hematocrit 45.7 % (37.0-47.0); Hemoglobin 14.9 g/dL (12.0-15.0); Immature Granulocyte Absolute 0.02 K/mm3 (0.00-0.031); Immature Granulocyte Percent A 0.2 % (0-0.5); Lymphocytes Absolute Auto 4.04 K/mm3 (0.9-3.2); Lymphocytes Percent Auto 44.8 % (18.3-44.2); Mean Corpuscular HGB Conc 32.6 g/dl (32-36); Mean Corpuscular Hemoglobin 28.9 pg (26-34); Mean Corpuscular Volume 88.6 fl (80-100); Mean Platelet Volume 11.7 fl (7.4-10.4); Monocytes Absolute Auto 0.6 K/mm3 (0.1-0.6); Monocytes Percent Auto 6.5 % (2.6-8.5); Neutrophils Percent Auto 44.7 % (45.5-73.1); Platelet Count Result 306 k/mm3 (150-375); Red Blood Count 5.16 M/mm3 (4.2-5.4); Red Cell Distribution Width 14.2 % (11.5-14.5)
[2024-05-03 17:06] LABS: Alanine Aminotransferase 17 U/L (6-35); Albumin Level 4.3 g/dL (3.5-5.1); Alkaline Phosphatase 41 U/L (38-126); Anion Gap 14 mmol/L (4-12); Aspartate Amino Transferase 31 U/L (14-36); Bilirubin,Total 0.6 mg/dL (0.2-1.3); Blood Urea Nitrogen 23 mg/dL (7-17); Calcium 10.2 mg/dL (8.4-10.2); Carbon Dioxide 19 mmol/L (22-30); Chloride 113 mmol/L (98-107); Estimated CRCL calculation 48 ml/min; Estimated Glomerular Filt Rate 38; Glucose 105 mg/dL (65-110); Sodium 146 mmol/L (137-145)
[2024-05-03 17:29] LABS: Influenza A QL RT-PCR Negative (Negative); Influenza B QL RT-PCR Negative (Negative); RSV RNA, RT-PCR Negative (Negative); SARS-CoV-2 RNA PCR Negative (Negative)
--- NOTE | 2024-05-03 17:56 | PC.NURSE ---
patient placed on 2L NC - while sleeping her spo2 dropped into the 80s. pt states that she is supposed to wear cpap when she sleeps
--- NOTE | 2024-05-03 18:07 | ED_ITS ---
HPI - General Adult General Chief complaint: Shortness of Breath/Dyspnea <Jerry Rodriguez MD - Last Filed: 05/03/24 19:10> Stated complaint: SOB <Jerry Rodriguez MD - Last Filed: 05/03/24 19:10> Time Seen by Provider: 05/03/24 16:39 <Jerry Rodriguez MD - Last Filed: 05/03/24 19:10> History of Present Illness HPI narrative: This is a 54-year-old female presenting shortness of breath times several months. Patient says that she is becoming winded more easily when she walks. Is got progressively worse in the last month. She states that she has trouble laying flat at night. She has not noticed any swelling of her lower extremities. She denies any history of heart failure. She denies fevers chills or productive cough. No sick contacts at home. Patient has obstructive sleep apnea. She is not consistently wear her BiPAP. < Jerry Rodriguez MD - Last Filed: 05/03/24 19:10> Related Data Home medications: Home Medications ?Medication ?Instructions ?Recorded ?Confirmed ?Last Taken ?Type fenofibrate 54 mg tablet 54 mg PO DAILY 09/25/20 01/18/24 Unknown History hydroxyzine HCl 50 mg tablet 50 mg PO BID PRN Anxiety 09/25/20 01/18/24 Unknown History levothyroxine 25 mcg tablet 25 mcg PO DAILY 09/25/20 01/18/24 Unknown History (Euthyrox) metformin 1,000 mg tablet 1,000 mg PO BID 09/25/20 01/18/24 Unknown History omeprazole 40 mg capsule,delayed 40 mg PO DAILY 09/25/20 01/18/24 Unknown History release propranolol 120 mg capsule,24 120 mg PO DAILY 09/25/20 01/18/24 Unknown History hr,extended release topiramate 50 mg tablet 100 mg PO BID 09/25/20 01/18/24 Unknown History vilazodone 40 mg tablet (Viibryd) 40 mg PO HS 09/25/20 01/18/24 Unknown History amlodipine 10 mg tablet 10 mg PO DAILY 01/07/22 01/18/24 Unknown History metoclopramide HCl 10 mg tablet 10 mg PO BID 01/07/22 01/18/24 Unknown History ropinirole 1 mg tablet 4 mg PO DAILY 01/07/22 01/18/24 Unknown History buspirone 30 mg tablet 30 mg PO TID 01/11/23 01/18/24 Unknown History albuterol sulfate 90 mcg/actuation 1 inh inhalation Q4H PRN Dyspnea 08/09/23 01/18/24 Unknown History aerosol inhaler aripiprazole 5 mg tablet 5 mg PO DAILY 08/09/23 01/18/24 Unknown History dicyclomine 10 mg capsule 10 mg PO TID 08/09/23 01/18/24 Unknown History fluticasone propionate 50 1 spray intranasal DAILY 08/09/23 01/18/24 Unknown History mcg/actuation nasal spray,suspension (Flonase Allergy Relief) pregabalin 100 mg capsule 100 mg PO TID 08/09/23 01/18/24 Unknown History trazodone 50 mg tablet 50 mg PO QHS PRN Insomnia 08/09/23 01/18/24 Unknown History ascorbic acid (vitamin C) 500 mg 500 mg PO DAILY 08/10/23 01/18/24 Unknown History tablet (Vitamin C) cholecalciferol (vitamin D3) 25 25 mcg PO DAILY 08/10/23 01/18/24 Unknown History mcg (1,000 unit) capsule (Vitamin D3) multivitamin 1 tablet PO DAILY 08/10/23 01/18/24 Unknown History vitamin B complex 1 tablet PO DAILY 08/10/23 01/18/24 Unknown History biotin 1,000 mcg chewable tablet 1,000 mcg PO DAILY 10/13/23 01/18/24 Unknown History aspirin 81 mg tablet,delayed 81 mg PO DAILY 11/08/23 01/18/24 Unknown History release magnesium 250 mg tablet 250 mg PO DAILY 01/18/24 01/18/24 Unknown History <Jerry Rodriguez MD - Last Filed: 05/03/24 19:10> Allergies/adverse reactions: Allergies Allergy/AdvReac Type Severity Reaction Status Date / Time Penicillins Allergy Unknown Rash Verified 01/18/24 11:14 <Jerry Rodriguez MD - Last Filed: 05/03/24 19:10> [facility] Past Medical History Medical History: Medical History Vaginal delivery x2 Fibromyalgia Asthma Disorder of thyroid Anxiety High cholesterol Acid reflux <Jerry Rodriguez MD - Last Filed: 05/03/24 19:10> Surgical History Surgical History: Surgical History H/O removal of cyst tailbone History of colposcopy History of appendectomy H/O tubal ligation <Jerry Rodriguez MD - Last Filed: 05/03/24 19:10> Family History Family History: Family History Mother Diabetes mellitus Hypertension Hyperlipidemia DVT (deep venous thrombosis) Father Hyperlipidemia Hypertension ALS (amyotrophic lateral sclerosis) Sibling , MVC No problems noted. Sibling No problems noted. <Jerry Rodriguez MD - Last Filed: 05/03/24 19:10> Social History Social History: Social History Social History: Patient lives with her Jaun mendenhallates as her emergency contact. She is disabled and does not work. She has 2 living children. she reports smoking in the past but stopped 20 years ago. Smoking status: Former smoker Tobacco type: cigarettes Second hand tobacco smoke exposure: Yes Alcohol intake: never Substance use: never Substance use type: does not use Do You Feel Safe in your Home?: Yes Lack of Transportation: No Lack of Food: Never True Current Housing: I Have Housing Concerned About Future Housing: No Difficulty Paying Gas/Electric Bills: No Difficulty Paying for Meds: No Currently Unemployed: Decline to Answer Education: High School Diploma/GED Difficulty w/ Childcare or Family Care: No Living arrangements: with family Occupation/Education: unemployed Additional occupation/education comments: disabled Gender identity (if verbalized by the patient): Female Spiritual care concerns: No <Jerry Rodriguez MD - Last Filed: 05/03/24 19:10> Exam 2 Narrative: APPEARANCE: No apparent distress. Head: atraumatic. EYES: EOMI, NOSE: Atraumatic NECK: Trachea midline RESPIRATORY: Hypoxic, tachypneic, clear lung sounds CARDIOVASCULAR: RRR, subtle pitting edema lower extremities due to body habitus ABDOMINAL: Non-distended obese MUSCULOSKELETAl: No obvious deformities NEURO: Alert. Moving 4/4 extremities SKIN:: Warm, dry. Normal color PSYCHIATRIC: Normal affect <Jerry Rodriguez MD - Last Filed: 05/03/24 19:10> Course Course Emergency Course: Patient signed out to me pending some of her workup. She has reportedly had 3 months of progressive dyspnea and there was concern for acute heart failure based on her elevated BNP and questionable findings on chest x-ray. She was pending a D-dimer. Given it was normal, proceeded with CT imaging but not CTA. Findings as below. Patient is to requiring supplemental oxygen. Patient assessed at bedside by myself approximately 9:00 p.m.. She is resting comfortably but still requiring supplemental oxygen via nasal cannula. Lungs clear to auscultation. Discussed the need for admission for further workup and she verifies understanding is in agreement. Discussed with on-call hospitalist BK Graham. Holding/bridge orders placed to include an echo for further work up. Otherwise stable. <Riri Brown MD - Last Filed: 05/03/24 21:10> Vital Signs Vital signs: Vital Signs Temperature 97.7 F 05/03/24 16:19 Pulse Rate 75 05/03/24 16:19 Respiratory Rate 24 H 05/03/24 16:19 Blood Pressure 129/81 05/03/24 16:19 Pulse Oximetry 96 05/03/24 16:19 Oxygen Delivery Room Air 05/03/24 16:19 Temperature 97.6 F 05/03/24 16:45 Pulse Rate 77 05/03/24 20:31 Respiratory Rate 18 05/03/24 20:31 Blood Pressure 146/127 H 05/03/24 20:31 Pulse Oximetry 96 05/03/24 20:31 Oxygen Delivery Room Air 05/03/24 17:52 <Jerry Rodriguez MD - Last Filed: 05/03/24 19:10> Vital Signs Temperature 97.7 F 05/03/24 16:19 Pulse Rate 75 05/03/24 16:19 Respiratory Rate 24 H 05/03/24 16:19 Blood Pressure 129/81 05/03/24 16:19 Pulse Oximetry 96 05/03/24 16:19 Oxygen Delivery Room Air 05/03/24 16:19 Temperature 97.6 F 05/03/24 16:45 Pulse Rate 77 05/03/24 20:31 Respiratory Rate 18 05/03/24 20:31 Blood Pressure 146/127 H 05/03/24 20:31 Pulse Oximetry 96 05/03/24 20:31 Oxygen Delivery Room Air 05/03/24 17:52 <Riri Brown MD - Last Filed: 05/03/24 21:10> Medical Decision Making MDM Narrative Medical decision making narrative: -Course: 54-year-old female presenting with progressively worse shortness of breath over the last 3 months. Patient was hypoxic 88 on RA requiring 2 L of supplemental oxygen. Patient signed out to the oncoming physician pending completion of her workup. Patient will require admission hospital for hypoxic respiratory failure. <Jerry Rodriguez MD - Last Filed: 05/03/24 19:10> Vital Signs Vital Signs: Vital Signs Temperature 97.7 F 05/03/24 16:19 Pulse Rate 75 05/03/24 16:19 Respiratory Rate 24 H 05/03/24 16:19 Blood Pressure 129/81 05/03/24 16:19 Pulse Oximetry 96 05/03/24 16:19 Oxygen Delivery Room Air 05/03/24 16:19 Temperature 97.6 F 05/03/24 16:45 Pulse Rate 77 05/03/24 20:31 Respiratory Rate 18 05/03/24 20:31 Blood Pressure 146/127 H 05/03/24 20:31 Pulse Oximetry 96 05/03/24 20:31 Oxygen Delivery Room Air 05/03/24 17:52 <Jerry Rodriguez MD - Last Filed: 05/03/24 19:10> Vital Signs Temperature 97.7 F 05/03/24 16:19 Pulse Rate 75 05/03/24 16:19 Respiratory Rate 24 H 05/03/24 16:19 Blood Pressure 129/81 05/03/24 16:19 Pulse Oximetry 96 05/03/24 16:19 Oxygen Delivery Room Air 05/03/24 16:19 Temperature 97.6 F 05/03/24 16:45 Pulse Rate 77 05/03/24 20:31 Respiratory Rate 18 05/03/24 20:31 Blood Pressure 146/127 H 05/03/24 20:31 Pulse Oximetry 96 05/03/24 20:31 Oxygen Delivery Room Air 05/03/24 17:52 <Riri Brown MD - Last Filed: 05/03/24 21:10> Lab Data Lab results reviewed: Yes I reviewed the patient's lab results. <Riri Brown MD - Last Filed: 05/03/24 21:10> Lab results narrative: Elevated BNP; dimer WNL <Riri Brown MD - Last Filed: 05/03/24 21:10> Result diagrams: 05/03/24 16:44 05/03/24 16:44 <Jerry Rodriguez MD - Last Filed: 05/03/24 19:10> Labs: Lab Results 05/03/24 05/03/24 05/03/24 Range/Units 16:43 16:44 19:18 WBC 9.0 (4.5-10.0) K/mm3 RBC 5.16 (4.2-5.4) M/mm3 Hgb 14.9 (12.0-15.0) g/dL Hct 45.7 (37.0-47.0) % MCV 88.6 (80-100) fl MCH 28.9 (26-34) pg MCHC 32.6 (32-36) g/dl RDW 14.2 (11.5-14.5) % Plt Count 306 (150-375) k/mm3 MPV 11.7 H (7.4-10.4) fl Immature Gran % (Auto) 0.2 (0-0.5) % Neut % (Auto) 44.7 L (45.5-73.1) % Lymph % (Auto) 44.8 H (18.3-44.2) % [place] % (Auto) 6.5 (2.6-8.5) % Eos % (Auto) 3.0 (0-4.4) % Baso % (Auto) 0.8 (0.2-1.2) % Lymph # (Auto) 4.04 H (0.9-3.2) K/mm3 [place] # (Auto) 0.6 (0.1-0.6) K/mm3 Eos # (Auto) 0.3 (0-0.3) K/mm3 Baso # (Auto) 0.1 (0.0-0.1) K/mm3 Abs Immat Gran (auto) 0.02 (0.00-0.031) K/mm3 Absolute Neuts (auto) 4.0 (1.3-6.7) K/mm3 Absolute Nucleated RBC 0.000 (0.0-0.012) K/mm3 Nucleated RBC % 0.0 (0.0-0.2) % D-Dimer < 0.27 (<0.48) ug/mL Sodium 146 H (137-145) mmol/L Potassium 4.0 (3.4-5.0) mmol/L Chloride 113 H (98-107) mmol/L Carbon Dioxide 19 L (22-30) mmol/L Anion Gap 14 H (4-12) mmol/L BUN 23 H D (7-17) mg/dL Creatinine 1.44 H (0.7-1.0) mg/dL Estim Creat Clear Calc 48 ml/min Estimated GFR 38 L (59 - ) Glucose 105 (65-110) mg/dL Calcium 10.2 (8.4-10.2) mg/dL Total Bilirubin 0.6 (0.2-1.3) mg/dL AST 31 (14-36) U/L ALT 17 (6-35) U/L Alkaline Phosphatase 41 (38-126) U/L Troponin I < 0.012 (0.000-0.034) ng/mL NT-Pro-B Natriuret Pep 1750 H (19.9-100) pg/mL Total Protein 8.0 (6.3-8.2) g/dL Albumin 4.3 (3.5-5.1) g/dL Influenza A (RT-PCR) Negative (Negative) Influenza B (RT-PCR) Negative (Negative) RSV (RT-PCR) Negative (Negative) SARS-CoV-2 RNA (RT-PCR) Negative (Negative) 05/03/24 Range/Units 20:24 WBC (4.5-10.0) K/mm3 RBC (4.2-5.4) M/mm3 Hgb (12.0-15.0) g/dL Hct (37.0-47.0) % MCV (80-100) fl MCH (26-34) pg MCHC (32-36) g/dl RDW (11.5-14.5) % Plt Count (150-375) k/mm3 MPV (7.4-10.4) fl Immature Gran % (Auto) (0-0.5) % Neut % (Auto) (45.5-73.1) % Lymph % (Auto) (18.3-44.2) % [place] % (Auto) (2.6-8.5) % Eos % (Auto) (0-4.4) % Baso % (Auto) (0.2-1.2) % Lymph # (Auto) (0.9-3.2) K/mm3 [place] # (Auto) (0.1-0.6) K/mm3 Eos # (Auto) (0-0.3) K/mm3 Baso # (Auto) (0.0-0.1) K/mm3 Abs Immat Gran (auto) (0.00-0.031) K/mm3 Absolute Neuts (auto) (1.3-6.7) K/mm3 Absolute Nucleated RBC (0.0-0.012) K/mm3 Nucleated RBC % (0.0-0.2) % D-Dimer (<0.48) ug/mL Sodium (137-145) mmol/L Potassium (3.4-5.0) mmol/L Chloride (98-107) mmol/L Carbon Dioxide (22-30) mmol/L Anion Gap (4-12) mmol/L BUN (7-17) mg/dL Creatinine (0.7-1.0) mg/dL Estim Creat Clear Calc ml/min Estimated GFR (59 - ) Glucose (65-110) mg/dL Calcium (8.4-10.2) mg/dL Total Bilirubin (0.2-1.3) mg/dL AST (14-36) U/L ALT (6-35) U/L Alkaline Phosphatase (38-126) U/L Troponin I < 0.012 (0.000-0.034) ng/mL NT-Pro-B Natriuret Pep (19.9-100) pg/mL Total Protein (6.3-8.2) g/dL Albumin (3.5-5.1) g/dL Influenza A (RT-PCR) (Negative) Influenza B (RT-PCR) (Negative) RSV (RT-PCR) (Negative) SARS-CoV-2 RNA (RT-PCR) (Negative) <Jerry Rodriguez MD - Last Filed: 05/03/24 19:10> Lab Results 05/03/24 05/03/24 05/03/24 Range/Units 16:43 16:44 19:18 WBC 9.0 (4.5-10.0) K/mm3 RBC 5.16 (4.2-5.4) M/mm3 Hgb 14.9 (12.0-15.0) g/dL Hct 45.7 (37.0-47.0) % MCV 88.6 (80-100) fl MCH 28.9 (26-34) pg MCHC 32.6 (32-36) g/dl RDW 14.2 (11.5-14.5) % Plt Count 306 (150-375) k/mm3 MPV 11.7 H (7.4-10.4) fl Immature Gran % (Auto) 0.2 (0-0.5) % Neut % (Auto) 44.7 L (45.5-73.1) % Lymph % (Auto) 44.8 H (18.3-44.2) % [place] % (Auto) 6.5 (2.6-8.5) % Eos % (Auto) 3.0 (0-4.4) % Baso % (Auto) 0.8 (0.2-1.2) % Lymph # (Auto) 4.04 H (0.9-3.2) K/mm3 [place] # (Auto) 0.6 (0.1-0.6) K/mm3 Eos # (Auto) 0.3 (0-0.3) K/mm3 Baso # (Auto) 0.1 (0.0-0.1) K/mm3 Abs Immat Gran (auto) 0.02 (0.00-0.031) K/mm3 Absolute Neuts (auto) 4.0 (1.3-6.7) K/mm3 Absolute Nucleated RBC 0.000 (0.0-0.012) K/mm3 Nucleated RBC % 0.0 (0.0-0.2) % D-Dimer < 0.27 (<0.48) ug/mL Sodium 146 H (137-145) mmol/L Potassium 4.0 (3.4-5.0) mmol/L Chloride 113 H (98-107) mmol/L Carbon Dioxide 19 L (22-30) mmol/L Anion Gap 14 H (4-12) mmol/L BUN 23 H D (7-17) mg/dL Creatinine 1.44 H (0.7-1.0) mg/dL Estim Creat Clear Calc 48 ml/min Estimated GFR 38 L (59 - ) Glucose 105 (65-110) mg/dL Calcium 10.2 (8.4-10.2) mg/dL Total Bilirubin 0.6 (0.2-1.3) mg/dL AST 31 (14-36) U/L ALT 17 (6-35) U/L Alkaline Phosphatase 41 (38-126) U/L Troponin I < 0.012 (0.000-0.034) ng/mL NT-Pro-B Natriuret Pep 1750 H (19.9-100) pg/mL Total Protein 8.0 (6.3-8.2) g/dL Albumin 4.3 (3.5-5.1) g/dL Influenza A (RT-PCR) Negative (Negative) Influenza B (RT-PCR) Negative (Negative) RSV (RT-PCR) Negative (Negative) SARS-CoV-2 RNA (RT-PCR) Negative (Negative) 05/03/24 Range/Units 20:24 WBC (4.5-10.0) K/mm3 RBC (4.2-5.4) M/mm3 Hgb (12.0-15.0) g/dL Hct (37.0-47.0) % MCV (80-100) fl MCH (26-34) pg MCHC (32-36) g/dl RDW (11.5-14.5) % Plt Count (150-375) k/mm3 MPV (7.4-10.4) fl Immature Gran % (Auto) (0-0.5) % Neut % (Auto) (45.5-73.1) % Lymph % (Auto) (18.3-44.2) % [place] % (Auto) (2.6-8.5) % Eos % (Auto) (0-4.4) % Baso % (Auto) (0.2-1.2) % Lymph # (Auto) (0.9-3.2) K/mm3 [place] # (Auto) (0.1-0.6) K/mm3 Eos # (Auto) (0-0.3) K/mm3 Baso # (Auto) (0.0-0.1) K/mm3 Abs Immat Gran (auto) (0.00-0.031) K/mm3 Absolute Neuts (auto) (1.3-6.7) K/mm3 Absolute Nucleated RBC (0.0-0.012) K/mm3 Nucleated RBC % (0.0-0.2) % D-Dimer (<0.48) ug/mL Sodium (137-145) mmol/L Potassium (3.4-5.0) mmol/L Chloride (98-107) mmol/L Carbon Dioxide (22-30) mmol/L Anion Gap (4-12) mmol/L BUN (7-17) mg/dL Creatinine (0.7-1.0) mg/dL Estim Creat Clear Calc ml/min Estimated GFR (59 - ) Glucose (65-110) mg/dL Calcium (8.4-10.2) mg/dL Total Bilirubin (0.2-1.3) mg/dL AST (14-36) U/L ALT (6-35) U/L Alkaline Phosphatase (38-126) U/L Troponin I < 0.012 (0.000-0.034) ng/mL NT-Pro-B Natriuret Pep (19.9-100) pg/mL Total Protein (6.3-8.2) g/dL Albumin (3.5-5.1) g/dL Influenza A (RT-PCR) (Negative) Influenza B (RT-PCR) (Negative) RSV (RT-PCR) (Negative) SARS-CoV-2 RNA (RT-PCR) (Negative) <Riri Brown MD - Last Filed: 05/03/24 21:10> ABG Data ABG results: 05/03/24 18:20 VBG pH 7.339 VBG pCO2 46.1 VBG pO2 < 27.0 L VBG HCO3 24.3 O2 Delivery Device Nasal cannula O2 Liters/Min 1.0 FiO2 24 <Jerry Rodriguez MD - Last Filed: 05/03/24 19:10> 05/03/24 18:20 VBG pH 7.339 VBG pCO2 46.1 VBG pO2 < 27.0 L VBG HCO3 24.3 O2 Delivery Device Nasal cannula O2 Liters/Min 1.0 FiO2 24 <Riri Brown MD - Last Filed: 05/03/24 21:10> Imaging Data Attestation: I personally reviewed and interpreted this imaging study as follows: < Riri Brown MD - Last Filed: 05/03/24 21:10> My impression: Left sided diffuse haziness without specific lobar infiltrate <Riri Brown MD - Last Filed: 05/03/24 21:10> Radiologist's impression: Impressions Chest X-Ray 05/03/24 16:51 Impression: 1: Cardiomegaly with mild interstitial edema. Differential diagnosis includes atypical pneumonia. Chest CT 05/03/24 20:22 IMPRESSION: 1. No acute cardiopulmonary disease. <Riri Brown MD - Last Filed: 05/03/24 21:10> ECG Data EKG #1: Attestation: I personally reviewed and interpreted this ECG as follows: < Riri Brown MD - Last Filed: 05/03/24 21:10> ECG completion date: 05/03/24 <Riri Brown MD - Last Filed: 05/03/24 21:10> ECG completion time: 16:41 <Riri Brown MD - Last Filed: 05/03/24 21:10> Prior ECG tracings: available for review <Riri Brown MD - Last Filed: 05/03/24 21:10> Interpretation: Normal sinus rhythm at a rate of 70 beats per minute. PA interval 156. QRS 94. QT/QTC 383/404. Diffuse T-wave inversions throughout. T-waves were flat an EKG from 08/12/2023 in inferior leads 3 and AVF. There were inversions verses biphasic T-waves in V3 through V6 at that time <Riri Brown MD - Last Filed: 05/03/24 21:10> Discharge Plan Discharge Clinical Impression: Hypoxic respiratory failure <Jerry Rodriguez MD - Last Filed: 05/03/24 19:10> Patient Disposition: Still a Patient <Jerry Rodriguez MD - Last Filed: 05/03/24 19:10> Condition: Stable <Jerry Rodriguez MD - Last Filed: 05/03/24 19:10> Patient Language: Montserratian <Jerry Rodriguez MD - Last Filed: 05/03/24 19:10> Prescriptions: No Action magnesium 250 mg tablet 250 mg PO DAILY amlodipine 10 mg tablet 10 mg PO DAILY metoclopramide HCl 10 mg tablet 10 mg PO BID pregabalin 100 mg capsule 100 mg PO TID dicyclomine 10 mg capsule 10 mg PO TID fluticasone propionate [Flonase Allergy Relief] 50 mcg/actuation spray,suspension 1 spray intranasal DAILY Rx Instructions: administer into each nostril aripiprazole 5 mg tablet 5 mg PO DAILY trazodone 50 mg tablet 50 mg PO QHS PRN (Reason: Insomnia) albuterol sulfate 90 mcg/actuation HFA aerosol inhaler 1 inh inhalation Q4H PRN (Reason: Dyspnea) aspirin 81 mg tablet,delayed release (DR/EC) 81 mg PO DAILY hydroxyzine HCl 50 mg tablet 50 mg PO BID PRN (Reason: Anxiety) omeprazole 40 mg capsule,delayed release(DR/EC) 40 mg PO DAILY levothyroxine [Euthyrox] 25 mcg tablet 25 mcg PO DAILY metformin 1,000 mg tablet 1,000 mg PO BID fenofibrate 54 mg tablet 54 mg PO DAILY propranolol 120 mg capsule,extended release 24 hr 120 mg PO DAILY topiramate 50 mg tablet 100 mg PO BID vilazodone [Viibryd] 40 mg tablet 40 mg PO HS ropinirole 1 mg tablet 4 mg PO DAILY buspirone 30 mg tablet 30 mg PO TID losartan 100 mg tablet 100 mg PO DAILY 7 Days Qty: 7 0RF multivitamin Tablet 1 tablet PO DAILY ascorbic acid (vitamin C) [Vitamin C] 500 mg Tablet 500 mg PO DAILY vitamin B complex Tablet 1 tablet PO DAILY cholecalciferol (vitamin D3) [Vitamin D3] 25 mcg (1,000 unit) Capsule 25 mcg PO DAILY biotin 1,000 mcg Tablet,Chewable 1,000 mcg PO DAILY hydrocodone-acetaminophen 5-325 mg Tablet 1 tablet PO Q4H PRN (Reason: Pain Rated 7-10) Qty: 10 0RF nystatin 100,000 unit/gram cream 1 applic topical BID Qty: 30 0RF Rx Instructions: apply a thin layer to affect areas twice daily for rash. (groin) nystatin 100,000 unit/gram powder 1 applic topical DAILY Qty: 30 0RF Rx Instructions: apply a thin layer to groin and beneath breasts daily to prevent rashes <Jerry Rodriguez MD - Last Filed: 05/03/24 19:10> Follow-up/Referrals: Sebas,Mike Aaron APRN [Primary Care Provider] - <Jerry Rodriguez MD - Last Filed: 05/03/24 19:10>
[2024-05-03] MEDS: FUROSEMIDE INJ 40 MG/4 ML VIAL IV PUSH (18:24)
[2024-05-03 18:27] LABS: Fractional Inspired Oxygen 24 %; HCO3 VBG 24.3 mEq/l (24.0-30.0); PCO2 VBG 46.1 mmHg (42.0-48.0); pH VBG 7.339 (7.300-7.400)
[2024-05-03 18:32] LABS: Device NASAL CANNULA; PO2 VBG < 27.0 mmHg (35.0-45.0)
[2024-05-03 18:40] LABS: NT Pro B Type Natriuretic Pept 1750 pg/mL (19.9-100); Troponin I < 0.012 ng/mL (0.000-0.034)
[2024-05-03 19:37] LABS: D Dimer < 0.27 ug/mL (<0.48)
--- NOTE | 2024-05-03 20:20 | ECG_ITS ---
Test Date: 2024-05-03 20:26:48 Measurements Intervals [place] Rate: 77 P: 52 [place]: 161 QRS: -84 QRSD: 96 T: -51 QT: 388 QTc: 440 Interpretive Statements SINUS RHYTHM POSSIBLE LEFT ATRIAL ENLARGEMENT [-0.1mV P-WAVE IN V1/V2] LEFT AXIS DEVIATION [QRS AXIS < -30] ST DEVIATION AND MODERATE T-WAVE ABNORMALITY, CONSIDER LATERAL ISCHEMIA [-0.1+ mV T-WAVE IN I/aVL/V5/V6] ST DEVIATION AND MODERATE T-WAVE ABNORMALITY, CONSIDER INFERIOR ISCHEMIA [-0.1+ mV T-WAVE IN II/aVF] Compared to ECG 05/03/2024 16:41:53 NO SIGNIFICANT CHANGES Electronically Signed On 05-04-2024 10:42:15 CDT by Jaymie Ricks M.D.
[2024-05-03 20:53] LABS: Troponin I < 0.012 ng/mL (0.000-0.034)
--- NOTE | 2024-05-03 21:35 | P.HP_ITS ---
H&P: HPI History of Present Illness Date/Time: 05/03/24 21:35 Chief Complaint: SOB/dyspnea Narrative: This is a 54-year-old female with a significant past medical history of fibromyalgia, asthma, anxiety, depression, hyperlipidemia, GERD, hypothyroidism, hypertension, type 2 diabetes, insomnia, irritable bowel syndrome, sleep apnea who presented to the hospital with complaints of shortness of breath/dyspnea. Patient states that she was at physical therapy and started having shortness of breath with exertion. The physical therapist called her primary care doctor who prompted her to come to the emergency room for further evaluation. Workup in the hospital included a chest x-ray which showed cardiomegaly with mild interstitial edema. Chest CT was negative for any acute cardiopulmonary disease. Initial labs showed a normal white blood cell count of 9.0, D-dimer was less than 0.27, sodium 146, bicarb 19, anion gap 14, creatinine 1.44, EGFR 38, troponin negative x2, proBNP 1750. Respiratory panel was negative for influenza a and B, RSV, COVID. EKG showed sinus rhythm with left axis deviation with a rate of 77, QTC 440. Patient was given 40 mg IV push Lasix while in the ED. Review of Systems Review of Systems: All systems reviewed & are unremarkable except as noted in HPI and below PMFSH Past Medical History Medical History Depression Scoliosis Back pain Irritable bowel syndrome Sleep apnea Migraine Asthma Acid reflux Hypothyroidism Vaginal delivery x2 Fibromyalgia Disorder of thyroid Anxiety High cholesterol Surgical History Surgical History H/O removal of cyst tailbone History of colposcopy History of appendectomy H/O tubal ligation Family History Family History Mother Diabetes mellitus Hypertension Hyperlipidemia DVT (deep venous thrombosis) Father Hyperlipidemia Hypertension ALS (amyotrophic lateral sclerosis) Sibling , MVC No problems noted. Sibling No problems noted. Social History Social History Social History: Patient lives with her Jaun mendenhallates as her emergency contact. She is disabled and does not work. She has 2 living children. she reports smoking in the past but stopped 20 years ago. Smoking status: Never smoker Tobacco type: cigarettes Second hand tobacco smoke exposure: Yes Alcohol intake: never Substance use: never Substance use type: does not use Do You Feel Safe in your Home?: Yes Lack of Transportation: No Lack of Food: Never True Current Housing: I Have Housing Concerned About Future Housing: No Difficulty Paying Gas/Electric Bills: No Difficulty Paying for Meds: No Currently Unemployed: No Education: High School Diploma/GED Difficulty w/ Childcare or Family Care: No Living arrangements: with family Occupation/Education: unemployed Additional occupation/education comments: disabled Gender identity (if verbalized by the patient): Female Spiritual care concerns: No Meds Home Medications and Allergies Home Medications ?Medication ?Instructions ?Recorded ?Confirmed ?Type fenofibrate 54 mg tablet 54 mg PO DAILY 09/25/20 05/03/24 History hydroxyzine HCl 50 mg tablet 50 mg PO BID PRN Anxiety 09/25/20 05/03/24 History levothyroxine 25 mcg tablet 25 mcg PO DAILY 09/25/20 05/03/24 History (Euthyrox) metformin 1,000 mg tablet 1,000 mg PO BID 09/25/20 05/03/24 History omeprazole 40 mg capsule,delayed 40 mg PO DAILY 09/25/20 05/03/24 History release propranolol 120 mg capsule,24 120 mg PO DAILY 09/25/20 05/03/24 History hr,extended release topiramate 50 mg tablet 100 mg PO BID 09/25/20 05/03/24 History vilazodone 40 mg tablet (Viibryd) 40 mg PO HS 09/25/20 05/03/24 History losartan 100 mg tablet 100 mg PO DAILY 1 week #7 tabs 08/22/21 05/03/24 Rx amlodipine 10 mg tablet 10 mg PO DAILY 01/07/22 05/03/24 History metoclopramide HCl 10 mg tablet 10 mg PO BID 01/07/22 05/03/24 History ropinirole 1 mg tablet 4 mg PO DAILY 01/07/22 05/03/24 History buspirone 30 mg tablet 30 mg PO TID 01/11/23 05/03/24 History nystatin 100,000 unit/gram topical 1 applic topical BID #30 grams 08/04/23 05/03/24 Rx cream albuterol sulfate 90 mcg/actuation 1 inh inhalation Q4H PRN Dyspnea 08/09/23 05/03/24 History aerosol inhaler aripiprazole 5 mg tablet 5 mg PO DAILY 08/09/23 05/03/24 History fluticasone propionate 50 1 spray intranasal Q12H PRN 08/09/23 05/03/24 History mcg/actuation nasal allergy symptoms spray,suspension (Flonase Allergy Relief) pregabalin 100 mg capsule 100 mg PO TID 08/09/23 05/03/24 History trazodone 50 mg tablet 50 mg PO QHS PRN Insomnia 08/09/23 05/03/24 History ascorbic acid (vitamin C) 500 mg 500 mg PO DAILY 08/10/23 05/03/24 History tablet (Vitamin C) cholecalciferol (vitamin D3) 25 25 mcg PO DAILY 08/10/23 05/03/24 History mcg (1,000 unit) capsule (Vitamin D3) multivitamin 1 tablet PO DAILY 08/10/23 05/03/24 History vitamin B complex 1 tablet PO DAILY 08/10/23 05/03/24 History nystatin 100,000 unit/gram topical 1 applic topical DAILY #30 grams 08/23/23 05/03/24 Rx powder biotin 1,000 mcg chewable tablet 1,000 mcg PO DAILY 10/13/23 05/03/24 History aspirin 81 mg tablet,delayed 81 mg PO DAILY 11/08/23 05/03/24 History release magnesium 250 mg tablet 250 mg PO DAILY 01/18/24 05/03/24 History Allergies Allergy/AdvReac Type Severity Reaction Status Date / Time Penicillins Allergy Unknown Rash Verified 01/18/24 11:14 Vital Signs Vital Signs - 24 hr 05/03/24 16:19 05/03/24 16:32 05/03/24 16:38 Temperature 97.7 F Pulse Rate 75 80 76 Respiratory Rate 24 H 23 H Blood Pressure 129/81 138/115 H Pulse Oximetry 96 93 Oxygen Delivery Room Air 05/03/24 16:45 05/03/24 16:45 05/03/24 16:47 Temperature 97.6 F Pulse Rate 75 80 Respiratory Rate 22 H 25 H Blood Pressure 131/106 H 131/106 H Pulse Oximetry 92 92 Oxygen Delivery Room Air Room Air 05/03/24 17:01 05/03/24 17:16 05/03/24 17:31 Temperature Pulse Rate 78 77 75 Respiratory Rate 25 H 18 23 H Blood Pressure 142/105 H 131/96 H 138/84 Pulse Oximetry 93 92 Oxygen Delivery 05/03/24 17:46 05/03/24 17:52 05/03/24 18:01 Temperature Pulse Rate 76 74 Respiratory Rate 21 H 19 Blood Pressure 119/105 H 129/87 Pulse Oximetry 95 88 L 94 Oxygen Delivery Room Air 05/03/24 18:17 05/03/24 18:31 05/03/24 19:14 Temperature Pulse Rate 75 79 93 Respiratory Rate 15 24 H 19 Blood Pressure 142/93 H Pulse Oximetry 100 95 96 Oxygen Delivery 05/03/24 19:19 05/03/24 19:20 05/03/24 19:31 Temperature Pulse Rate 79 78 77 Respiratory Rate 20 22 H 22 H Blood Pressure 138/86 122/104 H Pulse Oximetry 100 99 99 Oxygen Delivery 05/03/24 19:46 05/03/24 20:22 05/03/24 20:31 Temperature Pulse Rate 78 76 77 Respiratory Rate 22 H 28 H 18 Blood Pressure 135/94 H 124/107 H 146/127 H Pulse Oximetry 98 98 96 Oxygen Delivery 05/03/24 20:45 05/03/24 20:46 05/03/24 21:01 Temperature Pulse Rate 76 76 75 Respiratory Rate 19 26 H 18 Blood Pressure 166/109 H 168/88 H Pulse Oximetry 96 96 97 Oxygen Delivery 05/03/24 21:16 Temperature Pulse Rate 73 Respiratory Rate 18 Blood Pressure 150/104 H Pulse Oximetry 96 Oxygen Delivery Exam Narrative: General: In no acute distress, well nourished Head: atraumatic, no encephalopathy Eyes: PERRLA, sclera clear ENT: moist mucous membranes, nasal passages clear Neck: supple, no JVD, no adenopathy, trachea midline Cardiac: Normal S1 and S2. No murmur, gallops or friction rubs, peripheral pulses intact. Respiratory: Lungs clear to auscultation, no adventitious lung sounds currently on 2 L nasal cannula Gastrointestinal: soft, non-distended, non-tender, normoactive bowel sounds. : voiding without difficulty. Extremities: moves all extremities well, 1+ edema left greater than right bilateral lower extremity Skin: clean, dry, intact. No wounds or lesions. Neuro: Alert and oriented x4, cranial nerves intact, no neuro deficits. Psych: normal mood, normal affect, interactive H&P: Results Labs Labs: Short CBC 05/03/24 Range/Units 16:44 WBC 9.0 (4.5-10.0) K/mm3 Hgb 14.9 (12.0-15.0) g/dL Hct 45.7 (37.0-47.0) % Plt Count 306 (150-375) k/mm3 BMP 05/03/24 16:44 Sodium 146 H Potassium 4.0 Chloride 113 H Carbon Dioxide 19 L BUN 23 H D Creatinine 1.44 H Glucose 105 Calcium 10.2 Cardiac Enzymes 05/03/24 05/03/24 Range/Units 16:43 20:24 Troponin I < 0.012 < 0.012 (0.000-0.034) ng/mL Liver Function 05/03/24 Range/Units 16:44 Total Bilirubin 0.6 (0.2-1.3) mg/dL AST 31 (14-36) U/L ALT 17 (6-35) U/L Alkaline Phosphatase 41 (38-126) U/L Albumin 4.3 (3.5-5.1) g/dL Imaging Chest x-ray: Radiologist's impression: XR chest 1V portable 05/03/2024 16:49 Indication: Shortness of breath Procedure: AP portable chest Comparison: 09/25/2020 Findings: Cardiomegaly with mild interstitial edema. No pleural effusion or pneumothorax. No acute osseous abnormality. Impression: 1: Cardiomegaly with mild interstitial edema. Differential diagnosis includes atypical pneumonia. Reviewed, dictated and finalized at location A. CT scan - chest: Radiologist's impression: EXAMINATION: CT diagnostic chest wo con DATE: 05/03/2024 20:15 INDICATION: History of heart failure TECHNIQUE: Computed tomography (CT) of the chest was performed without intravenous contrast. The dose-length product was 295.74 mGy-cm. Automated exposure control and iterative reconstruction technique were employed. COMPARISON: CT dated 10/12/2023 and chest x-ray dated 05/04/2019 FINDINGS: No focal airspace consolidation. No evidence for edema. No endobronchial lesions. No pneumothorax. No significant pleural or pericardial effusion. The upper abdomen is unremarkable. No suspicious pulmonary nodules or masses. There is scoliosis. No acute osseous abnormality. IMPRESSION: 1. No acute cardiopulmonary disease. Reviewed, dictated and finalized at location A. Assessment and Plan Assessment and plan (1) Hypoxic respiratory failure: Code(s): J96.91 - Respiratory failure, unspecified with hypoxia Status: Acute Assessment and Plan: * Chest x-ray showed cardiomegaly with mild interstitial edema * Chest CT showed no acute cardiopulmonary disease * Currently on 2 L nasal cannula * She was given 40 mg IV push Lasix while in the ED * Plan for echocardiogram in the morning * D-dimer less than 0.27, proBNP 1750 * Troponin negative x2 * Respiratory panel negative for influenza a and B, RSV, COVID * Will get venous Doppler as patient complained Will calf pain with dorsiflexion (2) Hypertension: Code(s): I10 - Essential (primary) hypertension Status: Acute Assessment and Plan: * Blood pressure ranging 143/72 to 166/109 * Continue amlodipine and losartan (3) Depression with anxiety: Code(s): F41.8 - Other specified anxiety disorders Status: Acute Assessment and Plan: * Continue Abilify, BuSpar (4) Diabetes: Code(s): E11.9 - Type 2 diabetes mellitus without complications Status: Acute Assessment and Plan: * Blood sugars ranging 105-108 * Hgb A1C 5.5 on 10/14/2023 * Accu checks AC/HS * High-dose SSI ordered * Hold metformin * hypoglycemic protocol in place * Diabetic diet ordered (5) Hypothyroidism: Code(s): E03.9 - Hypothyroidism, unspecified Status: Acute Assessment and Plan: * Continue Synthroid (6) Acid reflux: Code(s): K21.9 - Gastro-esophageal reflux disease without esophagitis Status: Acute Assessment and Plan: * Protonix ordered (7) Asthma: Code(s): J45.909 - Unspecified asthma, uncomplicated Status: Acute Assessment and Plan: * Albuterol rescue inhaler ordered (8) Morbid obesity with BMI of 40.0-44.9, adult: Code(s): E66.01 - Morbid (severe) obesity due to excess calories; Z68.41 - Body mass index [BMI] 40.0-44.9, adult Status: Acute Assessment and Plan: * BMI 37.5, 105.5 kg Quality VTE Prophylaxis VTE prophylaxis: pharmacologic ordered Hospitalist MIPS Advance Care Plan I have confirmed that the patient's Advanced Care Plan is present, code status is documented, or surrogate decision maker is listed in patient medical record.: Yes Medication Reconciliation I have utilized all available resources to obtain, update and review the patients current medications (includes all prescriptions, OTC, herbals, cannabis, and nutritional supplements).: Yes
--- NOTE | 2024-05-03 21:50 | ADMGEN ---
This patient, Amrita Hartman, was admitted to Medical Room 253-01. Patient/family oriented to hospital policies and general routines including ID bracelet, bed and alarms, visiting hours, pain management, procedures, bathroom and other care routines, personal items, smoking policy, room service/diet, and visiting hours. Information on how to activate the Rapid Response Team has been discussed. Patient/Family are encouraged to report perceived risks to care and to ask questions if they do not understand what they are told or what they should do.
[2024-05-04] VITALS (13 sets, daily range): BP systolic 130–147; BP diastolic 77–100; PULSE 75–88; RESP 18–20; TEMP 36.1–36.5; O2SAT 93–100
[2024-05-04 04:38] LABS: Basophils Absolute Auto 0.1 K/mm3 (0.0-0.1); Basophils Percent Auto 0.6 % (0.2-1.2); Eosinophils Absolute Auto 0.3 K/mm3 (0-0.3); Eosinophils Percent Auto 3.2 % (0-4.4); Hematocrit 45.7 % (37.0-47.0); Hemoglobin 14.7 g/dL (12.0-15.0); Immature Granulocyte Absolute 0.02 K/mm3 (0.00-0.031); Immature Granulocyte Percent A 0.2 % (0-0.5); Lymphocytes Absolute Auto 5.27 K/mm3 (0.9-3.2); Lymphocytes Percent Auto 49.2 % (18.3-44.2); Mean Corpuscular HGB Conc 32.2 g/dl (32-36); Mean Corpuscular Hemoglobin 28.6 pg (26-34); Mean Corpuscular Volume 88.9 fl (80-100); Mean Platelet Volume 11.7 fl (7.4-10.4); Monocytes Absolute Auto 0.9 K/mm3 (0.1-0.6); Monocytes Percent Auto 8.8 % (2.6-8.5); Neutrophils Absolute Auto 4.1 K/mm3 (1.3-6.7); Platelet Count Result 290 k/mm3 (150-375); Red Blood Count 5.14 M/mm3 (4.2-5.4); White Blood Count 10.7 K/mm3 (4.5-10.0)
[2024-05-04 04:56] LABS: Hemoglobin A1C 5.4 % (<5.7)
[2024-05-04 05:00] LABS: Alanine Aminotransferase 18 U/L (6-35); Albumin Level 4.4 g/dL (3.5-5.1); Alkaline Phosphatase 45 U/L (38-126); Anion Gap 12 mmol/L (4-12); Aspartate Amino Transferase 32 U/L (14-36); Bilirubin,Total 0.7 mg/dL (0.2-1.3); Blood Urea Nitrogen 23 mg/dL (7-17); Calcium 10.1 mg/dL (8.4-10.2); Carbon Dioxide 24 mmol/L (22-30); Chloride 108 mmol/L (98-107); Estimated CRCL calculation 56 ml/min; Estimated Glomerular Filt Rate 46; Glucose 110 mg/dL (65-110); Magnesium 1.4 mg/dL (1.6-2.3); Potassium 3.5 mmol/L (3.4-5.0); Sodium 144 mmol/L (137-145)
[2024-05-04] MEDS: ACETAMINOPHEN 325 MG TABLET 650 MG PO (06:16)
[2024-05-04] MEDS: LEVOTHYROXINE SODIUM 25 MCG TABLET PO (06:16)
--- NOTE | 2024-05-04 07:21 | PM.IMPN ---
Progress Note: A&P Assessment and Plan (1) Hypoxic respiratory failure: Code(s): J96.91 - Respiratory failure, unspecified with hypoxia Status: Acute Assessment and Plan: Chest x-ray: cardiomegaly with mild interstitial edema Chest CT: no acute cardiopulmonary disease Currently on 2 L nasal cannula Given 40mg Lasix in ED Troponin negative x2, Viral panel (-) for Flu A/B, RSV, COVID D-dimer less than 0.27, proBNP 1750 Echocardiogram: normal LV dimension, LV EF 55-60%, mild concentric increased LV wall thickness, LV septal wall motion abnormal w/ septal motion related to BBB, LV grade 1 diastolic dysfunction, trace DE Venous Doppler: No lower extremity deep venous thrombosis. (2) Hypertension: Code(s): I10 - Essential (primary) hypertension Status: Acute Assessment and Plan: Blood pressure ranging 143/72 to 166/109 Continue amlodipine and losartan (3) Depression with anxiety: Code(s): F41.8 - Other specified anxiety disorders Status: Acute Assessment and Plan: Continue AbiTao walsh (4) Diabetes: Code(s): E11.9 - Type 2 diabetes mellitus without complications Status: Acute Assessment and Plan: Blood sugars ranging 105-108 Hgb A1C 5.5 on 10/14/2023 Accu checks AC/HS High-dose SSI ordered Hold metformin hypoglycemic protocol in place Diabetic diet ordered (5) Hypothyroidism: Code(s): E03.9 - Hypothyroidism, unspecified Status: Acute Assessment and Plan: Continue Synthroid (6) Acid reflux: Code(s): K21.9 - Gastro-esophageal reflux disease without esophagitis Status: Acute Assessment and Plan: Protonix ordered (7) Asthma: Code(s): J45.909 - Unspecified asthma, uncomplicated Status: Acute Assessment and Plan: Albuterol rescue inhaler ordered (8) Morbid obesity with BMI of 40.0-44.9, adult: Code(s): E66.01 - Morbid (severe) obesity due to excess calories; Z68.41 - Body mass index [BMI] 40.0-44.9, adult Status: Acute Assessment and Plan: BMI 37.5, 105.5 kg Time Spent With Patient Time: - Subjective Date/time seen: 05/04/24 07:21 Interval history: This is a 54-year-old female with a significant past medical history of fibromyalgia, asthma, anxiety, depression, hyperlipidemia, GERD, hypothyroidism, hypertension, type 2 diabetes, insomnia, irritable bowel syndrome, sleep apnea who presented to the hospital with complaints of shortness of breath/dyspnea 05/04/2024 Patient is sitting comfortably in bedside. Pt was undergoing Doppler US during time of examination. She is endorsing minimal shortness of breath, currently on 2L NC. Endorses a slight non-productive cough. Denies any chest pain, n/v, abdominal pain. Echocardiogram performed. Venous Doppler performed, No lower extremity deep venous thrombosis. Review of Systems Review of Systems: All systems reviewed & are unremarkable except as noted in HPI and below Exam Narrative: General: In no acute distress, well nourished Head: atraumatic, no encephalopathy Eyes: PERRLA, sclera clear ENT: moist mucous membranes, nasal passages clear Neck: supple, no JVD, no adenopathy, trachea midline Cardiac: Normal S1 and S2. No murmur, gallops or friction rubs, peripheral pulses intact. Respiratory: Lungs clear to auscultation, no adventitious lung sounds currently on 2 L nasal cannula Gastrointestinal: soft, non-distended, non-tender, normoactive bowel sounds. : voiding without difficulty. Extremities: moves all extremities well, 1+ edema left greater than right bilateral lower extremity Skin: clean, dry, intact. No wounds or lesions. Neuro: Alert and oriented x4, cranial nerves intact, no neuro deficits. Psych: normal mood, normal affect, interactive Objective Data Vital Signs Vital Signs: Vital Signs - 24 hr 05/03/24 16:19 05/03/24 16:32 05/03/24 16:38 Temperature 97.7 F Pulse Rate 75 80 76 Respiratory Rate 24 H 23 H Blood Pressure 129/81 138/115 H Pulse Oximetry 96 93 Oxygen Delivery Room Air Oxygen Flow Rate 05/03/24 16:45 05/03/24 16:45 05/03/24 16:47 Temperature 97.6 F Pulse Rate 75 80 Respiratory Rate 22 H 25 H Blood Pressure 131/106 H 131/106 H Pulse Oximetry 92 92 Oxygen Delivery Room Air Room Air Oxygen Flow Rate 05/03/24 17:01 05/03/24 17:16 05/03/24 17:31 Temperature Pulse Rate 78 77 75 Respiratory Rate 25 H 18 23 H Blood Pressure 142/105 H 131/96 H 138/84 Pulse Oximetry 93 92 Oxygen Delivery Oxygen Flow Rate 05/03/24 17:46 05/03/24 17:52 05/03/24 18:01 Temperature Pulse Rate 76 74 Respiratory Rate 21 H 19 Blood Pressure 119/105 H 129/87 Pulse Oximetry 95 88 L 94 Oxygen Delivery Room Air Oxygen Flow Rate 05/03/24 18:17 05/03/24 18:31 05/03/24 19:14 Temperature Pulse Rate 75 79 93 Respiratory Rate 15 24 H 19 Blood Pressure 142/93 H Pulse Oximetry 100 95 96 Oxygen Delivery Oxygen Flow Rate 05/03/24 19:19 05/03/24 19:20 05/03/24 19:31 Temperature Pulse Rate 79 78 77 Respiratory Rate 20 22 H 22 H Blood Pressure 138/86 122/104 H Pulse Oximetry 100 99 99 Oxygen Delivery Oxygen Flow Rate 05/03/24 19:46 05/03/24 20:22 05/03/24 20:31 Temperature Pulse Rate 78 76 77 Respiratory Rate 22 H 28 H 18 Blood Pressure 135/94 H 124/107 H 146/127 H Pulse Oximetry 98 98 96 Oxygen Delivery Oxygen Flow Rate 05/03/24 20:45 05/03/24 20:46 05/03/24 21:01 Temperature Pulse Rate 76 76 75 Respiratory Rate 19 26 H 18 Blood Pressure 166/109 H 168/88 H Pulse Oximetry 96 96 97 Oxygen Delivery Oxygen Flow Rate 05/03/24 21:16 05/03/24 21:44 05/03/24 22:55 Temperature 97.4 F L Pulse Rate 73 71 Respiratory Rate 18 18 Blood Pressure 150/104 H 143/72 H Pulse Oximetry 96 95 99 Oxygen Delivery Nasal Cannula Oxygen Flow Rate 2 05/04/24 00:00 05/04/24 01:04 05/04/24 04:00 Temperature Pulse Rate 75 81 Respiratory Rate Blood Pressure Pulse Oximetry 99 Oxygen Delivery Nasal Cannula Oxygen Flow Rate 2 05/04/24 06:00 Temperature 97.7 F Pulse Rate 79 Respiratory Rate 18 Blood Pressure 144/95 H Pulse Oximetry 93 Oxygen Delivery Oxygen Flow Rate Meds/Results Medications: Active Medications Generic Name Dose Route Start Last Admin Trade Name Freq PRN Reason Stop Dose Admin Acetaminophen 650 mg 05/03/24 20:54 05/04/24 06:16 Acetaminophen 325 Mg Tablet PO 650 mg Q4H PRN Administration Mild Pain (1-3) or Fever Albuterol 1 puff 05/04/24 01:43 Albuterol Sulfate (*Sp) Aerosol 1 Puff INHALATION Q4HRT PRN Dyspnea Amlodipine Besylate 10 mg 05/04/24 09:00 Amlodipine Besylate 10 Mg Tablet PO DAILY [facility] Aripiprazole 5 mg 05/04/24 09:00 Aripiprazole 5 Mg Tablet PO DAILY [facility] Ascorbic Acid 500 mg 05/04/24 09:00 Ascorbic Acid 500 Mg Tablet PO DAILY [facility] Aspirin 81 mg 05/04/24 09:00 Aspirin 81 Mg Enteric Tablet PO DAILY [facility] Buspirone HCl 30 mg 05/04/24 09:00 Buspirone Hcl 10 Mg Tablet PO TID [facility] Dextrose 12.5 gm 05/04/24 01:51 Dextrose 50% 25 Gm/50 Ml Syringe IV PUSH PRN PRN Hypoglycemia Protocol Enoxaparin Sodium 40 mg 05/04/24 09:00 Enoxaparin 40 Mg/0.4 Ml Syringe SUB-Q DAILY [facility] Fluticasone Propionate 1 spray 05/04/24 01:43 Fluticasone Propionate 0.05% Na Spr 16 Gm Btl (*Bkc) NASAL Q12H PRN allergy symptoms Glucagon 1 mg 05/04/24 01:51 Glucagon For Inj 1 Mg Vial IM PRN PRN Hypoglycemia Protocol Glucose 15 gm 05/04/24 01:51 Glucose Oral Gel 15 Gm Of Glucse In 37.5 Gm Tube PO PRN PRN Hypoglycemia Protocol Hydroxyzine HCl 50 mg 05/04/24 01:43 Hydroxyzine Hcl 25 Mg Tablet PO BID PRN Anxiety Dextrose 1,000 mls @ 100 mls/hr 05/04/24 01:51 Dextrose 5% 1,000 Ml IVPB PRN PRN Hypoglycemia Protocol Insulin Aspart 4 - 8 units 05/04/24 08:00 Insulin Aspart (*Bkc) 100 Units/Ml SUB-Q TIDWM [facility] Protocol Insulin Aspart 2 - 4 units 05/04/24 21:00 Insulin Aspart (*Bkc) 100 Units/Ml SUB-Q HS [facility] Protocol Levothyroxine Sodium 25 mcg 05/04/24 06:30 05/04/24 06:16 Levothyroxine Sodium 25 Mcg Tablet PO 25 mcg DAILY@0630 [facility] Administration Losartan Potassium 100 mg 05/04/24 09:00 Losartan Potassium 100 Mg Tablet PO DAILY [facility] Metoclopramide HCl 10 mg 05/04/24 09:00 Metoclopramide Hcl 10 Mg Tablet PO BID [facility] Multivitamins Therapeutic 1 tablet 05/04/24 09:00 Multivitamins Therapeutic Tab (*Bkc) PO DAILY [facility] Ondansetron HCl 4 mg 05/03/24 20:54 Ondansetron Inj 4 Mg/2 Ml Vial IV PUSH Q4H PRN Nausea Perflutren Lipid Microsphere 0 ml 05/03/24 20:55 Perflutren Lipid Microspheres 1.5 Ml Vial Diluted To 10 Ml Total Volume IV PUSH 05/06/24 20:55 ONCE PRN adequate visualization Protocol Pregabalin 100 mg 05/04/24 09:00 Pregabalin (*Crx) 50 Mg Capsule PO TID [facility] Propranolol HCl 120 mg 05/04/24 09:00 Propranolol Hcl 60 Mg Capsule Cr PO DAILY [facility] Ropinirole HCl 4 mg 05/04/24 09:00 Ropinirole Hcl 1 Mg Tablet PO DAILY [facility] Topiramate 100 mg 05/04/24 09:00 Topiramate 100 Mg Tablet PO Q12HR [facility] Trazodone HCl 50 mg 05/04/24 01:43 Trazodone Hcl 50 Mg Tablet PO QHS PRN Insomnia Vitamin B Complex 1 cap 05/04/24 09:00 Vitamin B Complex Capsule PO DAILY [facility] Vitamin D 1,000 units 05/04/24 09:00 Cholecalciferol 1,000 Units Tablet PO DAILY [facility] Radiology Results: ITS Impressions Chest X-Ray 05/03/24 16:51 Impression: 1: Cardiomegaly with mild interstitial edema. Differential diagnosis includes atypical pneumonia. Chest CT 05/03/24 20:22 IMPRESSION: 1. No acute cardiopulmonary disease. Labs Labs: Laboratory Results - last 24 hr 05/03/24 05/03/24 05/03/24 16:43 16:44 18:20 WBC 9.0 RBC 5.16 Hgb 14.9 Hct 45.7 MCV 88.6 MCH 28.9 MCHC 32.6 RDW 14.2 Plt Count 306 MPV 11.7 H Immature Gran % (Auto) 0.2 Neut % (Auto) 44.7 L Lymph % (Auto) 44.8 H Scott % (Auto) 6.5 Eos % (Auto) 3.0 Baso % (Auto) 0.8 Lymph # (Auto) 4.04 H Scott # (Auto) 0.6 Eos # (Auto) 0.3 Baso # (Auto) 0.1 Abs Immat Gran (auto) 0.02 Absolute Neuts (auto) 4.0 Absolute Nucleated RBC 0.000 Nucleated RBC % 0.0 D-Dimer VBG pH 7.339 VBG pCO2 46.1 VBG pO2 < 27.0 L VBG HCO3 24.3 O2 Delivery Device Nasal cannula O2 Liters/Min 1.0 FiO2 24 Sodium 146 H Potassium 4.0 Chloride 113 H Carbon Dioxide 19 L Anion Gap 14 H BUN 23 H D Creatinine 1.44 H Estim Creat Clear Calc 48 Estimated GFR 38 L Glucose 105 Hemoglobin A1c Calcium 10.2 Magnesium Total Bilirubin 0.6 AST 31 ALT 17 Alkaline Phosphatase 41 Troponin I < 0.012 NT-Pro-B Natriuret Pep 1750 H Total Protein 8.0 Albumin 4.3 TSH Influenza A (RT-PCR) Negative Influenza B (RT-PCR) Negative RSV (RT-PCR) Negative SARS-CoV-2 RNA (RT-PCR) Negative 05/03/24 05/03/24 05/04/24 19:18 20:24 04:25 WBC 10.7 H RBC 5.14 Hgb 14.7 Hct 45.7 MCV 88.9 MCH 28.6 MCHC 32.2 RDW 14.0 Plt Count 290 MPV 11.7 H Immature Gran % (Auto) 0.2 Neut % (Auto) 38.0 L Lymph % (Auto) 49.2 H Scott % (Auto) 8.8 H Eos % (Auto) 3.2 Baso % (Auto) 0.6 Lymph # (Auto) 5.27 H Scott # (Auto) 0.9 H Eos # (Auto) 0.3 Baso # (Auto) 0.1 Abs Immat Gran (auto) 0.02 Absolute Neuts (auto) 4.1 Absolute Nucleated RBC 0.000 Nucleated RBC % 0.0 D-Dimer < 0.27 VBG pH VBG pCO2 VBG pO2 VBG HCO3 O2 Delivery Device O2 Liters/Min FiO2 Sodium 144 Potassium 3.5 Chloride 108 H Carbon Dioxide 24 Anion Gap 12 BUN 23 H Creatinine 1.22 H Estim Creat Clear Calc 56 Estimated GFR 46 L Glucose 110 Hemoglobin A1c 5.4 Calcium 10.1 Magnesium 1.4 L Total Bilirubin 0.7 AST 32 ALT 18 Alkaline Phosphatase 45 Troponin I < 0.012 NT-Pro-B Natriuret Pep Total Protein 8.0 Albumin 4.4 TSH 4.200 Influenza A (RT-PCR) Influenza B (RT-PCR) RSV (RT-PCR) SARS-CoV-2 RNA (RT-PCR) Quality VTE Prophylaxis VTE prophylaxis: pharmacologic ordered
[2024-05-04 08:08] LABS: Glucose Point of Care 114 mg/dl (65-105)
[2024-05-04] MEDS: METOCLOPRAMIDE HCL 10 MG TABLET PO ×2 (10:21→17:42)
[2024-05-04] MEDS: ARIPiprazole 5 MG TABLET PO (10:21)
[2024-05-04] MEDS: CHOLECALCIFEROL 1,000 UNITS TABLET 1000 UNITS PO (10:21)
[2024-05-04] MEDS: ASPIRIN 81 MG ENTERIC TABLET PO (10:21)
[2024-05-04] MEDS: busPIRone HCL 10 MG TABLET 30 MG PO ×3 (10:21→17:42)
[2024-05-04] MEDS: amLODIPine BESYLATE 10 MG TABLET PO (10:22)
[2024-05-04] MEDS: ASCORBIC ACID 500 MG TABLET PO (10:22)
[2024-05-04] MEDS: MULTIVITAMINS THERAPEUTIC TAB (*BKC) 1 TABLET PO (10:22)
[2024-05-04] MEDS: TOPIRAMATE 100 MG TABLET PO ×2 (10:22→21:31)
[2024-05-04] MEDS: VITAMIN B COMPLEX CAPSULE 1 CAP PO (10:22)
[2024-05-04] MEDS: PREGABALIN (*CRX) 50 MG CAPSULE 100 MG PO ×3 (10:22→17:42)
[2024-05-04] MEDS: LOSARTAN POTASSIUM 100 MG TABLET PO (10:22)
[2024-05-04] MEDS: rOPINIRole HCL 1 MG TABLET 4 MG PO (10:23)
[2024-05-04] MEDS: PROPRANOLOL HCL 60 MG CAPSULE CR 120 MG PO (10:24)
[2024-05-04] MEDS: ENOXAPARIN 40 MG/0.4 ML SYRINGE SUB-Q (10:28)
[2024-05-04 12:03] LABS: Glucose Point of Care 109 mg/dl (65-105)
--- NOTE | 2024-05-04 15:26 | PC.NURSE ---
On 05/04/24, the student, Adela Hamilton, provided care and completed [facility] documentation on this patient. I have reviewed the student's documentation and agree with the findings.
[2024-05-04 16:56] LABS: Glucose Point of Care 113 mg/dl (65-105)
--- NOTE | 2024-05-04 20:55 | ECHO_ITS ---
Patient Info Name: Amrita Hartman Age: 54 years : 1970 Gender: Female Ht: 66 in Wt: 233 lbs BSA: 2.27 m2 HR: 81 bpm BP: 143 / 72 mmHg Heart Rhythm: Sinus Rhythm Technical Quality: Fair Exam Date: 05/04/2024 9:17 AM Exam Location: Echo Lab Patient Status: Inpatient Admit Date: 05/03/2024 Staff Ordering Physician: Riri Brown MD Veneer Splicer: Livia Tai RDCS Attending Provider: Bashir Amaya PA-C Referring Physician: Kevin TUCKER; Exam Type: CA echo doppler color flow Study Info Indications - New onset heart failure Complete two-dimensional, color flow and Doppler transthoracic echocardiogram is performed. Summary 1. Complete two-dimensional, color flow and Doppler transthoracic echocardiogram is performed. 2. Left ventricular chamber dimension is normal. 3. Left ventricular systolic function is normal, estimated at 55-60%. 4. There is mild concentric increased left ventricular wall thickness. 5. Left ventricular septal wall motion is abnormal with septal motion related to bundle branch block. 6. The left ventricular diastolic function is grade I diastolic dysfunction. 7. E/e' 6 is not elevated. 8. Right atrial chamber dimension is mildly enlarged. 9. No pulmonary hypertension, estimated pulmonary arterial systolic pressure is 23 mmHg. 10. There is trace pulmonic regurgitation. 11. There is trivial pericardial effusion. 12. 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 Left Ventricle Left ventricular chamber dimension is normal. Left ventricular systolic function is normal, estimated at 55-60%. There is mild concentric increased left ventricular wall thickness. Left ventricular septal wall motion is abnormal with septal motion related to bundle branch block. The left ventricular diastolic function is grade I diastolic dysfunction. E/e' 6 is not elevated. Right Ventricle Right ventricular chamber dimension is normal. Right ventricular systolic function is normal. Left Atria Left atrial chamber dimension is normal. Right Atria Right atrial chamber dimension is mildly enlarged. Aortic Valve The aortic valve is trileaflet. There is no aortic valve stenosis. There is no aortic valve regurgitation. Pulmonic Valve There is trace pulmonic regurgitation. Mitral Valve There is no mitral valve stenosis. There is no mitral valve regurgitation. Tricuspid Valve There is no tricuspid valve regurgitation. No pulmonary hypertension, estimated pulmonary arterial systolic pressure is 23 mmHg. Pericardium/Pleural Pericardial stripe with interventricular dependence could suggest constrictive pericarditis. There is trivial pericardial effusion. Inferior Vena Cava Inferior vena cava is not well visualized. Aorta The aortic root size at the sinus of Valsalva is normal. Left Ventricular Outflow Tract Name Value Normal LVOT 2D LVOT Diameter 2.2 cm LVOT Doppler LVOT Peak Gradient 1 mmHg LVOT Mean Gradient 1 mmHg LVOT VTI 10 cm LVOT VTI/AV VTI Ratio 0.7 LVOT Stroke Volume 39 ml LVOT CO 3.0 l/min LVOT CI 1.3 l/min/m2 Pulmonic Valve Name Value Normal RVOT Doppler RVOT Peak Gradient 2 mmHg PV Doppler PV Peak Gradient 2 mmHg Mitral Valve Name Value Normal MV Doppler MV Decel [place] 110 cm/s2 MV PHT 85 ms MV Area (PHT) 2.6 cm2 4.0-5.0 MV Diastolic Function MV E Peak Velocity 32 cm/s MV A Peak Velocity 53 cm/s MV E/A 0.6 MV Decel Time 294 ms MV Annular TDI MV E/e' (Septal) 9.3 <=8.0 MV E/e' (Lateral) 5.0 <=8.0 MV E/e' (Average) 7.1 Tricuspid Valve Name Value Normal TV Regurgitation Doppler TR Peak Velocity 214 cm/s TR Peak Gradient 18 mmHg Estimated PAP/RSVP RA Pressure 5 mmHg <=5 PA Systolic Pressure 23 mmHg <36 RV Systolic Pressure 23 mmHg <36 Aortic Valve Name Value Normal AV Doppler AV Peak Velocity 94 cm/s AV Peak Gradient 4 mmHg AV Mean Gradient 2 mmHg AV VTI 15 cm AV Area (Cont Eq VTI) 2.6 cm2 >=3.0 AV Area (Cont Eq Jethro) 2.1 cm2 AV Regurgitation 2D LVOT Area 3.7 cm2 Ventricles Name Value Normal LV Dimensions 2D/MM IVS Diastolic Thickness (2D) 1.5 cm 0.6-1.0 LVID Diastole (2D) 4.0 cm 3.8-5.2 LVIW Diastolic Thickness (2D) 1.4 cm 0.6-0.9 LVID Systole (2D) 2.8 cm 2.2-3.5 LVOT Diameter 2.2 cm LV Mass (2D Cubed) 232.62 g 67.00-162.00 LV Mass Index (2D Cubed) 103 g/m2 43-95 Relative Wall Thickness (2D) 0.72 LV Fractional Shortening/Ejection Fraction 2D/MM LV Fractional Shortening (2D) 35 % 27-45 LV EF (2D Teicholz) 64 % 54-74 LV Diastolic Volume (4C MOD) 61 ml LV EF (4C MOD) 64 % LV Diastolic Volume (2C MOD) 67 ml LV EF (2C MOD) 54 % LV Diastolic Volume (BP MOD) 65 ml 46-106 LV Diastolic Volume Index (BP MOD) 29 ml/m2 29-61 LV Systolic Volume (BP MOD) 27 ml 14-42 LV Systolic Volume Index (BP MOD) 12 ml/m2 8-24 LV EF (BP MOD) 58 % 54-74 LV Diastolic Length (4C) 7.4 cm LV Systolic Length (4C) 4.5 cm LV Stroke Volume (4C MOD) 39 ml Atria Name Value Normal LA Dimensions LA Volume (4C A-L) 47 ml RA Dimensions RA Area (4C) 23.9 cm2 <=18.0 Report Signatures
[2024-05-05] VITALS (7 sets, daily range): BP systolic 137; BP diastolic 86; PULSE 70–84; RESP 20; TEMP 36.3; O2SAT 98
[2024-05-05 00:31] LABS: Glucose Point of Care 119 mg/dl (65-105)
[2024-05-05 05:26] LABS: Basophils Absolute Auto 0.1 K/mm3 (0.0-0.1); Basophils Percent Auto 0.7 % (0.2-1.2); Eosinophils Absolute Auto 0.3 K/mm3 (0-0.3); Eosinophils Percent Auto 2.8 % (0-4.4); Hematocrit 46.3 % (37.0-47.0); Immature Granulocyte Absolute 0.01 K/mm3 (0.00-0.031); Immature Granulocyte Percent A 0.1 % (0-0.5); Lymphocytes Absolute Auto 4.47 K/mm3 (0.9-3.2); Lymphocytes Percent Auto 46.6 % (18.3-44.2); Mean Corpuscular HGB Conc 32.4 g/dl (32-36); Mean Corpuscular Hemoglobin 29.4 pg (26-34); Mean Corpuscular Volume 90.6 fl (80-100); Mean Platelet Volume 11.7 fl (7.4-10.4); Monocytes Absolute Auto 0.8 K/mm3 (0.1-0.6); Monocytes Percent Auto 8.8 % (2.6-8.5); Neutrophils Absolute Auto 3.9 K/mm3 (1.3-6.7); Platelet Count Result 264 k/mm3 (150-375); Red Blood Count 5.11 M/mm3 (4.2-5.4); Red Cell Distribution Width 13.9 % (11.5-14.5); White Blood Count 9.6 K/mm3 (4.5-10.0)
[2024-05-05 05:42] LABS: Alanine Aminotransferase 19 U/L (6-35); Albumin Level 4.1 g/dL (3.5-5.1); Alkaline Phosphatase 43 U/L (38-126); Anion Gap 14 mmol/L (4-12); Aspartate Amino Transferase 34 U/L (14-36); Bilirubin,Total 0.6 mg/dL (0.2-1.3); Blood Urea Nitrogen 27 mg/dL (7-17); Calcium 9.7 mg/dL (8.4-10.2); Carbon Dioxide 18 mmol/L (22-30); Chloride 109 mmol/L (98-107); Estimated CRCL calculation 56 ml/min; Estimated Glomerular Filt Rate 46; Glucose 116 mg/dL (65-110); Potassium 3.5 mmol/L (3.4-5.0); Sodium 141 mmol/L (137-145)
[2024-05-05 05:47] LABS: NT Pro B Type Natriuretic Pept 1350 pg/mL (19.9-100)
[2024-05-05] MEDS: LEVOTHYROXINE SODIUM 25 MCG TABLET PO (05:51)
[2024-05-05] MEDS: MULTIVITAMINS THERAPEUTIC TAB (*BKC) 1 TABLET PO (09:46)
[2024-05-05] MEDS: LOSARTAN POTASSIUM 100 MG TABLET PO (09:46)
[2024-05-05] MEDS: amLODIPine BESYLATE 10 MG TABLET PO (09:46)
[2024-05-05] MEDS: ASCORBIC ACID 500 MG TABLET PO (09:46)
[2024-05-05] MEDS: METOCLOPRAMIDE HCL 10 MG TABLET PO (09:46)
[2024-05-05] MEDS: TOPIRAMATE 100 MG TABLET PO (09:46)
[2024-05-05] MEDS: busPIRone HCL 10 MG TABLET 30 MG PO (09:46)
[2024-05-05] MEDS: VITAMIN B COMPLEX CAPSULE 1 CAP PO (09:46)
[2024-05-05] MEDS: ASPIRIN 81 MG ENTERIC TABLET PO (09:46)
[2024-05-05] MEDS: PREGABALIN (*CRX) 50 MG CAPSULE 100 MG PO (09:46)
[2024-05-05] MEDS: CHOLECALCIFEROL 1,000 UNITS TABLET 1000 UNITS PO (09:46)
[2024-05-05] MEDS: PROPRANOLOL HCL 60 MG CAPSULE CR 120 MG PO (09:46)
[2024-05-05] MEDS: ARIPiprazole 5 MG TABLET PO (09:46)
[2024-05-05] MEDS: ENOXAPARIN 40 MG/0.4 ML SYRINGE SUB-Q (09:47)
[2024-05-05] MEDS: rOPINIRole HCL 1 MG TABLET 4 MG PO (09:47)
--- NOTE | 2024-05-05 11:29 | PM.DS ---
DS: Admitting Diagnosis Discharge Date 05/05/2024 Admitting Diagnosis Hypoxic respiratory failure DS: Discharge Diagnosis Discharge Diagnosis (1) Hypoxic respiratory failure: Code(s): J96.91 - Respiratory failure, unspecified with hypoxia Status: Acute (2) Hypertension: Code(s): I10 - Essential (primary) hypertension Status: Acute (3) Depression with anxiety: Code(s): F41.8 - Other specified anxiety disorders Status: Acute (4) Diabetes: Code(s): E11.9 - Type 2 diabetes mellitus without complications Status: Acute (5) Hypothyroidism: Code(s): E03.9 - Hypothyroidism, unspecified Status: Acute Assessment and Plan: Continue Synthroid (6) Acid reflux: Code(s): K21.9 - Gastro-esophageal reflux disease without esophagitis Status: Acute (7) Asthma: Code(s): J45.909 - Unspecified asthma, uncomplicated Status: Acute (8) Morbid obesity with BMI of 40.0-44.9, adult: Code(s): E66.01 - Morbid (severe) obesity due to excess calories; Z68.41 - Body mass index [BMI] 40.0-44.9, adult Status: Acute DS: Summary Hospital Course Reason for hospitalization: SOB/Dyspnea Hospital Course: This is a 54-year-old female with a significant past medical history of fibromyalgia, asthma, anxiety, depression, hyperlipidemia, GERD, hypothyroidism, hypertension, type 2 diabetes, insomnia, irritable bowel syndrome, sleep apnea who presented to the hospital with complaints of shortness of breath/dyspnea. Patient states that she was at physical therapy and started having shortness of breath with exertion. The physical therapist called her primary care doctor who prompted her to come to the emergency room for further evaluation. Workup in the hospital included a chest x-ray which showed cardiomegaly with mild interstitial edema. Chest CT was negative for any acute cardiopulmonary disease. Initial labs showed a normal white blood cell count of 9.0, D-dimer was less than 0.27, sodium 146, bicarb 19, anion gap 14, creatinine 1.44, EGFR 38, troponin negative x2, proBNP 1750. Respiratory panel was negative for influenza a and B, RSV, COVID. EKG showed sinus rhythm with left axis deviation with a rate of 77, QTC 440. Patient was given 40 mg IV push Lasix while in the ED. Venous Doppler study was obtained and showed no lower extremity deep venous thrombosis. Echocardiogram showed Left ventricular chamber dimension is normal.Left ventricular systolic function is normal, estimated at 55-60%. There is mild concentric increased left ventricular wall thickness. Left ventricular septal wall motion is abnormal with septal motion related to bundle branch block. The left ventricular diastolic function is grade I diastolic dysfunction. Trace VA and trivial pericardial effusion. Upon exam, patient does not appear to be grossly fluid overloaded. No signs of edema, lung sounds are clear. She will most likely benefit from further cardiology management outpatient, which can be set up through her PCP. Upon examination, pt is not utilizing any supplemental O2 and denies any SOB at rest. Endorses some exertional dyspnea after walking to/from the restroom, but states that this is typical for her. Given no O2 supplement dependency with adequate O2% and stable vitals/blood work, she is stable for discharge with close outpt followup. Time Spent with Patient Time attestation: Total time spent providing and/or coordinating discharge services:45 Exam Narrative: General: In no acute distress, well nourished Head: atraumatic, no encephalopathy Eyes: PERRLA, sclera clear ENT: moist mucous membranes, nasal passages clear Neck: supple, no JVD, no adenopathy, trachea midline Cardiac: Normal S1 and S2. No murmur, gallops or friction rubs, peripheral pulses intact. Respiratory: Lungs clear to auscultation, no adventitious lung sounds currently on Room air Gastrointestinal: soft, non-distended, non-tender, normoactive bowel sounds. : voiding without difficulty. Extremities: moves all extremities well, no edema Skin: clean, dry, intact. No wounds or lesions. Neuro: Alert and oriented x4, cranial nerves intact, no neuro deficits. Psych: normal mood, normal affect, interactive DS: Data Data Completed and Pending Labs on day of discharge: Labs from last 24 hours 05/05/24 05/04/24 05/04/24 05:19 20:24 16:54 WBC 9.6 RBC 5.11 Hgb 15.0 Hct 46.3 MCV 90.6 MCH 29.4 MCHC 32.4 RDW 13.9 Plt Count 264 MPV 11.7 H Immature Gran % (Auto) 0.1 Neut % (Auto) 41.0 L Lymph % (Auto) 46.[address] [place] % (Auto) 8.8 H Eos % (Auto) 2.8 Baso % (Auto) 0.7 Lymph # (Auto) 4.[address] [facility] # (Auto) 0.8 H Eos # (Auto) 0.3 Baso # (Auto) 0.1 Abs Immat Gran (auto) 0.01 Absolute Neuts (auto) 3.9 Absolute Nucleated RBC 0.000 Nucleated RBC % 0.0 Sodium 141 Potassium 3.5 Chloride 109 H Carbon Dioxide 18 L Anion Gap 14 H BUN 27 H Creatinine 1.22 H Estim Creat Clear Calc 56 Estimated GFR 46 L Glucose 116 H POC Capillary Glucose 119 H 113 H Calcium 9.7 Total Bilirubin 0.6 AST 34 ALT 19 Alkaline Phosphatase 43 NT-Pro-B Natriuret Pep 1350 H Total Protein 8.0 Albumin 4.1 05/04/24 12:00 WBC RBC Hgb Hct MCV MCH MCHC RDW Plt Count MPV Immature Gran % (Auto) Neut % (Auto) Lymph % (Auto) [facility] % (Auto) Eos % (Auto) Baso % (Auto) Lymph # (Auto) [facility] # (Auto) Eos # (Auto) Baso # (Auto) Abs Immat Gran (auto) Absolute Neuts (auto) Absolute Nucleated RBC Nucleated RBC % Sodium Potassium Chloride Carbon Dioxide Anion Gap BUN Creatinine Estim Creat Clear Calc Estimated GFR Glucose POC Capillary Glucose 109 H Calcium Total Bilirubin AST ALT Alkaline Phosphatase NT-Pro-B Natriuret Pep Total Protein Albumin Discharge Plan Discharge Attending physician on discharge: Bashir Amaya Discharging Clinician: Bashir Amaya Anticipated Discharge Date/Time: 05/05/24 11:28 Patient Disposition: Home, Self-Care Activity: as tolerated Diet: as tolerated Discharge Instructions: Take medications as prescribed Monitor blood pressures Take caution while standing, rising, or moving Change positions slowly taking a break between each position change If you standing feel dizzy sit back down and take a break Encouraged to continue with yearly vaccinations Return to the emergency department if he developed sudden shortness of breath, chest pain, nausea, vomiting, upset stomach or intractable diarrhea Return to the emergency department if you develop fever greater than 101.5 Follow-up with the primary care physician within 1-2 weeks Thank you for [facility] for your healthcare needs Patient Instructions: Shortness of Breath (DC) Patient Language: Venezuelan Stand Alone Forms: General Discharge Information Follow-up/Referrals: Sebas,Mike Aaron APRN [Primary Care Provider] - Discharge Medications: Continued magnesium 250 mg tablet 250 mg PO DAILY amlodipine 10 mg tablet 10 mg PO DAILY metoclopramide HCl 10 mg tablet 10 mg PO BID pregabalin 100 mg capsule 100 mg PO TID fluticasone propionate [Flonase Allergy Relief] 50 mcg/actuation spray,suspension 1 spray intranasal Q12H PRN (Reason: allergy symptoms) Rx Instructions: administer into each nostril aripiprazole 5 mg tablet 5 mg PO DAILY trazodone 50 mg tablet 50 mg PO QHS PRN (Reason: Insomnia) albuterol sulfate 90 mcg/actuation HFA aerosol inhaler 1 inh inhalation Q4H PRN (Reason: Dyspnea) aspirin 81 mg tablet,delayed release (DR/EC) 81 mg PO DAILY hydroxyzine HCl 50 mg tablet 50 mg PO BID PRN (Reason: Anxiety) omeprazole 40 mg capsule,delayed release(DR/EC) 40 mg PO DAILY levothyroxine [Euthyrox] 25 mcg tablet 25 mcg PO DAILY metformin 1,000 mg tablet 1,000 mg PO BID Patient Comments: Prescribed for PCOS not for diabetes fenofibrate 54 mg tablet 54 mg PO DAILY propranolol 120 mg capsule,extended release 24 hr 120 mg PO DAILY topiramate 50 mg tablet 100 mg PO BID vilazodone [Viibryd] 40 mg tablet 40 mg PO HS ropinirole 1 mg tablet 4 mg PO DAILY buspirone 30 mg tablet 30 mg PO TID losartan 100 mg tablet 100 mg PO DAILY 7 Days Qty: 7 0RF multivitamin Tablet 1 tablet PO DAILY ascorbic acid (vitamin C) [Vitamin C] 500 mg Tablet 500 mg PO DAILY vitamin B complex Tablet 1 tablet PO DAILY cholecalciferol (vitamin D3) [Vitamin D3] 25 mcg (1,000 unit) Capsule 25 mcg PO DAILY biotin 1,000 mcg Tablet,Chewable 1,000 mcg PO DAILY nystatin 100,000 unit/gram cream 1 applic topical BID Qty: 30 0RF Rx Instructions: apply a thin layer to affect areas twice daily for rash. (groin) nystatin 100,000 unit/gram powder 1 applic topical DAILY Qty: 30 0RF Rx Instructions: apply a thin layer to groin and beneath breasts daily to prevent rashes Date of admission: 05/03/24 20:54 Primary Care Provider: Sebas,Mike Aaron Admitting Provider: Cm Maldonado Attending physician on admission: Bashir Amaya Condition: Stable Quality VTE Prophylaxis VTE prophylaxis: pharmacologic ordered
== END 2024-05-05 13:22 | disposition home or self-care (01) ==
LOC: ANHED 19:15 → ANH2MED 21:11
PROVIDERS: Emergency Medicine; Nurse Practitioner Acute Care; Admitting Provider General Practice; Emergency Provider Student in an Organized Health Care Education/Training Program; PCP Nurse Practitioner; Visit Provider Physician Assistant
DX: J96.91 Respiratory failure, unspecified with hypoxia (principal); I10 Essential (primary) hypertension; F41.8 Other specified anxiety disorders; E11.9 Type 2 diabetes mellitus without complications; E03.9 Hypothyroidism, unspecified; K21.9 Gastro-esophageal reflux disease without esophagitis; J45.909 Unspecified asthma, uncomplicated; E66.01 Morbid (severe) obesity due to excess calories; Z68.37 Body mass index [BMI] 37.0-37.9, adult; G47.33 Obstructive sleep apnea (adult) (pediatric); G47.00 Insomnia, unspecified; E78.00 Pure hypercholesterolemia, unspecified; M79.7 Fibromyalgia; K58.9 Irritable bowel syndrome, unspecified; Z20.822 Contact with and (suspected) exposure to COVID-19; Z87.891 Personal history of nicotine dependence; Z79.51 Long term (current) use of inhaled steroids; Z79.82 Long term (current) use of aspirin; Z79.84 Long term (current) use of oral hypoglycemic drugs; Z79.899 Other long term (current) drug therapy
CPT/HCPCS: 36415; 71045; 71250; 80053; 82803; 82948; 83036; 83735; 83880; 84443; 84484; 85025; 85380; 87637; 93005; 93306; 93970; 96372; 96374; 96375; 99285; A9270; G0378; G0379; J1650; J1940

== ENCOUNTER 2024-06-01 15:35 | Outpatient (CLI) | payer OTHER, SELFPAY ==
--- NOTE | ~2024-06-01 | MM_ITS ---
EXAMINATION: MM screening [facility] BI w ayesha HISTORY: Screening TECHNIQUE: Craniocaudal and mediolateral oblique 3-D tomosynthesis images were obtained and synthetic 2-D images were generated. CAD analysis was submitted and interpreted. COMPARISON: Comparison to multiple prior studies sequentially, with oldest reviewed study dated 08/16. BREAST PARENCHYMAL COMPOSITION: Not dense: There are scattered areas of fibroglandular density. FINDINGS: There is no evidence of suspicious mass, calcification, or architectural distortion to sugg est malignancy in either breast. There has been no suspicious interval change. IMPRESSION: 1. No mammographic evidence of malignancy. 2. Recommend routine screening mammography in one year. BI-RADS Category 1: Negative Reviewed, dictated and finalized at location A.
--- OUTSIDE RECORDS SUMMARY | 2024-06-01 15:41 | XMS_ITS | CONTINUITY OF CARE DOCUMENT ---
Author Name aditya burgess Address Unknown Organization [facility] Address [address] [place] [address] [address] [place] [address] Phone [phone] Care Team Providers Care Weld Technician Name Role Phone Yuriy Park MD Unavailable LYNETTE WILKINS MD Unavailable [phone] LYNETTE CUTLER MD Unavailable [phone] INSURANCE PROVIDERS Payer name Policy type / Coverage type [place] red green party ID [id number] MEDICAID (2) Medicaid [id number]
--- OUTSIDE RECORDS SUMMARY | 2024-06-01 15:42 | XMS_ITS | Clinical Summary ---
Author Organization [facility] Address [address] [place] [address] Care Team Providers Care Security Systems Installer Name Role Phone Unavailable Primary Care Provider Unavailabl e Source Comments [facility],non-owned Affiliates and Associated Physician Practices is amultiple site organization consisting of ambulatory clinics and hospital sitesin [place], [place], [place] and [place]. This disclosure is being madepursuant to the Care Everywhere program and may not contain all information available regarding this patient. Last updated 17.[facility] Allergies Active Allergy Reactions Criticality Noted Date Comments Penicillins Urticaria Medium Medications * Be aware that medications may not be up to date on this document. Alwaysverify current medications with the patient. sulindac (CLINORIL) 150 MG tablet Take 150 mg by mouth 2 times daily Active HYDROcodone-acetaminoph en (NORCO) 10-325 MG tablet Take 1 tablet [...] daily before breakfast Active Turmeric 500 MG Acti ve Vitamin D, Cholecalciferol, 1000 units CAPS Active Multiple Vitamins-Minerals (MULTIVITAL PO) Acti ve Magnesium 500 MG Act saray Social History Tobacco Use Types Packs/Day Years Used Date Smoking Tobacco: Never Smokeless Tobacco: Never Alcohol Use Standard Drinks/Week Comments No 0 (1 standard drink = 0.6 oz pur e alcohol) Comments No Sex and Gender Information Value Date Recorded Sex Assigned at Not on file Legal Sex Female 1:18 PM CDT Gender Identity Not on file Sexual Orientation [...] 02/12/2018 SCREENING FOR DIABETES 06/19/2018 COVID-19 VACCINE (1 - 2023-2 5 season) 2023 DEPRESSION SCREENING 02/08/2024 INFLUENZA VACCINE (Season Ended) 2024 HIB VACCINE Aged Out No longer eligi [...] on patient's age to complete this topic Insurance
--- OUTSIDE RECORDS SUMMARY | 2024-06-01 15:42 | XMS_ITS | Data Portability ---
Author Organization [facility] Address [address] [place] [address] Assessment No assessment recorded. Plan of Treatment Reminders Order Date Submit Date Provider Last Modified By Organization Details Last Modified Time Details Appointments None recorded. Lab SARS CoV 2 RNA (COVID-19) , QL, electronic device monitor-PCR, respirator y specimen - cough for one week, denies having any other COVID-19 symptoms. Denies being exposed to pos COVID-19. [place] [address] [facility] (Lab), [facility] [place], [address], 0 12:36:11 CMP, serum or plasma 2016 017 [facility], [address], [address], [place], [address], 7 16:11:49 lipid panel, serum 2016 017 [facility], [address], [address], [place], [address], 7 16:11:49 Referral pain management referral 2016 017 [facility] Not available 7 19:55:[address] referral - [facility] to schedule 2016 [facility]17 [facility] 7 10:55:46 Procedures None recorded. Surgeries None recorded. Imaging None recorded. Medication Orders omeprazole 40 mg capsule,de layed release 2016 017 [id number], [address] [place], [address], 7 16:10:09 lisinopril 20 mg tablet 2016 017 [id number], [address] [place], [address], 12:07:33 Patient TargetsNo targets recorded. Patient Instructions Encounter Date Encounter Id Patient Instructions Last Modified By Organization Details Last Modified Time 03/26/2016 [id number] bipolar disorder: care instructions [facility] Not available 03/26/2016 16:10:17 learning about mood disorders si Not available 03/26/2016 16:10:17 polycystic ovary syndrome: care instructions [facility] Not available 03/26/2016 16:10:17 When You Want to Lose Weight: Care Instructions [facility] Not available 03/26/2016 16:10:17 learning about high blood pressure si Not available 03/26/2016 16:10:17 She will wait for her ASSOCIATE DIRECTOR ex. before the moammogram screening. [facility] Not available 03/26/2016 16:31:19 07/23/2019 [id number] Reviewed the following recommendations: -Stay home and [...] Not available 07/23/2019 14:14:45 Reason for Referral Ip Counsel Referral for Po lycystic ovaries Patient to schedule Referring Physician: Jill Ramirez, Internal Medicine, Encounter Date: 03/26/2016 Pain Management Referral for Chronic low back pain Referring Physician: Jill Ramirez, Internal Medicine, Encounter Date: 03/26/2016 Results Created Date Observation Date Name Description Value Unit Range Abnormal Flag Note LastModifiedBy Organization Detail LastModifiedTime 07/23/19 20 07/23/2019 SARS CoV 2 RNA (COVI D-19) , QL, electronic device monitor-P CR, respi rator y speci men sars - cov - 2 PCR NEGATI VE mL Not Available [facility] (Lab) [address], [place], [address], 08/01/2019 08:06:38 07/23/19 20 07/23/2019 SARS CoV 2 RNA (COVI D-19) , QL, electronic device monitor-P CR, respi rator y speci men covidcom1 [...] of this test metho d. Not Available [facility] (Lab) [address], [place], [address], 08/01/2019 08:06:38 07/23/19 20 07/23/2019 SARS CoV 2 RNA (COVI D-19) , QL, electronic device monitor-P CR, respi rator y speci men covidcom2 Posit saray resul ts are indic ative of the prese nce of SARS- CoV-2 RNA and do not rule out bacte rial infec tion or co-in fecti on with other virus es. Not Available [facility] (Lab) [address], [place], [address], 08/01/2019 08:06:38 07/23/19 20 07/23/2019 SARS CoV 2 RNA (COVI D-19) , QL, electronic device monitor-P CR, respi rator y speci men covidcom3 Test resul ts shoul d be used along with other clini luc obser vatio ns, patie nt histo ry, epide miolo gical infor matio n and labor atory data in [facility] g the diagn osis. Not Available [facility] (Lab) [address] [place], [address], 08/01/2019 08:06:38 07/23/19 20 07/23/2019 SARS CoV 2 RNA (COVI D-19) , QL, electronic device monitor-P CR, respi rator y speci men covidcom4 This test has recei [place] FDA Emerg ency Use Autho rizat ion and has been verif [facility] . This test is only autho rized for the durat ion of the decla ratio n and the circu mstan jaquelnie that exist to justi fy the autho [...] or revok ed soone r. Not Available [facility] (Lab) [address] [facility], [place], [address], 08/01/2019 08:06:38 07/23/19 20 07/23/2019 SARS CoV 2 RNA (COVI D-19) , QL, electronic device monitor-P CR, respi rator y speci men covidcom5 [facility] Labor atory is certi fied under CLIA- 88 as quali fied to perfo rm high compl exity testi ng. This testi ng was perfo rmed in the [facility] [place] [address] (CLIA Licen se #[id number] 5, CAP #[id number], AU-ID #[id number]). Not Available [facility] (Lab) [address], [place], [address], 08/01/2019 08:06:38 07/23/19 20 07/23/2019 SARS CoV 2 RNA (COVI D-19) , QL, electronic device monitor-P CR, respi rator y speci men covidcom6 Facts heet for healt hcare provi ders: https ://ww w.fda .gov/ media /1362 56/do wnloa d Facts heet for mirela nts: https ://ww w.fda .gov/ media /1362 57/do wnloa d Not Available [facility] ([facility]) [address] [place], [address], 08/01/2019 08:06:38 Result Notes None recorded. Procedures Surgical History Date Name Laterality Status Provider Name and Address Organization Details Recorded Time Appendectomy completed Ras Rizvi MA [facility] 03/26/2016 14:25:25 Tubal Ligation completed Ras Rizvi MA [facility] 03/26/2016 14:25:32 Removal of ovarian cyst(s) completed Ras Rizvi MA [facility] 03/26/2016 14:26:19 Imaging Results None recorded. Procedure Notes None recorded. Medical Equipment None Reported. Allergies Allergen ID Allergen Name Allergen Category Reaction Reaction Severity Criticality Documentation Date Start Date Code Code System Note Provider Name and Address Organization Details Recorded Time 47615 Product containin g penicilli n (product) medicatio n hives Not available Not available 03/26/2016 45921 8001 SNOMED Not Available Not Available Not [...] Details Last Updated DateTime 7 167.64 cm 036796. 11 g 41.6 kg/m2 98.2 [degF] 99 % 99 % 89 /min 156 mm[Hg] 112 mm[Hg] Ras Rizvi MA [facility] 7 14:34:37 Social History Question Answer Notes LastModified by Organizat ion Details LastModified Time Tobacco Smoking Status Former Smoker cigarettes Ras Rizvi MA null, [facility] 03/26/2016 14:29:25 What Is Your Level Of [...] Bone Problems Y Acid Reflux (GERD) Y Asthma Y Allergies Y High Cholesterol Y Headaches Y Gynecological HistoryNo gynecological history recorded. Obstetrics History GPAL:G 0 P 0 0 0 0 Past Encounters Encounter ID Performer Location Encounter Start Date Encounter Closed Date Diagnosis/Indication Diagnosis SNOMED-CT Code Diagnosis ICD10 Code Diagnosis Note [id number] Jill Ramirez MD [facility] (Adult [facility]) [address] [place] [id number] 03/26/2016 13:59:19 03/26/2016 16:16:17 Vitamin D deficiency 42287038 E55.9 sHE IS ON otc CALCIUM/ TAMIN DAILY. Bipolar disorder 5449606 4 F31.9 sHE HAS SEEN A psychiatri st [place] [facility] Polycystic ovaries 67712 008 E28.2 oN mETFORMIN 1000 MG TWICE /DAY FROM HER GYNECOLOGI ST. Essential hypertension 61977166 I10 History of gastroesophageal reflux disease 7989352065 9106 Z87.19 Acid reflux 041419754 K2 1.9 Chronic low back pain 27 0809453 M54.5 Morbid obesity 951061749 E66.01 Adult heal th examination 786184398 Z00.01 [id number] KATERINA [facility] [place] [address] [place] [address] 07/23/2019 12:57:17 07/24/2019 11:22:50 Suspected COVID-19 848829609 Z03.818 D/w pt the current pandemic of COVID-19 and call for social isolation in order to blunt the curve and minimize risk and spread. Encouraged patient and family to take restrictio ns seriously. They have verbalized understand ing of such. Viral syndrome 082879466 B34.9 Health Concerns Section Related Observation LastModified by Organization Detai ls LastModified Time None Recorded Concern Status LastModified by Organization Details LastModified Time None Recorded Advance Directives Directive None Recorded Payers Encounter Date Sequence Insurance Name Policy Number Policy Yun Covered Member ID Yun Member ID Guarantor Name 03/26/2016 1 [facility] [id number] Amrita R Orahood [id number] Amrita R Orahood 03/26/2016 2 [place] [facility] Amrita R Orahood [id number] Amrita R Orahood 07/23/2019 1 [facility] ED [id number] Amrita R Orahood [id number] Amrita R Orahood 07/23/2019 2 [place] [facility] Amrita R Orahood [id number] Amrita R Orahood Notes Date Note Type [...] COVID-19. ZACHARY Diaz NP Attn: Accounting,[address] [facility], [place], [address], [facility] 07/23/2019 14:15:23 OBGyn Episode No OBEpisode recorded.
== END 2024-06-01 15:36 | disposition home or self-care (01) ==
PROVIDERS: PCP Nurse Practitioner; Visit Provider Nurse Practitioner Obstetrics & Gynecology
DX: Z12.31 Encounter for screening mammogram for malignant neoplasm of breast (principal)
CPT/HCPCS: 77063; 77067

== ENCOUNTER 2024-08-30 17:12 | Observation (INO) | payer OTHER, SELFPAY ==
[2024-08-30] VITALS (11 sets, daily range): BP systolic 91–144; BP diastolic 78–108; PULSE 69–86; RESP 15–20; TEMP 36.4–36.9; O2SAT 90–98; BMI 33.5
--- NOTE | ~2024-08-30 | NM_ITS ---
EXAMINATION: NM karlo stress w perfusion DATE: 08/31/2024 12:36 CDT INDICATION: Chest pain TECHNIQUE: Rest images were obtained following intravenous administration of 10.6 mCi Tc99m 34.3. The patient was infused intravenously with Lexiscan (regadenoson). Then, mCi Tc99m tetrofosmin (Myoview) was administered intravenously, and stress images were obtained. Data was reconstructed into short a xis and horizontal and vertical long axis SPECT images. Gated SPECT images were also obtained. COMPARISON: None. FINDINGS: There is no definite reversible or fixed perfusion abnormality to suggest ischemia or infar ction. There is no segmental wall motion abnormality. Left ventricular ejection fraction measures 5 4%. IMPRESSION: 1. No definite ischemia or infarct. 2. Decreased left ventricular ejection fraction measuring 54%. Reviewed, dictated and finalized at location A.
--- NOTE | ~2024-08-30 | XR_ITS ---
CHEST RADIOGRAPH CLINICAL HISTORY: chest pain . COMPARISON: 05/03/2024 TECHNIQUE: Single portable view of the chest. FINDINGS The cardiomediastinal silhouette is unremarkable. The lungs are clear. IMPRESSION: No focal infiltrate or effusion. Reviewed, dictated and finalized at location A.
--- NOTE | 2024-08-30 17:13 | ECG_ITS ---
Test Date: 2024-08-30 17:22:29 Measurements Intervals [place] Rate: 69 P: 51 SD: 161 QRS: 187 QRSD: 93 T: -86 QT: 392 QTc: 423 Interpretive Statements SINUS RHYTHM POSSIBLE LEFT ATRIAL ENLARGEMENT [-0.1mV P WAVE IN V1/V2] INCOMPLETE RIGHT BUNDLE BRANCH BLOCK [90+ ms QRS DURATION, TERMINAL R IN V1/V2, 40+ ms S IN I/aVL/V4/V5/V6] ANTEROSEPTAL MYOCARDIAL INFARCTION , OF INDETERMINATE AGE [40+ ms Q WAVE IN V1-V4] ST-T WAVE CHANGES; CONSIDER ISCHEMIA Compared to ECG 05/03/2024 20:26:48 Incomplete right bundle-branch block now present Myocardial infarct finding now present Left-axis deviation no longer present ischemia still present Electronically Signed On 08-31-2024 16:05:26 CDT by Richard Wynn M.D.
--- OUTSIDE RECORDS SUMMARY | 2024-08-30 17:15 | XMS_ITS | Referral Summary ---
Author Organization [facility] [place] [address] Address [address] [place] [address] Care Team Providers Care Engraver Set Up Operator Name Role Phone Mike Mullen NP Primary Care Provider +1- [phone] Encounters Date Type Department Care Team Description 08/20/2024 Telephone [facility] Medical [facility] Cardiology [address] [place] [phone] Pietro Diaz MD 08/20/2024 2:30 PM CDT Office Visit [facility] Cardiology [address] [place] [phone] Pietro Diaz MD Lipid screening (Primary Dx); Chest pain on breathing; Abnormal EKG 07/17/2024 Telephone [facility] Medical Group Cardiology at [address] [place] [address] Brandon Chua MD from Last 3 Months Allergies Active Allergy Reactions Criticality Noted Date Comments Penicillins Hives,Urticaria Medium 06/07/1981 Hives Other reaction(s): Urticaria Medications ProAir HFA 90 mcg/actuation inhaler 12/03/2022 Active amLODIPine (NORVASC) 10 mg tablet Take 1 tablet (10 mg total) by mouth daily Active ARIPiprazole (ABILIFY) 5 mg tablet Active busPIRone (BUSPAR) 30 mg tablet Take 1 tablet (30 mg total) by mouth 3 (three) times a day Active DULoxetine DR (CYMBALTA) 20 mg capsule 11/15/2023 Active famotidine (PEPCID) 40 mg tablet 07/17/2024 Active fenofibrate (TRICOR) 54 mg tablet 12/03/2022 Active fluticasone propionate (FLONASE) 50 mcg/actuation nasal spray 06/24/2020 Active hydrOXYzine (ATARAX) 50 mg tablet 09/13/2019 Active Jardiance 10 mg tablet 07/17/2024 Active levothyroxine sodium (TIROSINT) 25 mcg capsule 12/20/2018 Active metFORMIN (GLUCOPHAGE) 1,000 mg tablet Take 1 tablet twice a day by oral route. 12/23/2009 Active nystatin powder 01/18/2023 Act saray propranolol LA (INDERAL LA) 120 mg 24 hr capsule Take 1 capsule (120 mg total) by mouth daily Active rOPINIRole XL (REQUIP XL) 4 mg 24 hr tablet 09/19/2015 Act saray topiramate (TOPAMAX) 100 mg tablet Take 1 tablet (100 mg total) by mouth 2 (two) times a day 07/18/2024 Active traZODone (DESYREL) 50 mg tablet Take 1 tablet (50 mg total) by mouth daily Active Viibryd 40 mg tablet 05/14/2015 Active aspirin 81 mg enteric coated tablet Take 1 tablet (81 mg total) by mouth daily Active multivitamin tabletIndicatio ns:Vitamin Deficiency Prevention Take 1 tablet by mouth Active calcium carbonate (OS-CARRIE) 650 mg (260 mg elemental) tablet,chewable 600 mg Acti ve ascorbic acid (ascorbic acid with anne marie hips) 500 mg tablet,chewable Acti ve cholecalciferol (VITAMIN D-3) 2000 unit capsule 2.5 capsules (5,000 Units total) Active vitamin B complex capsule Take 1 capsule by mouth daily Active Active Problems Problem Noted Date Diagnosed Date Abnormal EKG 08/20/2024 Chest pain on breathing 08/20/2024 Social History Tobacco Use Types Packs/Day Years Used Date Smoking Tobacco: Former Cigarettes Tobacco Cessation:Counseling Given: Not Answered Comments Unknown Sex and Gender Information Value Date Recorded Sex Assigned at Not on file 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 Gender Identity Female 07/30/2024 1:33 PM CDT Sexual Orientation Straight 07/30/2024 1: 33 PM CDT Last Filed Vital Signs Vital Sign Reading Time Taken Comments Blood Pressure 129/67 09/26/2014 7:45 PM CDT Pulse 70 08/20/2024 2:12 PM CDT Temperature 36.9 C (98.5 F) 09/26/2014 7:45 PM CDT Respiratory Rate 14 08/20/2024 2:12 PM CDT Oxygen Saturation 94% 08/20/2024 2:12 PM CDT Inhaled Oxygen Concentration - - Weight 95.3 kg (210 lb) 08/20/2024 2:12 PM CDT Height 167.6 cm (5' 6) 08/20/2024 2:12 PM CDT Body Mass Index 33.89 08/20/2024 2:12 PM CDT Plan of Treatment Not on file Procedures Procedure Name Priority Date/Time Associated Diagnosis Comments ELECTROCARDIOGRAM REPORT Routine 025 2:28 PM CDT Chest pain on breathing Abnormal EKG POCT LIPID PANEL Routine 08/20/2024 2:21 PM CDT Lipid screening from Last 3 Months Results * Electrocardiogram Report (08/20/2024 2:28 PM CDT) Pietro Diaz MD ECG ORDERABLES Final Re sult * (ABNORMAL) POCT lipid panel (08/20/2024 2:21 PM CDT) Cholesterol, POC 187 <200 MG/DL HDL, POC 28(A) >=40 mg/dL Triglycerides, POC 194(A) <=149 mg/dL LDL Cholesterol POC 121 <=129 mg/dL Chol/HDL Ratio, POC 6.8 NONE Non-HDL Cholesterol, POC 159 NONE mg/dL Cholesterol Total, POC 187 30 - 199 mg/dL Capillary blood 08/20/2024 2 :21 PM CDT Pietro Diaz MD POINT OF CARE TEST ORDER SANDOR Final Result from Last 3 Months Insurance Care Teams Engraver Set Up Operator Relationship Specialty Start Date End Date Mike Mullen NP [address] [place] [address] [place] [id number] PCP - General Pain Management 09/25/20
--- OUTSIDE RECORDS SUMMARY | 2024-08-30 17:15 | XMS_ITS | Clinical Summary ---
Author Organization [facility] [place] [address] Address [address] [place] [address] Care Team Providers Care Cobbler Upper Name Role Phone Mike Mullen NP Primary Care Provider +1- [phone] Allergies Active Allergy Reactions Criticality Noted Date [...] EKG 08/20/2024 Chest pain on breathing 08/20/2024 Encounters Date Type Department Care Team Description 08/20/2024 2:30 PM CDT Office Visit [facility] Medical Group Cardiology [address] [place] [phone] Pietro Diaz MD Lipid screening (Primary Dx); Chest pain on breathing; Abnormal EKG 08/20/2024 Telephone [facility] Medical [facility] Cardiology [address] [place] [phone] Pietro Diaz MD 07/17/2024 Telephone [facility] Medical Group Cardiology at [address] [place] [address] Brandon Chua MD from Last 3 Months Medical History Medical History Date Comments Shortness of breath Chest pain Family History Medical History Relation Name Comments Diabetes Father Diabetes Mother Relation Name Status Comments Father Mother Social History Tobacco Use Types Packs/Day Years Used Date Smoking Tobacco: Former Cigarettes Tobacco Cessation:Counseling Given: Not Answered Comments Unknown Sex and Gender Information Value Date Recorded Sex Assigned at Not on file 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 Gender Identity Female 07/30/2024 1:33 PM CDT Sexual Orientation Straight 07/30/2024 1: 33 PM CDT Obstetrics History Last Filed Vital Signs Vital Sign Reading [...] 08/20/2024 2:12 PM CDT Plan of Treatment Health Maintenance Due Date Last Done Comments Breast Cancer Screening-Mammogram 1970 Cervical Cancer Screening 1970 Colon Cancer Screening-Colonoscopy 1970 Depression Screening 1970 Hepatitis C Screening 1970 Regular Well Visit/Exam 18-64 02/12/1986 Influenza Vaccine (#1) 2024 , 12/11/2021, 11/21/2020, Additional history exists DTaP/Tdap/Td Vaccine (3 - Td or Tdap) 06/24/2032 06/24/2022, 11/14/2018 Zoster Vaccine Completed 01/19/2019, 11/14/2018 Hepatitis B Screening Completed 06/24/2022 Pneumococcal vaccine <65 Aged Out 06/24/2022 No longer eligible based on patient's age to complete this topic Covid-19 Vaccine Completed 12/13/2023, , 08/19/2021, Additional history exists Procedures Procedure Name Priority Date/Time Associated Diagnosis [...] from Last 3 Months Insurance Care Teams Cobbler Upper Relationship Specialty Start Date End Date Mike Mullen NP [address] [facility] [place] [address] PCP - General Pain Management 09/25/20
--- NOTE | 2024-08-30 17:30 | ED.CHESTPAIN ---
HPI - Chest Pain General Chief Complaint: Chest Pain Stated Complaint: chest tightness, SOB Time Seen by Provider: 08/30/24 17:25 Source: patient Mode of arrival: ambulatory Limitations: no limitations History of Present Illness HPI narrative: 54-year-old female presenting for chest pain. Started about an hour ago. She has also been complaining of some shortness of breath (ongoing for months. Chest pain is central in her chest and goes into both arms. Related Data Home Medications ?Medication ?Instructions ?Recorded ?Confirmed ?Last Taken ?Type fenofibrate 54 mg tablet 54 mg PO DAILY 09/25/20 05/03/24 05/03/24 History hydroxyzine HCl 50 mg tablet 50 mg PO BID PRN Anxiety 09/25/20 05/03/24 05/02/24 History levothyroxine 25 mcg tablet 25 mcg PO DAILY 09/25/20 05/03/24 05/03/24 History (Euthyrox) metformin 1,000 mg tablet 1,000 mg PO BID 09/25/20 05/03/24 05/03/24 History omeprazole 40 mg capsule,delayed 40 mg PO DAILY 09/25/20 05/03/24 05/03/24 History release propranolol 120 mg capsule,24 120 mg PO DAILY 09/25/20 05/03/24 05/03/24 History hr,extended release topiramate 50 mg tablet 100 mg PO BID 09/25/20 05/03/24 05/03/24 History vilazodone 40 mg tablet (Viibryd) 40 mg PO HS 09/25/20 05/03/24 05/02/24 History amlodipine 10 mg tablet 10 mg PO DAILY 01/07/22 05/03/24 05/03/24 History metoclopramide HCl 10 mg tablet 10 mg PO BID 01/07/22 05/03/24 05/03/24 History ropinirole 1 mg tablet 4 mg PO DAILY 01/07/22 05/03/24 05/03/24 History buspirone 30 mg tablet 30 mg PO TID 01/11/23 05/03/24 05/03/24 History albuterol sulfate 90 mcg/actuation 1 inh inhalation Q4H PRN Dyspnea 08/09/23 05/03/24 04/30/24 History aerosol inhaler aripiprazole 5 mg tablet 5 mg PO DAILY 08/09/23 05/03/24 05/03/24 History fluticasone propionate 50 1 spray intranasal Q12H PRN 08/09/23 05/03/24 05/02/24 History mcg/actuation nasal allergy symptoms spray,suspension (Flonase Allergy Relief) pregabalin 100 mg capsule 100 mg PO TID 08/09/23 05/03/24 05/03/24 History trazodone 50 mg tablet 50 mg PO QHS PRN Insomnia 08/09/23 05/03/24 05/02/24 History ascorbic acid (vitamin C) 500 mg 500 mg PO DAILY 08/10/23 05/03/24 05/03/24 History tablet (Vitamin C) cholecalciferol (vitamin D3) 25 25 mcg PO DAILY 08/10/23 05/03/24 05/03/24 History mcg (1,000 unit) capsule (Vitamin D3) multivitamin 1 tablet PO DAILY 08/10/23 05/03/24 05/03/24 History vitamin B complex 1 tablet PO DAILY 08/10/23 05/03/24 05/03/24 History biotin 1,000 mcg chewable tablet 1,000 mcg PO DAILY 10/13/23 05/03/24 05/03/24 History aspirin 81 mg tablet,delayed 81 mg PO DAILY 11/08/23 05/03/24 05/03/24 History release magnesium 250 mg tablet 250 mg PO DAILY 01/18/24 05/03/24 05/03/24 History Allergies Allergy/AdvReac Type Severity Reaction Status Date / Time Penicillins Allergy Unknown Rash Verified 08/30/24 17:41 Review of Systems Review of Systems: All systems reviewed & are unremarkable except as noted in HPI and below (HPI) [facility] Past Medical History Medical History Depression Scoliosis Back pain Irritable bowel syndrome Sleep apnea Migraine Asthma Acid reflux Hypothyroidism Vaginal delivery x2 Fibromyalgia Disorder of thyroid Anxiety High cholesterol Surgical History Surgical History H/O removal of cyst tailbone History of colposcopy History of appendectomy H/O tubal ligation Family History Family History Mother Diabetes mellitus Hypertension Hyperlipidemia DVT (deep venous thrombosis) Father Hyperlipidemia Hypertension ALS (amyotrophic lateral sclerosis) Sibling , MVC No problems noted. Sibling No problems noted. Social History Social History Social History: Patient lives with her Jaun mendenhallates as her emergency contact. She is disabled and does not work. She has 2 living children. she reports smoking in the past but stopped 20 years ago. Smoking status: Never smoker Tobacco type: cigarettes Second hand tobacco smoke exposure: Yes Alcohol intake: never Substance use: never Substance use type: does not use Do You Feel Safe in your Home?: Yes Lack of Transportation: No Lack of Food: Never True Current Housing: I Have Housing Concerned About Future Housing: No Difficulty Paying Gas/Electric Bills: No Difficulty Paying for Meds: No Currently Unemployed: No Education: High School Diploma/GED Difficulty w/ Childcare or Family Care: No Living arrangements: with family Occupation/Education: unemployed Additional occupation/education comments: disabled Gender identity (if verbalized by the patient): Female Spiritual care concerns: No Exam Narrative: Constitutional: Generally well appearing, no acute distress Head: Atraumatic, no deformities. Eyes: Pupils equal, round, and reactive to light. Neck: Supple, no tracheal deviation, no JVD. ENMT: Mucous membranes moist Cardiovascular: S1, S2 auscultated. No murmurs, rubs, or gallops. No S3/S4. Normal Distal pulses. No peripheral edema. Respiratory: Lung sounds equal. No wheezes, rales, or rhonchi. Gastrointestinal: Abdomen was soft and non-tender. Non-distended. No rebound or guarding. Genitourinary: Deferred Musculoskeletal: Normal muscle tone and bulk. No obvious deformities or tenderness over extremities. Skin: No rashes. Neurological: Strength 5/5 in extremities. Cranial nerves I-XII grossly intact. Distal sensation intact. Mental Status: Awake, alert and oriented x3. Follows commands Course Vital Signs Vital signs: Vital Signs Pulse Rate 73 08/30/24 17:15 Respiratory Rate 20 08/30/24 17:15 Blood Pressure 116/81 08/30/24 17:15 Pulse Oximetry 96 08/30/24 17:15 Pulse Rate 69 08/30/24 19:01 Respiratory Rate 15 08/30/24 19:01 Blood Pressure 114/90 08/30/24 19:01 Pulse Oximetry 94 08/30/24 19:01 Oxygen Delivery Room Air 08/30/24 17:29 MDM - Chest Pain MDM Narrative Medical decision making narrative: Patient immediately brought back to room after EKG in triage was somewhat concerning for ischemia. I reviewed the EKG and it is somewhat concerning with some ST elevation in AVR, some T-wave inversions in anterior leads and some ST depression in lead 1 however on review of EMR, she had an EKG in 05/03/24 which shows essentially the exact same picture of ST elevation in AVR and depression in lead 1. This is more reassuring. Attending cardiac workup. Given aspirin and nitro. Lab Data 08/30/24 17:40 08/30/24 17:40 Labs: Lab Results 08/30/24 08/30/24 08/30/24 Range/Units 17:40 20:29 20:29 WBC 12.1 H (4.5-10.0) K/mm3 RBC 5.85 H (4.2-5.4) M/mm3 Hgb 16.9 H (12.0-15.0) g/dL Hct 53.1 H (37.0-47.0) % MCV 90.8 (80-100) fl MCH 28.9 (26-34) pg MCHC 31.8 L (32-36) g/dl RDW 14.6 H (11.5-14.5) % Plt Count 322 (150-375) k/mm3 MPV 11.6 H (7.4-10.4) fl Immature Gran % (Auto) 0.2 (0-0.5) % Neut % (Auto) 44.4 L (45.5-73.1) % Lymph % (Auto) 46.2 H (18.3-44.2) % Cecil % (Auto) 6.7 (2.6-8.5) % Eos % (Auto) 1.8 (0-4.4) % Baso % (Auto) 0.7 (0.2-1.2) % Lymph # (Auto) 5.59 H (0.9-3.2) K/mm3 Cecil # (Auto) 0.8 H (0.1-0.6) K/mm3 Eos # (Auto) 0.2 (0-0.3) K/mm3 Baso # (Auto) 0.1 (0.0-0.1) K/mm3 Abs Immat Gran (auto) 0.03 (0.00-0.031) K/mm3 Absolute Neuts (auto) 5.4 (1.3-6.7) K/mm3 Absolute Nucleated RBC 0.000 (0.0-0.012) K/mm3 Nucleated RBC % 0.0 (0.0-0.2) % PT 13.7 (11.1-14.7) Seconds INR 1.1 APTT 28.5 (22.3-36.8) Seconds Sodium 147 H (137-145) mmol/L Potassium 4.2 (3.4-5.0) mmol/L Chloride 112 H (98-107) mmol/L Carbon Dioxide 18 L (22-30) mmol/L Anion Gap 17 H (4-12) mmol/L BUN 31 H (7-17) mg/dL Creatinine 2.11 H (0.7-1.0) mg/dL Estim Creat Clear Calc 32 ml/min Estimated GFR 24 L (59 - ) Glucose 102 (65-110) mg/dL Calcium 10.6 H (8.4-10.2) mg/dL Total Bilirubin 0.8 (0.2-1.3) mg/dL AST 47 H (14-36) U/L ALT 18 (6-35) U/L Alkaline Phosphatase 43 (38-126) U/L Troponin I 0.012 Pending (0.000-0.034) ng/mL NT-Pro-B Natriuret Pep Pending Cancelled Total Protein 8.5 H (6.3-8.2) g/dL Albumin 4.7 (3.5-5.1) g/dL Lipase 193 (23-300) U/L Discharge Plan Discharge Clinical Impression: Chest pain Qualifiers: Chest pain type: unspecified Qualified Code(s): R07.9 - Chest pain, unspecified Patient Disposition: Still a Patient Condition: Stable Patient Language: Prydeinig Prescriptions: No Action magnesium 250 mg tablet 250 mg PO DAILY amlodipine 10 mg tablet 10 mg PO DAILY metoclopramide HCl 10 mg tablet 10 mg PO BID pregabalin 100 mg capsule 100 mg PO TID fluticasone propionate [Flonase Allergy Relief] 50 mcg/actuation spray,suspension 1 spray intranasal Q12H PRN (Reason: allergy symptoms) Rx Instructions: administer into each nostril aripiprazole 5 mg tablet 5 mg PO DAILY trazodone 50 mg tablet 50 mg PO QHS PRN (Reason: Insomnia) albuterol sulfate 90 mcg/actuation HFA aerosol inhaler 1 inh inhalation Q4H PRN (Reason: Dyspnea) aspirin 81 mg tablet,delayed release (DR/EC) 81 mg PO DAILY hydroxyzine HCl 50 mg tablet 50 mg PO BID PRN (Reason: Anxiety) omeprazole 40 mg capsule,delayed release(DR/EC) 40 mg PO DAILY levothyroxine [Euthyrox] 25 mcg tablet 25 mcg PO DAILY metformin 1,000 mg tablet 1,000 mg PO BID Patient Comments: Prescribed for PCOS not for diabetes fenofibrate 54 mg tablet 54 mg PO DAILY propranolol 120 mg capsule,extended release 24 hr 120 mg PO DAILY topiramate 50 mg tablet 100 mg PO BID vilazodone [Viibryd] 40 mg tablet 40 mg PO HS ropinirole 1 mg tablet 4 mg PO DAILY buspirone 30 mg tablet 30 mg PO TID losartan 100 mg tablet 100 mg PO DAILY 7 Days Qty: 7 0RF multivitamin Tablet 1 tablet PO DAILY ascorbic acid (vitamin C) [Vitamin C] 500 mg Tablet 500 mg PO DAILY vitamin B complex Tablet 1 tablet PO DAILY cholecalciferol (vitamin D3) [Vitamin D3] 25 mcg (1,000 unit) Capsule 25 mcg PO DAILY biotin 1,000 mcg Tablet,Chewable 1,000 mcg PO DAILY nystatin 100,000 unit/gram cream 1 applic topical BID Qty: 30 0RF Rx Instructions: apply a thin layer to affect areas twice daily for rash. (groin) nystatin 100,000 unit/gram powder 1 applic topical DAILY Qty: 30 0RF Rx Instructions: apply a thin layer to groin and beneath breasts daily to prevent rashes Follow-up/Referrals: Sebas,Mike Aaron APRN [Primary Care Provider] - Time of Disposition: 21:01
[2024-08-30] MEDS: SODIUM CHLORIDE 0.9% IV 1,000 ML 999 ML IV CONT (17:39)
[2024-08-30] MEDS: ASPIRIN 81 MG CHEWABLE TABLET 324 MG PO (17:39)
[2024-08-30 17:46] LABS: Hematocrit 53.1 % (37.0-47.0); Hemoglobin 16.9 g/dL (12.0-15.0); Immature Granulocyte Percent A 0.2 % (0-0.5); Lymphocytes Absolute Auto 5.59 K/mm3 (0.9-3.2); Mean Corpuscular HGB Conc 31.8 g/dl (32-36); Mean Corpuscular Hemoglobin 28.9 pg (26-34); Mean Corpuscular Volume 90.8 fl (80-100); Nucleated Red Blood Cells Absolute Auto 0.000 K/mm3 (0.0-0.012); Nucleated Red Blood Cells Perc 0.0 % (0.0-0.2); Platelet Count Result 322 k/mm3 (150-375); Red Blood Count 5.85 M/mm3 (4.2-5.4); White Blood Count 12.1 K/mm3 (4.5-10.0)
[2024-08-30 18:01] LABS: Alanine Aminotransferase 18 U/L (6-35); Albumin Level 4.7 g/dL (3.5-5.1); Alkaline Phosphatase 43 U/L (38-126); Anion Gap 17 mmol/L (4-12); Aspartate Amino Transferase 47 U/L (14-36); Bilirubin,Total 0.8 mg/dL (0.2-1.3); Blood Urea Nitrogen 31 mg/dL (7-17); Calcium 10.6 mg/dL (8.4-10.2); Carbon Dioxide 18 mmol/L (22-30); Chloride 112 mmol/L (98-107); Estimated CRCL calculation 32 ml/min; Estimated Glomerular Filt Rate 24; Glucose 102 mg/dL (65-110); Lipase 193 U/L (23-300); Potassium 4.2 mmol/L (3.4-5.0); Sodium 147 mmol/L (137-145); Total Protein 8.5 g/dL (6.3-8.2)
[2024-08-30 18:12] LABS: Troponin I 0.012 ng/mL (0.000-0.034)
[2024-08-30 18:17] LABS: INR 1.1; Partial Thromboplastin Time 28.5 Seconds (22.3-36.8); Prothrombin Time 13.7 Seconds (11.1-14.7)
--- OUTSIDE RECORDS SUMMARY | 2024-08-30 18:53 | XMS_ITS | Referral Summary ---
Author Organization [facility] [place] [address] Address [address] [place] [address] Care Team Providers Care Stereotype Molder Name Role Phone Mike Mullen NP Primary Care Provider +1- [phone] Encounters Date Type Department Care Team Description 08/20/[address] [facility] Medical [facility] Cardiology [address] [place] [phone] Pietro Diaz MD 08/20/2024 2:30 PM CDT Office Visit [facility] Cardiology [address] [place] [phone] Pietro Diaz MD Lipid screening (Primary Dx); Chest pain on breathing; Abnormal EKG 07/17/[address] 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
--- OUTSIDE RECORDS SUMMARY | 2024-08-30 18:53 | XMS_ITS | Clinical Summary ---
Author Organization [facility] [place] [address] Address [address] [place] [address] Care Team Providers Care Resident Services Coordinator Name Role Phone Mike Mullen NP Primary Care Provider +1- [phone] Allergies Active Allergy Reactions Criticality Noted Date [...] Description 08/20/2024 2:30 PM CDT Office Visit [facility] Medical Group Cardiology [address] [place] [phone] Pietro Diaz MD Lipid screening (Primary Dx); Chest pain on breathing; Abnormal EKG 08/20/2024 Telephone [facility] Medical [facility] Cardiology [address] [place] [phone] Pietro Diaz MD 07/17/2024 Telephone [facility] Medical Group Cardiology at [address] [place] [address] Brandon Chua MD from Last [...] on file 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
--- NOTE | 2024-08-30 19:20 | PC.NURSE ---
Received report from MARQUIS Rhoades for cont. of care. Pt AOx4 reports 3/0 chest pain non radiating, pt on vegetable worker and cont. pulse oximeter.
[2024-08-30 21:05] LABS: NT Pro B Type Natriuretic Pept 4070 pg/mL (19.9-100); Troponin I < 0.012 ng/mL (0.000-0.034)
[2024-08-30 21:46] LABS: Anion Gap 14 mmol/L (4-12); Blood Urea Nitrogen 33 mg/dL (7-17); Calcium 10.3 mg/dL (8.4-10.2); Carbon Dioxide 19 mmol/L (22-30); Chloride 113 mmol/L (98-107); Estimated CRCL calculation 34 ml/min; Estimated Glomerular Filt Rate 26; Glucose 97 mg/dL (65-110); Potassium 4.2 mmol/L (3.4-5.0); Sodium 146 mmol/L (137-145)
[2024-08-30 22:16] LABS: Influenza A QL RT-PCR Negative (Negative); Influenza B QL RT-PCR Negative (Negative); RSV RNA, RT-PCR Negative (Negative); SARS-CoV-2 RNA PCR Negative (Negative)
--- NOTE | 2024-08-30 22:17 | PC.NURSE ---
pt placed on 2L via NC for oxygen saturation 89-90%, RA. Pt oxygen saturation now 94%.
--- NOTE | 2024-08-30 22:44 | ADMGEN ---
This patient, Amrita Hartman, was admitted to IMU Room 209-01 on 08/30/24 at 2237. Patient/family oriented to hospital policies and general routines including ID bracelet, bed and alarms, visiting hours, pain management, procedures, bathroom and other care routines, personal items, smoking policy, room service/diet, and visiting hours. Information on how to activate the Rapid Response Team has been discussed. Patient/Family are encouraged to report perceived risks to care and to ask questions if they do not understand what they are told or what they should do.
[2024-08-31] VITALS (13 sets, daily range): BP systolic 120–153; BP diastolic 86–110; PULSE 75–84; RESP 16–20; TEMP 36.1–36.9; O2SAT 92–100
--- NOTE | 2024-08-31 | EST_ITS ---
Patient Info Name: Amrita Hartman Age: 54 years : 1970 Gender: Female Ht: 66 in Wt: 207 lbs BSA: 2.13 m2 HR: 77 bpm BP: 137 / 100 mmHg Exam Date: 08/31/2024 1:11 AM Patient Status: I Admit Date: 08/30/2024 Exam Type: CA stress karlo w NM A regadenoson stress test was performed. Staff Referring Physician: Yusra Dennison Attending Provider: Yusra Dennison Nurse: Martha Gilliland Exercise Technologist: Alycia Palencia Summary 1. No abnormal ST-T wave changes other than the baseline abnormalities with lexiscan. 2. Please correlate with nuclear medicine images, reported separately. Protocol: Lexiscan Stress ECG Details Stage: REST Duration (min): 4 min : 9 sec HR (bpm): 76 SBP (mmHg): 137 DBP (mmHg): 100 Stage: RECOVERY Duration (min): 1 min : 0 sec HR (bpm): 84 SBP (mmHg): 133 DBP (mmHg): 100 Stage: RECOVERY Duration (min): 2 min : 0 sec HR (bpm): 84 SBP (mmHg): 133 DBP (mmHg): 100 Stage: RECOVERY Duration (min): 3 min : 5 sec HR (bpm): 84 SBP (mmHg): 145 DBP (mmHg): 97 Stage: STAGE 1 Duration (min): 1 min : 0 sec HR (bpm): 78 SBP (mmHg): 133 DBP (mmHg): 100 Stage: REST Duration (min): 1 min : 12 sec HR (bpm): 76 SBP (mmHg): 137 DBP (mmHg): 100 Stage: RECOVERY Duration (min): 3 min : 0 sec HR (bpm): 84 SBP (mmHg): 145 DBP (mmHg): 97 Rest HR: 76 bpm Peak HR: 85 bpm Rest Sys BP: 137 mmHg Peak Sys BP: 145 mmHg Max Pred HR: 164 bpm % Max Pred HR: 52 % Target HR: 139 bpm Max RPP: 12,325 bpm*mmHg Total Time: 1 min : 0 sec Rest Acevedo BP: 100 mmHg Peak Acevedo BP: 97 mmHg Total Dose: 0.4 mg Resting ECG Sinus rhythm with incomplete right bundle-branch block and secondary repolarization changes; cannot rule out ischemia. Stress ECG No changes other than the described baseline abnormalities. Arrhythmias None. Report Signatures
[2024-08-31 00:40] LABS: Troponin I < 0.012 ng/mL (0.000-0.034)
[2024-08-31 05:09] LABS: Hematocrit 47.6 % (37.0-47.0); Hemoglobin 15.8 g/dL (12.0-15.0); Immature Granulocyte Percent A 0.3 % (0-0.5); Lymphocytes Absolute Auto 5.33 K/mm3 (0.9-3.2); Mean Corpuscular HGB Conc 33.2 g/dl (32-36); Mean Corpuscular Hemoglobin 29.9 pg (26-34); Mean Corpuscular Volume 90.0 fl (80-100); Nucleated Red Blood Cells Absolute Auto 0.000 K/mm3 (0.0-0.012); Nucleated Red Blood Cells Perc 0.0 % (0.0-0.2); Platelet Count Result 280 k/mm3 (150-375); Red Blood Count 5.29 M/mm3 (4.2-5.4); White Blood Count 11.1 K/mm3 (4.5-10.0)
[2024-08-31 05:16] LABS: Alanine Aminotransferase 15 U/L (6-35); Albumin Level 4.1 g/dL (3.5-5.1); Alkaline Phosphatase 40 U/L (38-126); Anion Gap 11 mmol/L (4-12); Aspartate Amino Transferase 37 U/L (14-36); Bilirubin,Total 0.8 mg/dL (0.2-1.3); Blood Urea Nitrogen 35 mg/dL (7-17); Calcium 10.2 mg/dL (8.4-10.2); Carbon Dioxide 20 mmol/L (22-30); Chloride 115 mmol/L (98-107); Estimated CRCL calculation 39 ml/min; Estimated Glomerular Filt Rate 31; Glucose 97 mg/dL (65-110); Magnesium 1.6 mg/dL (1.6-2.3); Potassium 4.2 mmol/L (3.4-5.0); Sodium 146 mmol/L (137-145); Total Protein 7.5 g/dL (6.3-8.2)
--- NOTE | 2024-08-31 10:59 | P.CONCA_ITS ---
Assessment and Plan Assessment and plan (1) Chest pain: Qualifiers: Chest pain type: unspecified Qualified Code(s): R07.9 - Chest pain, unspecified Code(s): R07.9 - Chest pain, unspecified Status: Acute Assessment and Plan: Atypical chest pain. She has been ruled out for acute coronary syndrome with negative serial troponin levels. Her EKG does have some evidence of ischemia with lateral and inferior T-wave inversions. Nuclear stress test was performed this morning-awaiting results. Further recommendations to follow review of these results. (2) High cholesterol: Code(s): E78.00 - Pure hypercholesterolemia, unspecified Status: Acute Assessment and Plan: Not on statin. Check fasting lipid panel and initiate statin if indicated (3) Hypertension: Code(s): I10 - Essential (primary) hypertension Status: Acute Assessment and Plan: Above goal, particularly her diastolic blood pressure. Will start lisinopril 5 mg daily. Titrate as needed. History of Present Illness History of Present Illness Consult date/time: 08/31/24 10:59 Requesting physician: Yusra Dennison MD Consult reason: chest pain Reason For Visit: chest pain ruleout Narrative: Amrita Hartman is a 54 year old female with asthma, fibromyalgia, depression, anxiety, hyperlipidemia, irritable bowel syndrome who presents to the hospital with a chief complaint upper abdominal pain. Patient describes the pain as a ?hunger pain. ? Pain is in the epigastric region. She began experiencing this discomfort yesterday. The pain does not have any associated aggravating or alleviating factors. She reports the pain comes and goes at random. No history of cardiac problems. She does not have any shortness of breath, palpitations, swelling, orthopnea, syncope. Review of Systems 2 Review of Systems: All systems reviewed & are unremarkable except as noted in HPI and below PMFSH Past Medical History Medical History Depression Scoliosis Back pain Irritable bowel syndrome Sleep apnea Migraine Asthma Acid reflux Hypothyroidism Vaginal delivery x2 Fibromyalgia Disorder of thyroid Anxiety High cholesterol Surgical History Surgical History H/O removal of cyst tailbone History of colposcopy History of appendectomy H/O tubal ligation Family History Family History Mother Diabetes mellitus DVT (deep venous thrombosis) Hyperlipidemia Hypertension Father ALS (amyotrophic lateral sclerosis) Hyperlipidemia Hypertension Sibling No problems noted. Sibling MVA (motor vehicle accident) Social History Social History Social History: Patient lives with her Jaun mead designates as her emergency contact. She is disabled and does not work. She has 2 living children. she reports smoking in the past but stopped 20 years ago. Smoking packs per day: 0.5 Smoking cigarettes per day: 10.0 Years smoked: 0.5 Smoking pack-years: 0.25 Smoking status: Former smoker Tobacco type: cigarettes Second hand tobacco smoke exposure: Yes Alcohol intake: never Substance use: never Substance use type: does not use Do You Feel Safe in your Home?: Yes Lack of Transportation: No Lack of Food: Never True Current Housing: I Have Housing Concerned About Future Housing: No Difficulty Paying Gas/Electric Bills: No Difficulty Paying for Meds: No Currently Unemployed: No Education: High School Diploma/GED Difficulty w/ Childcare or Family Care: No Living arrangements: with family Occupation/Education: unemployed Additional occupation/education comments: disabled Gender identity (if verbalized by the patient): Female Spiritual care concerns: No Meds Home Medications and Allergies Home Medications ?Medication ?Instructions ?Recorded ?Confirmed ?Type hydroxyzine HCl 50 mg tablet 50 mg PO BID PRN Anxiety 09/25/20 08/30/24 History levothyroxine 25 mcg tablet 25 mcg PO DAILY 09/25/20 08/30/24 History (Euthyrox) metformin 1,000 mg tablet 1,000 mg PO BID 09/25/20 08/30/24 History propranolol 120 mg capsule,24 120 mg PO HS 09/25/20 08/30/24 History hr,extended release topiramate 50 mg tablet 100 mg PO BID 09/25/20 08/30/24 History vilazodone 40 mg tablet (Viibryd) 40 mg PO HS 09/25/20 08/30/24 History ropinirole 1 mg tablet 4 mg PO HS 01/07/22 08/30/24 History buspirone 30 mg tablet 30 mg PO TID 01/11/23 08/30/24 History albuterol sulfate 90 mcg/actuation 1 inh inhalation Q4H PRN shortness 08/09/23 08/30/24 History aerosol inhaler of breath or wheezing aripiprazole 5 mg tablet 5 mg PO DAILY 08/09/23 08/30/24 History fluticasone propionate 50 1 spray intranasal Q12H PRN 08/09/23 08/30/24 History mcg/actuation nasal allergy symptoms spray,suspension (Flonase Allergy Relief) pregabalin 100 mg capsule 100 mg PO Q12H 08/09/23 08/30/24 History trazodone 50 mg tablet 50 mg PO QHS PRN Insomnia 08/09/23 08/30/24 History ascorbic acid (vitamin C) 500 mg 500 mg PO DAILY 08/10/23 08/30/24 History tablet (Vitamin C) cholecalciferol (vitamin D3) 25 25 mcg PO DAILY 08/10/23 08/30/24 History mcg (1,000 unit) capsule (Vitamin D3) multivitamin 1 tablet PO DAILY 08/10/23 08/30/24 History vitamin B complex 1 tablet PO DAILY 08/10/23 08/30/24 History aspirin 81 mg tablet,delayed 81 mg PO DAILY 11/08/23 08/30/24 History release calcium carbonate 600 mg PO .EVERY AFTERNOON 08/30/24 08/30/24 History duloxetine 20 mg capsule,delayed 20 mg PO DAILY 08/30/24 08/30/24 History release empagliflozin 10 mg tablet 10 mg PO DAILY 08/30/24 08/30/24 History (Jardiance) famotidine 40 mg tablet 40 mg PO DAILY 08/30/24 08/30/24 History nystatin 100,000 unit/gram topical 1 applic topical BID PRN rash 08/30/24 08/30/24 History cream nystatin 100,000 unit/gram topical 1 applic topical DAILY PRN rash 08/30/24 08/30/24 History powder Allergies Allergy/AdvReac Type Severity Reaction Status Date / Time Penicillins Allergy Unknown Rash Verified 08/30/24 23:15 Vital Signs Vital Signs - 24 hr 08/30/24 17:15 08/30/24 17:29 08/30/24 17:35 Temperature Pulse Rate 73 70 Respiratory Rate 20 17 Blood Pressure 116/81 91/78 L Pulse Oximetry 96 96 96 Oxygen Delivery Room Air Oxygen Flow Rate 08/30/24 17:36 08/30/24 18:00 08/30/24 19:01 Temperature Pulse Rate 69 70 69 Respiratory Rate 19 15 Blood Pressure 114/90 Pulse Oximetry 90 94 Oxygen Delivery Oxygen Flow Rate 08/30/24 22:11 08/30/24 22:42 08/30/24 22:45 Temperature 36.9 C 36.4 C L Pulse Rate 76 78 78 Respiratory Rate 16 18 18 Blood Pressure 132/108 H 144/90 H Pulse Oximetry 94 98 98 Oxygen Delivery Nasal Cannula Oxygen Flow Rate 2 08/30/24 22:46 08/30/24 23:55 08/31/24 00:00 Temperature Pulse Rate 86 78 80 Respiratory Rate 16 Blood Pressure Pulse Oximetry 96 Oxygen Delivery Nasal Cannula Oxygen Flow Rate 2 08/31/24 00:00 08/31/24 02:00 08/31/24 04:00 Temperature 36.9 C Pulse Rate 78 78 81 Respiratory Rate 16 Blood Pressure 138/98 H Pulse Oximetry 96 Oxygen Delivery Oxygen Flow Rate 08/31/24 04:00 08/31/24 04:00 08/31/24 06:00 Temperature 36.6 C Pulse Rate 77 77 76 Respiratory Rate 16 16 Blood Pressure 132/98 H Pulse Oximetry 99 99 Oxygen Delivery Nasal Cannula Oxygen Flow Rate 2 08/31/24 08:00 08/31/24 08:00 08/31/24 10:00 Temperature 36.4 C L Pulse Rate 76 77 75 Respiratory Rate 20 Blood Pressure 139/98 H Pulse Oximetry 97 Oxygen Delivery Oxygen Flow Rate Exam 2 Const: General: comfortable, no acute distress, alert and awake O rientation/consciousness: patient oriented x3 HENMT: Head: normal to inspection Eyes: General: appearance normal, both eyes and all related structures P upils: Equal, round and reactive pupils present Neck: Neck: normal visual inspection, supple and no JVD Carotids: normal carotid upstroke Resp: Effort & Inspection: normal respiratory effort Auscultation: clear to auscultation bilaterally Cardio: Rate: regular rate Rhythm: regular rhythm Heart sounds: S1 normal heart sound present, S2 normal heart sound present and no murmurs GI: Auscultation: normal bowel sounds Skin: General skin exam: normal color Neuro: General: patient oriented x3 Cranial nerves: Yes Equal, round and reactive pupils present Extrem: General: normal to inspection Psych: Appearance: grossly normal Mental Status: mental status grossly normal Results Labs and Meds 08/31/24 04:25 08/31/24 04:25 Lab results: Cardiac Enzymes 08/30/24 08/30/24 08/31/24 Range/Units 17:40 20:29 00:10 AST 47 H (14-36) U/L Troponin I 0.012 < 0.012 < 0.012 (0.000-0.034) ng/mL 08/31/24 Range/Units 04:25 AST 37 H (14-36) U/L Troponin I (0.000-0.034) ng/mL Coagulation 08/30/24 Range/Units 17:40 PT 13.7 (11.1-14.7) Seconds APTT 28.5 (22.3-36.8) Seconds CBC 08/30/24 08/31/24 Range/Units 17:40 04:25 WBC 12.1 H 11.1 H (4.5-10.0) K/mm3 RBC 5.85 H 5.29 (4.2-5.4) M/mm3 Hgb 16.9 H 15.8 H (12.0-15.0) g/dL Hct 53.1 H 47.6 H (37.0-47.0) % Plt Count 322 280 (150-375) k/mm3 Lymph # (Auto) 5.59 H 5.33 H (0.9-3.2) K/mm3 [place] # (Auto) 0.8 H 0.8 H (0.1-0.6) K/mm3 Eos # (Auto) 0.2 0.2 (0-0.3) K/mm3 Baso # (Auto) 0.1 0.1 (0.0-0.1) K/mm3 Comprehensive Metabolic Panel 08/30/24 08/30/24 08/31/24 Range/Units 17:40 21:31 04:25 Sodium 147 H 146 H 146 H (137-145) mmol/L Potassium 4.2 4.2 4.2 (3.4-5.0) mmol/L Chloride 112 H 113 H 115 H (98-107) mmol/L Carbon Dioxide 18 L 19 L 20 L (22-30) mmol/L BUN 31 H 33 H 35 H (7-17) mg/dL Creatinine 2.11 H 1.97 H 1.70 H (0.7-1.0) mg/dL Glucose 102 97 97 (65-110) mg/dL Calcium 10.6 H 10.3 H 10.2 (8.4-10.2) mg/dL AST 47 H 37 H (14-36) U/L ALT 18 15 (6-35) U/L Alkaline Phosphatase 43 40 (38-126) U/L Total Protein 8.5 H 7.5 (6.3-8.2) g/dL Albumin 4.7 4.1 (3.5-5.1) g/dL Intake and Output 08/30/24 08/31/24 08/31/24 23:59 07:59 15:59 Intake Total 1000 0 Output Total 200 Balance 800 0 Intake: IV 1000 Sodium Chloride 0.9% IV 1,000 1000 ml @ 999 mls/hr IV CONT .Q1H1M STA Rx#:[id number] Oral 0 Output: Urine 200 Other: Number of Bowel Movements Today 0 Patient Weight 08/31/24 23:59 Weight 94.1 kg
[2024-08-31] MEDS: PREGABALIN (*CRX) 50 MG CAPSULE 100 MG PO ×2 (12:27→20:40)
[2024-08-31] MEDS: CALCIUM CARBONATE (OSCAL) 500 MG TABLET PO (14:43)
--- NOTE | 2024-08-31 15:06 | PM.IMHP ---
H&P: HPI History of Present Illness Date/Time: 08/31/24 15:06 Chief Complaint: chest pain Narrative: 54 yo female with PMH of depression, back pain, IBS, Migrain, ASthma, Hypothyroidism, Fibromylgia, anxiety HLD who presented to the ER on account of chest pain. Patient noted that symptom started yesterday, substernal, radiating to bilateral arm, denies any vomiting, abd pain, diarrhea, or lightheaddedness. ER eval notable Vital signs 132/108, WBC 11.1, Na 146, Cr 1.97. Troponin negative. CXR no acute changes cardiology was consulted prior to admission. Review of Systems Review of Systems: All other systems were reviewed and negative except as noted in the HPI above [facility] Past Medical History Medical History Depression Scoliosis Back pain Irritable bowel syndrome Sleep apnea Migraine Asthma Acid reflux Hypothyroidism Vaginal delivery x2 Fibromyalgia Disorder of thyroid Anxiety High cholesterol Surgical History Surgical History H/O removal of cyst tailbone History of colposcopy History of appendectomy H/O tubal ligation Family History Family History Mother Diabetes mellitus DVT (deep venous thrombosis) Hyperlipidemia Hypertension Father ALS (amyotrophic lateral sclerosis) Hyperlipidemia Hypertension Sibling No problems noted. Sibling MVA (motor vehicle accident) Social History Social History Social History: Patient lives with her Jaun mendenhallates as her emergency contact. She is disabled and does not work. She has 2 living children. she reports smoking in the past but stopped 20 years ago. Smoking packs per day: 0.5 Smoking cigarettes per day: 10.0 Years smoked: 0.5 Smoking pack-years: 0.25 Smoking status: Former smoker Tobacco type: cigarettes Second hand tobacco smoke exposure: Yes Alcohol intake: never Substance use: never Substance use type: does not use Do You Feel Safe in your Home?: Yes Lack of Transportation: No Lack of Food: Never True Current Housing: I Have Housing Concerned About Future Housing: No Difficulty Paying Gas/Electric Bills: No Difficulty Paying for Meds: No Currently Unemployed: No Education: High School Diploma/GED Difficulty w/ Childcare or Family Care: No Living arrangements: with family Occupation/Education: unemployed Additional occupation/education comments: disabled Gender identity (if verbalized by the patient): Female Spiritual care concerns: No Meds Home Medications and Allergies Home Medications ?Medication ?Instructions ?Recorded ?Confirmed ?Type hydroxyzine HCl 50 mg tablet 50 mg PO BID PRN Anxiety 09/25/20 08/30/24 History levothyroxine 25 mcg tablet 25 mcg PO DAILY 09/25/20 08/30/24 History (Euthyrox) metformin 1,000 mg tablet 1,000 mg PO BID 09/25/20 08/30/24 History propranolol 120 mg capsule,24 120 mg PO HS 09/25/20 08/30/24 History hr,extended release topiramate 50 mg tablet 100 mg PO BID 09/25/20 08/30/24 History vilazodone 40 mg tablet (Viibryd) 40 mg PO HS 09/25/20 08/30/24 History ropinirole 1 mg tablet 4 mg PO HS 01/07/22 08/30/24 History buspirone 30 mg tablet 30 mg PO TID 01/11/23 08/30/24 History albuterol sulfate 90 mcg/actuation 1 inh inhalation Q4H PRN shortness 08/09/23 08/30/24 History aerosol inhaler of breath or wheezing aripiprazole 5 mg tablet 5 mg PO DAILY 08/09/23 08/30/24 History fluticasone propionate 50 1 spray intranasal Q12H PRN 08/09/23 08/30/24 History mcg/actuation nasal allergy symptoms spray,suspension (Flonase Allergy Relief) pregabalin 100 mg capsule 100 mg PO Q12H 08/09/23 08/30/24 History trazodone 50 mg tablet 50 mg PO QHS PRN Insomnia 08/09/23 08/30/24 History ascorbic acid (vitamin C) 500 mg 500 mg PO DAILY 08/10/23 08/30/24 History tablet (Vitamin C) cholecalciferol (vitamin D3) 25 25 mcg PO DAILY 08/10/23 08/30/24 History mcg (1,000 unit) capsule (Vitamin D3) multivitamin 1 tablet PO DAILY 08/10/23 08/30/24 History vitamin B complex 1 tablet PO DAILY 08/10/23 08/30/24 History aspirin 81 mg tablet,delayed 81 mg PO DAILY 11/08/23 08/30/24 History release calcium carbonate 600 mg PO .EVERY AFTERNOON 08/30/24 08/30/24 History duloxetine 20 mg capsule,delayed 20 mg PO DAILY 08/30/24 08/30/24 History release empagliflozin 10 mg tablet 10 mg PO DAILY 08/30/24 08/30/24 History (Jardiance) famotidine 40 mg tablet 40 mg PO DAILY 08/30/24 08/30/24 History nystatin 100,000 unit/gram topical 1 applic topical BID PRN rash 08/30/24 08/30/24 History cream nystatin 100,000 unit/gram topical 1 applic topical DAILY PRN rash 08/30/24 08/30/24 History powder Allergies Allergy/AdvReac Type Severity Reaction Status Date / Time Penicillins Allergy Unknown Rash Verified 08/30/24 23:15 Vital Signs Vital Signs - 24 hr 08/30/24 17:15 08/30/24 17:29 08/30/24 17:35 Temperature Pulse Rate 73 70 Respiratory Rate 20 17 Blood Pressure 116/81 91/78 L Pulse Oximetry 96 96 96 Oxygen Delivery Room Air Oxygen Flow Rate 08/30/24 17:36 08/30/24 18:00 08/30/24 19:01 Temperature Pulse Rate 69 70 69 Respiratory Rate 19 15 Blood Pressure 114/90 Pulse Oximetry 90 94 Oxygen Delivery Oxygen Flow Rate 08/30/24 22:11 08/30/24 22:42 08/30/24 22:45 Temperature 98.4 F 97.5 F L Pulse Rate 76 78 78 Respiratory Rate 16 18 18 Blood Pressure 132/108 H 144/90 H Pulse Oximetry 94 98 98 Oxygen Delivery Nasal Cannula Oxygen Flow Rate 2 08/30/24 22:46 08/30/24 23:55 08/31/24 00:00 Temperature Pulse Rate 86 78 80 Respiratory Rate 16 Blood Pressure Pulse Oximetry 96 Oxygen Delivery Nasal Cannula Oxygen Flow Rate 2 08/31/24 00:00 08/31/24 02:00 08/31/24 04:00 Temperature 98.5 F Pulse Rate 78 78 81 Respiratory Rate 16 Blood Pressure 138/98 H Pulse Oximetry 96 Oxygen Delivery Oxygen Flow Rate 08/31/24 04:00 08/31/24 04:00 08/31/24 06:00 Temperature 97.9 F Pulse Rate 77 77 76 Respiratory Rate 16 16 Blood Pressure 132/98 H Pulse Oximetry 99 99 Oxygen Delivery Nasal Cannula Oxygen Flow Rate 2 08/31/24 08:00 08/31/24 08:00 08/31/24 10:00 Temperature 97.5 F L Pulse Rate 76 77 75 Respiratory Rate 20 Blood Pressure 139/98 H Pulse Oximetry 97 Oxygen Delivery Oxygen Flow Rate 08/31/24 12:00 08/31/24 12:00 Temperature 98.3 F Pulse Rate 77 76 Respiratory Rate 20 Blood Pressure 134/103 H Pulse Oximetry 100 Oxygen Delivery Oxygen Flow Rate Exam Narrative: General: alert and comfortable Eyes: EOMI, PERRLA ENNT External ears normal, Neck is supple, no masses, Respiratory systems: Clear to auscultation Cardiovascular S1, S2, normal rhythm, no murmur, rub, or gallop; no thrill or palpable murmurs on palpation. Gastrointestinal: soft, non-tender, and non-distended abdomen with no masses; BS present Skin: no rash, lesions, ulcerations, subcutaneous nodules or induration Musculoskeletal: sternal tenderness on exam Neurologic: Alert and oriented x3, non focal Mental Status Exam: normal affect H&P: Results Labs Labs: Short CBC 08/30/24 08/31/24 Range/Units 17:40 04:25 WBC 12.1 H 11.1 H (4.5-10.0) K/mm3 Hgb 16.9 H 15.8 H (12.0-15.0) g/dL Hct 53.1 H 47.6 H (37.0-47.0) % Plt Count 322 280 (150-375) k/mm3 [facility] 08/30/24 08/30/24 08/31/24 17:40 21:31 04:25 Sodium 147 H 146 H 146 H Potassium 4.2 4.2 4.2 Chloride 112 H 113 H 115 H Carbon Dioxide 18 L 19 L 20 L BUN 31 H 33 H 35 H Creatinine 2.11 H 1.97 H 1.70 H Glucose 102 97 97 Calcium 10.6 H 10.3 H 10.2 Cardiac Enzymes 08/30/24 08/30/24 08/31/24 Range/Units 17:40 20:29 00:10 Troponin I 0.012 < 0.012 < 0.012 (0.000-0.034) ng/mL Liver Function 08/30/24 08/31/24 Range/Units 17:40 04:25 Total Bilirubin 0.8 0.8 (0.2-1.3) mg/dL AST 47 H 37 H (14-36) U/L ALT 18 15 (6-35) U/L Alkaline Phosphatase 43 40 (38-126) U/L Albumin 4.7 4.1 (3.5-5.1) g/dL Assessment and Plan Assessment and plan (1) Chest pain: Qualifiers: Chest pain type: unspecified Qualified Code(s): R07.9 - Chest pain, unspecified Code(s): R07.9 - Chest pain, unspecified Status: Acute Plan Chest pain lilely non cardiac Still having chest pain at the time of this encounter and tender on palpatiopn CXR no acute changes, troponin negative Stress test negative continue PRN pain control cardiology Hypernatremia Na 146 started on D5w monitor EZEQUIEL on CKD Cr 1.7 from 1.97 baseline about 1.3 continue D5w as above Hypertension Contineu hoem meds cardiology added Lisinopril 5mg daily Depression/Anxiety contineu home meds Migraine contineu home meds Asthma Continue home bronchodilators Hypothyroidism continue home med s HLD continue home med s DVT prophylaxis on Sq Lovenox FUll code SDM Jaun Hartman Will monitor patient one more day due to EZEQUIEL adn hypernatremia Hospitalist MIPS Advance Care Plan I have confirmed that the patient's Advanced Care Plan is present, code status is documented, or surrogate decision maker is listed in patient medical record.: Yes Medication Reconciliation I have utilized all available resources to obtain, update and review the patients current medications (includes all prescriptions, OTC, herbals, cannabis, and nutritional supplements).: Yes
[2024-08-31] MEDS: DEXTROSE 5% 1,000 ML 1,000 ML 100 ML IV CONT (16:04)
[2024-08-31] MEDS: TOPIRAMATE 100 MG TABLET PO ×2 (16:59→20:40)
[2024-08-31] MEDS: PROPRANOLOL HCL 60 MG CAPSULE CR 120 MG PO (20:40)
[2024-09-01 05:23] VITALS: BP 136/102; PULSE 72; RESP 16; TEMP 36.6; O2SAT 97
[2024-09-01 05:29] LABS: Hematocrit 48.3 % (37.0-47.0); Hemoglobin 16.0 g/dL (12.0-15.0); Immature Granulocyte Percent A 0.3 % (0-0.5); Lymphocytes Absolute Auto 5.20 K/mm3 (0.9-3.2); Mean Corpuscular HGB Conc 33.1 g/dl (32-36); Mean Corpuscular Hemoglobin 29.5 pg (26-34); Mean Corpuscular Volume 89.1 fl (80-100); Nucleated Red Blood Cells Absolute Auto 0.000 K/mm3 (0.0-0.012); Nucleated Red Blood Cells Perc 0.0 % (0.0-0.2); Platelet Count Result 252 k/mm3 (150-375); Red Blood Count 5.42 M/mm3 (4.2-5.4); White Blood Count 12.0 K/mm3 (4.5-10.0)
[2024-09-01] MEDS: LEVOTHYROXINE SODIUM 25 MCG TABLET PO (05:29)
[2024-09-01 05:47] LABS: Alanine Aminotransferase 16 U/L (6-35); Albumin Level 4.1 g/dL (3.5-5.1); Alkaline Phosphatase 49 U/L (38-126); Anion Gap 17 mmol/L (4-12); Aspartate Amino Transferase 37 U/L (14-36); Bilirubin,Total 0.8 mg/dL (0.2-1.3); Blood Urea Nitrogen 26 mg/dL (7-17); Calcium 10.4 mg/dL (8.4-10.2); Carbon Dioxide 16 mmol/L (22-30); Chloride 107 mmol/L (98-107); Estimated CRCL calculation 58 ml/min; Estimated Glomerular Filt Rate 50; Glucose 127 mg/dL (65-110); Magnesium 1.5 mg/dL (1.6-2.3); Potassium 3.5 mmol/L (3.4-5.0); Sodium 140 mmol/L (137-145); Total Protein 7.6 g/dL (6.3-8.2)
[2024-09-01] MEDS: ASPIRIN 81 MG ENTERIC TABLET PO (09:07)
[2024-09-01] MEDS: EMPAGLIFLOZIN 10 MG TABLET PO (09:07)
[2024-09-01] MEDS: TOPIRAMATE 100 MG TABLET PO (09:08)
[2024-09-01] MEDS: PREGABALIN (*CRX) 50 MG CAPSULE 100 MG PO (09:08)
[2024-09-01] MEDS: MAGNESIUM SULF 2 GM/WATER 50ML 2 GM/50 ML BAG IVPB (12:10)
--- NOTE | 2024-09-01 12:34 | PM.DS ---
DS: Admitting Diagnosis Discharge Date 09/01/24 Admitting Diagnosis chest pain DS: Discharge Diagnosis Discharge Diagnosis (1) Chest pain: Qualifiers: Chest pain type: unspecified Qualified Code(s): R07.9 - Chest pain, unspecified Code(s): R07.9 - Chest pain, unspecified Status: Acute (2) Hypertension: Code(s): I10 - Essential (primary) hypertension Status: Acute DS: Summary Hospital Course Hospital Course: 54 yo female with PMH of depression, back pain, IBS, Migrain, ASthma, Hypothyroidism, Fibromylgia, anxiety HLD who presented to the ER on account of chest pain. Patient noted that symptom started yesterday, substernal, radiating to bilateral arm, denies any vomiting, abd pain, diarrhea, or lightheaddedness. ER eval notable Vital signs 132/108, WBC 11.1, Na 146, Cr 1.97. Troponin negative. CXR no acute changes cardiology was consulted prior to admission. Cardiology was consulted adn patient underwent cardiac stress test and no ischmic changes, patient was dsicharged from cardiology eval. However she was managed for EZEQUIEL and Hypernatremia with IV fluids which resolved today adn patient noted she feels so much better. Na 140 and Cr 1.13 from 1.97. F/u with PCP in 3-5 days F/uw ith cardiology as instructed Time Spent with Patient Time attestation: Total time spent providing and/or coordinating discharge services: DS: Data Data Completed and Pending Labs on day of discharge: Labs from last 24 hours 09/01/24 04:32 WBC 12.0 H RBC 5.42 H Hgb 16.0 H Hct 48.3 H MCV 89.1 MCH 29.5 MCHC 33.1 RDW 14.4 Plt Count 252 MPV 12.2 H Immature Gran % (Auto) 0.3 Neut % (Auto) 45.7 Lymph % (Auto) 43.4 [place] % (Auto) 7.9 Eos % (Auto) 2.0 Baso % (Auto) 0.7 Lymph # (Auto) 5.20 H [place] # (Auto) 1.0 H Eos # (Auto) 0.2 Baso # (Auto) 0.1 Abs Immat Gran (auto) 0.03 Absolute Neuts (auto) 5.5 Absolute Nucleated RBC 0.000 Nucleated RBC % 0.0 Sodium 140 Potassium 3.5 Chloride 107 Carbon Dioxide 16 L Anion Gap 17 H BUN 26 H Creatinine 1.13 H Estim Creat Clear Calc 58 Estimated GFR 50 L Glucose 127 H Calcium 10.4 H Magnesium 1.5 L Total Bilirubin 0.8 AST 37 H ALT 16 Alkaline Phosphatase 49 Total Protein 7.6 Albumin 4.1 Discharge Plan Discharge Attending physician on discharge: Ren Bowers Consulting providers: Martha Gilliland Discharging Clinician: Ren Bowers Anticipated Discharge Date/Time: 09/01/24 12:32 Patient Disposition: Home Activity: as tolerated Diet: as tolerated and heart healthy Patient Instructions: Antibiotic Form, Chest Pain (DC), Heart Healthy Diet (DC) Patient Language: [place] Stand Alone Forms: General Discharge Information Follow-up/Referrals: Jagdish Mccarty MD [Primary Care Provider] - (F/u with PCP in 3-5 days) Martha Gilliland, KILEY-C [Advanced Practice Nurse] - (F/u with cardiology as instructed ) Discharge Medications: New lisinopril 5 mg Tablet 5 mg PO QAM 30 Days Qty: 30 1RF Continued pregabalin 100 mg capsule 100 mg PO Q12H fluticasone propionate [Flonase Allergy Relief] 50 mcg/actuation spray,suspension 1 spray intranasal Q12H PRN (Reason: allergy symptoms) Rx Instructions: administer into each nostril aripiprazole 5 mg tablet 5 mg PO DAILY trazodone 50 mg tablet 50 mg PO QHS PRN (Reason: Insomnia) albuterol sulfate 90 mcg/actuation HFA aerosol inhaler 1 inh inhalation Q4H PRN (Reason: shortness of breath or wheezing) aspirin 81 mg tablet,delayed release (DR/EC) 81 mg PO DAILY hydroxyzine HCl 50 mg tablet 50 mg PO BID PRN (Reason: Anxiety) levothyroxine [Euthyrox] 25 mcg tablet 25 mcg PO DAILY metformin 1,000 mg tablet 1,000 mg PO BID Patient Comments: Prescribed for PCOS not for diabetes propranolol 120 mg capsule,extended release 24 hr 120 mg PO HS topiramate 50 mg tablet 100 mg PO BID vilazodone [Viibryd] 40 mg tablet 40 mg PO HS ropinirole 1 mg tablet 4 mg PO HS buspirone 30 mg tablet 30 mg PO TID multivitamin Tablet 1 tablet PO DAILY ascorbic acid (vitamin C) [Vitamin C] 500 mg Tablet 500 mg PO DAILY vitamin B complex Tablet 1 tablet PO DAILY cholecalciferol (vitamin D3) [Vitamin D3] 25 mcg (1,000 unit) Capsule 25 mcg PO DAILY famotidine 40 mg tablet 40 mg PO DAILY duloxetine 20 mg capsule,delayed release(DR/EC) 20 mg PO DAILY Jardiance 10 mg tablet 10 mg PO DAILY calcium carbonate 600 mg calcium (1,500 mg) tablet 600 mg PO .EVERY AFTERNOON nystatin 100,000 unit/gram cream 1 applic topical BID PRN (Reason: rash) Rx Instructions: Apply a thin layer to affect areas twice daily for rash. (groin) nystatin 100,000 unit/gram powder 1 applic topical DAILY PRN (Reason: rash) Rx Instructions: apply a thin layer to groin and beneath breasts daily to prevent rashes Date of admission: 08/30/24 21:02 Primary Care Provider: Jagdish Mccarty Admitting Provider: Yusra Dennison Attending physician on admission: Yusra Dennison Condition: Stable
== END 2024-09-01 13:45 | disposition home or self-care (01) ==
LOC: ANHED 21:02 → ANHIMU 08-31 00:39 → ANH2MED 09-01 12:33 → ANHIMU 09-03 08:35
PROVIDERS: Physician Assistant; Admitting Provider General Practice; Emergency Provider Emergency Medicine; PCP Internal Medicine; Visit Provider Internal Medicine
DX: R07.89 Other chest pain (principal); I10 Essential (primary) hypertension; N17.9 Acute kidney failure, unspecified; E87.0 Hyperosmolality and hypernatremia; M79.602 Pain in left arm; M79.601 Pain in right arm; E78.00 Pure hypercholesterolemia, unspecified; J45.909 Unspecified asthma, uncomplicated; M79.7 Fibromyalgia; G43.909 Migraine, unspecified, not intractable, without status migrainosus; F32.A Depression, unspecified; F41.9 Anxiety disorder, unspecified; K58.9 Irritable bowel syndrome, unspecified; E03.9 Hypothyroidism, unspecified; M41.9 Scoliosis, unspecified; M54.9 Dorsalgia, unspecified; G47.30 Sleep apnea, unspecified; E28.2 Polycystic ovarian syndrome; Z20.822 Contact with and (suspected) exposure to COVID-19; Z79.51 Long term (current) use of inhaled steroids; Z79.82 Long term (current) use of aspirin; Z79.84 Long term (current) use of oral hypoglycemic drugs; Z79.899 Other long term (current) drug therapy; Z87.891 Personal history of nicotine dependence
CPT/HCPCS: 36415; 71045; 78452; 80048; 80053; 83605; 83690; 83735; 83880; 84484; 85025; 85380; 85610; 85730; 87637; 93005; 93017; 96360; 96374; 99285; A9270; A9502; G0378; G0379; J1650; J2785; J3475; J7030; J7070

== ENCOUNTER 2024-09-28 13:56 | Outpatient (CLI) | payer OTHER, SELFPAY ==
--- OUTSIDE RECORDS SUMMARY | 2024-09-28 14:00 | XMS_ITS | Clinical Summary ---
Author Organization [facility] [address] Address [address] [place] [address] Care Team Providers Care Assembly Line Supervisor Name Role Phone Mike Mullen NP Primary Care Provider [phone] Allergies Active Allergy Reactions Criticality Noted Date [...] Take 1 capsule by mouth daily Active lisinopriL (PRINIVIL,ZESTR IL) 5 mg tablet Take 1 tablet (5 mg total) by mouth every morning 09/01/2024 Active Active Problems Problem Noted Date Diagnosed Date Dyspnea on exertion 09/10/2024 Abnormal EKG 08/20/2024 Chest pain on breathing 08/20/2024 Encounters Date Type Department Care Team Description 09/11/2024 Orders Only [facility] Cardiology [address] [place] [phone] Loyda Mijares MD 09/10/2024 11:15 AM CDT Office Visit [facility] Cardiology [address] [place] [phone] Pietro Diaz MD Other chest pain (Primary Dx) 09/03/2024 Orders Only [facility] Cardiology [address] [place] [phone] Loyda Mijares MD 08/20/2024 2:30 PM CDT Office Visit [facility] Cardiology [address] [place] [phone] Pietro Diaz MD Lipid screening (Primary Dx); Chest pain on breathing; Abnormal EKG 08/20/2024 Telephone [facility] [address] [place] [phone] Pietro Diaz MD 07/17/2024 Telephone [facility] Cardiology at [address] [place] [address] Brandon Chua MD from Last [...] on file 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 Gender Identity Female 07/30/2024 1:33 PM CDT Sexual Orientation Straight 07/30/2024 1: 33 PM CDT Obstetrics History Last Filed Vital Signs Vital Sign Reading Time Taken Comments Blood Pressure 129/67 09/26/2014 7:45 PM CDT Pulse 73 09/10/2024 11:04 AM CDT Temperature 36.9 C (98.5 F) 09/26/2014 7:45 PM CDT Respiratory Rate 16 09/10/2024 11:04 AM CDT Oxygen Saturation 92% 09/10/2024 11:04 AM CDT Inhaled Oxygen Concentration - - Weight 95.3 kg (210 lb) 09/10/2024 11:04 AM CDT Height 167.6 cm (5' 6) 09/10/2024 11:04 AM CDT Body Mass Index 33.89 09/10/2024 11:04 AM CDT Plan of Treatment Health Maintenance Due [...] Procedure Name Priority Date/Time Associated Diagnosis Comments STRESS ECHO PHARMACOLOGIC W DOPPLER/CF Routine 08/30/2024 3:18 PM CDT NM MPI SPECT (REST AND/OR STRESS) MULTIPLE STUDIES Schedule Routine, Read Routine (OP Routine) 08/30/2024 8:41 AM CDT ELECTROCARDIOGRAM REPORT Routine 025 2:28 PM CDT Chest pain on breathing Abnormal EKG POCT LIPID PANEL Routine 08/20/2024 2:21 PM CDT Lipid screening from Last 3 Months Results * Stress Echo Pharmacologic W Doppler/CF (08/30/2024 3:18 PM CDT) Anatomical Region Laterality Modality Ultrasound Historical Provider CV ECHO PROCEDURES Edited Result - Final * NM MPI SPECT (Rest and/or Stress) Multiple Studies (08/30/2024 8:41 AM CDT) Anatomical Region Laterality Modality Body N/A Nuclear Medicine Historical Provider IMG NM PROCEDURES Edited Result - Final * Electrocardiogram Report (08/20/2024 2:28 PM CDT) [...] from Last 3 Months Insurance Care Teams Assembly Line Supervisor Relationship Specialty Start Date End Date Mike Mullen NP [address] [place] [address] [place] [address] PCP - General Pain Management 09/25/20
--- NOTE | 2024-09-28 17:52 | WPDPFTINT ---
PFT Procedure Performed PFT Procedure Performed Diffusing Cap (DLCO) Flow Vol Loop Spirometry w/o Bronchodil PFT Interpretation This is a pulmonary function test with spirometry, plethysmography and diffusing capacity. The test was performed and results interpreted in accordance with the 2019 and 2005 ATS/ERS Task Force guidelines respectively using the Global Lung Function Initiative-2012 reference equations. Patient demonstrated good effort and cooperation. Reproducibility criteria were met. The quality of the spirometry maneuver was Grade B. Of note, patient struggled with comprehension of testing and was unable to perform plethysmography Findings: Spirometry: The contour the inspiratory and expiratory flow tracing are normal. The FVC is 2.77 L, 78% predicted. The FEV1 is 2.25 L, 81% predicted. The FEV1: FVC ratio is 81%. Diffusing capacity: The diffusing capacity unadjusted for hemoglobin and carboxyhemoglobin is 19.9, 87% predicted. The diffusing capacity adjusted for alveolar volume is 4.94, 112% predicted. Impression: The spirometry is normal without evidence of an obstructive abnormality. The diffusing capacity is normal. There are no prior studies for comparison
== END 2024-09-28 13:57 | disposition home or self-care (01) ==
PROVIDERS: PCP Internal Medicine; Visit Provider Internal Medicine
DX: R06.09 Other forms of dyspnea (principal)
CPT/HCPCS: 94375; 94729